=== PATIENT | female | born 1990 | race Caucasian/White ===

== ENCOUNTER 2019-07-21 23:53 | Emergency (ER) | payer OTHER ==
[2019-07-22] MEDS ORDERED: CYCLOBENZAPRINE 10 MG TAB ONE (01:12)
[2019-07-22] MEDS ORDERED: HYDROCODONE/APAP 7.5/325 MG TAB ONE (01:12)
--- NOTE | 2019-07-22 01:48 | ER ---
Nurse's Notes [facility] Name: Mayda Argueta Age: 28 yrs Sex: Female : 1990 Arrival Date: 07/21/2019 Time: 23:56 Bed 6 Private MD: Diagnosis: Strain of muscle, fascia and tendon at neck level;Radiculopathy, cervicothoracic region Presentation: 07/21 00:04 Chief complaint:. Chief complaint: Patient states: Bilateral shoulder pain that ll1 radiates down both arms. Had massage/adjustment and Tuesday. Unable to barely lift arms now. Reports 10/10 pain today. + radial pulses, cap. refill <2 seconds. 26 weeks 5 days . G3, P1. Denies vaginal bleeding/discharge. + movement. Coronavirus screen: Proceed with normal triage. Patient denies a cough. Patient denies shortness of breath or difficulty breathing. Patient denies measured and/or subjective temperature greater than 100.4F prior to today's visit. Patient denies travel on a cruise ship or to a country the [facility] currently lists as an affected area. Patient denies contact with known and/or suspected case of COVID-19. Ebola Screen: Patient denies travel to an Ebola-affected area in the 21 days before illness onset. Initial Sepsis Screen: Does the patient meet any 2 criteria? HR > 90 bpm. No. Patient's initial sepsis screen is negative. Does the patient have a suspected source of infection? No. Patient's initial sepsis screen is negative. Risk Assessment: Do you want to hurt yourself or someone else? Patient reports no desire to harm self or others. Onset of symptoms was July 17, 2019. 00:04 Method Of Arrival: Ambulatory ll1 00:04 Acuity: CATHY 3 ll1 Historical: - Allergies: 00:07 No Known Allergies; ll1 - PMHx: 00:07 None; ll1 - PSHx: 00:07 Cholecystectomy; ; Appendectomy; ll1 - Social history:: Smoking status: Patient denies any tobacco usage or history of. Patient/guardian denies using alcohol, street drugs, tobacco products. Screenin:00 Abuse screen: Denies threats or abuse. Nutritional screening: No deficits noted. jb4 Tuberculosis screening: No symptoms or risk factors identified. Fall Risk None identified. Assessment: 00:00 General: Appears in no apparent distress. uncomfortable, Behavior is calm, cooperative, jb4 appropriate for age. Pain: Complains of pain in left scapular area and right scapular area Pain radiates to right arm and left arm Pain currently is 10 out of 10 on a pain scale. Neuro: Level of Consciousness is awake, alert, obeys commands, Oriented to person, place, time, situation. Cardiovascular: Patient's skin is warm and dry. Respiratory: Airway is patent Respiratory effort is even, unlabored, Respiratory pattern is regular, symmetrical. GI: No signs and/or symptoms were reported involving the gastrointestinal system. : No signs and/or symptoms were reported regarding the genitourinary system. EENT: No signs and/or symptoms were reported regarding the EENT system. Derm: Skin is intact, Skin is pink, warm \T\ dry. Musculoskeletal: Circulation, motion, and sensation intact. Range of motion: limited in left arm and right arm. 01:00 Reassessment: Patient appears in no apparent distress at this time. Patient and/or jb4 family updated on plan of care and expected duration. Pain level reassessed. Patient is alert, oriented x 3, equal unlabored respirations, skin warm/dry/pink. 02:08 Reassessment: Patient appears in no apparent distress at this time. Patient and/or jb4 family updated on plan of care and expected duration. Pain level reassessed. Patient is alert, oriented x 3, equal unlabored respirations, skin warm/dry/pink. pt reports pain is better when at rest. Currently reports pain is tolerable. Vital Signs: 00:04 BP 139 / 96; Pulse 96; Resp 18; Temp 98.6; Pulse Ox 97% ; Pain 10/10; ll1 01:15 BP 115 / 79; Pulse 79; Resp 16; Pulse Ox 99% on R/A; jb4 02:00 BP 103 / 75; Pulse 72; Resp 16; Pulse Ox 97% on R/A; jb4 Vitals: 01:28 Heart Tones 155 bpm. rr5 ED Course: 07/20 23:56 Patient arrived in ED. ag3 23:58 Sameer Newby PA is PHCP. cp 23:58 Nikoali House MD is Attending Physician. cp 07/21 00:00 Patient has correct armband on for positive identification. Bed in low position. Call jb4 light in reach. Side rails up X 1. Pulse ox on. NIBP on. 00:07 Triage completed. ll1 00:08 Arm band placed on Patient placed in an exam room, on a stretcher. ll1 00:10 Brian Oviedo, RN is Primary Nurse. jb4 00:12 Rigid cervical collar applied and checked by physician. PMS Intact pre and post ll1 c-collar application. Tolerated procedure well. 00:58 CT C Spine: radiating pain down arms In Process Unspecified. EDMS 02:10 No provider procedures requiring assistance completed. Patient did not have IV access jb4 during this emergency room visit. Administered Medications: 01:13 Drug: Hydrocodone-Acetaminophen (7.5 mg-325 mg) 1 tabs {Note: Rass score 0.} Route: PO; jb4 02:11 Follow up: Response: No adverse reaction; Pain is decreased; RASS: Alert and Calm (0) jb4 01:13 Drug: Flexeril 10 mg Route: PO; jb4 02:10 Follow up: Response: No adverse reaction; Pain is decreased jb4 Outcome: 01:48 Discharge ordered by MD. cp 02:10 Discharged to home ambulatory. jb4 02:10 Condition: stable 02:10 Discharge instructions given to patient, Instructed on discharge instructions, follow up and referral plans. no driving heavy equipment, medication usage, Demonstrated understanding of instructions, follow-up care, medications, Prescriptions given X 3. 02:11 Patient left the ED. jb4 Signatures: Dispatcher [employer] EDAZ Sameer Newby PA PA cp Bryson, James, RN RN jb4 Rasheeda Lira3 Noam Levin, RN RN rr5 Antonio Hills, TK RN ll1 Corrections: (The following items were deleted from the chart) 00:09 00:04 Chief complaint: Patient states: Bilateral shoulder pain that radiates down both ll1 arms. Had massage/adjustment and Tuesday. Unable to barely lift arms now. Reports 10/10 pain today. + radial pulses, cap. refill <2 seconds. ll1 02:11 00:00 Pain: Complains of pain in thoracic area Pain radiates to right arm and left arm jb4 Pain currently is 10 out of 10 on a pain scale. jb4
--- NOTE | 2019-07-22 01:49 | EDPHYS ---
Physician Documentation [facility] Name: Mayda Argueta Age: 28 yrs Sex: Female : 1990 Arrival Date: 07/21/2019 Time: 23:56 Bed 6 Private MD: ED Physician Nikolai House HPI: 07/21 00:05 This 28 yrs old Female presents to ER via Ambulatory with complaints of Arm Pain. cp 00:05 The patient or guardian complains of pain, that is acute. The complaints affect the cp right shoulder and right arm, left shoulder and left arm. Context: Patient reports having adjustment of neck performed by chiropractor on and Tuesday of this past week. Denies immediate pain. Treatment prior to arrival includes: no previous treatment. Associated signs and symptoms: Pertinent positives: pain, weakness, Pertinent negatives: numbness. Historical: - Allergies: 00:07 No Known Allergies; ll1 - PMHx: 00:07 None; ll1 - PSHx: 00:07 Cholecystectomy; ; Appendectomy; ll1 - Social history:: Smoking status: Patient denies any tobacco usage or history of. Patient/guardian denies using alcohol, street drugs, tobacco products. ROS: 00:10 Neck: Positive for pain at rest. cp 00:10 Constitutional: Negative for fever. cp 00:10 ENT: Negative for sore throat, difficulty swallowing, difficulty handling secretions. 00:10 Cardiovascular: Negative for chest pain. 00:10 Respiratory: Negative for cough, shortness of breath. 00:10 Abdomen/GI: Negative for abdominal pain. 00:10 : Negative for vaginal bleeding. 00:10 MS/extremity: Positive for decreased range of motion, pain, of the right arm and left arm, Negative for paresthesias. 00:10 Neuro: Positive for weakness, of the right arm and left arm, Negative for altered mental status, headache. 00:10 All other systems are negative. Exam: 00:26 Constitutional: The patient appears in no acute distress, alert, awake, non-toxic, well cp developed, well nourished, uncomfortable. 00:26 Head/Face: Normocephalic, atraumatic. cp 00:26 Eyes: Periorbital structures: appear normal, Pupils: equal, round, and reactive to light and accomodation, Extraocular movements: intact throughout, Conjunctiva: normal, no exudate, no injection, Lids and lashes: appear normal, bilaterally. 00:26 ENT: External ear(s): are unremarkable, Ear canal(s): are normal, clear, TM's: dullness, bilaterally, Nose: is normal, Mouth: Lips: moist, Oral mucosa: moist, Posterior pharynx: Airway: no evidence of obstruction, patent. 00:26 Neck: C-spine: vertebral tenderness, that is mild, appreciated at C6 and C7, crepitus, is not appreciated, ROM/movement: pain, that is severe, with any movement, limited range of motion, that is moderate, in any direction. 00:26 Chest/axilla: Inspection: normal, Palpation: is normal, no crepitus, no tenderness. 00:26 Cardiovascular: Rate: normal, Rhythm: regular. 00:26 Respiratory: the patient does not display signs of respiratory distress, Respirations: normal, no use of accessory muscles, labored breathing, is not present, Breath sounds: are clear throughout, no decreased breath sounds. 00:26 Abdomen/GI: Inspection: gravid appearance, is noted, Palpation: abdomen is soft and non-tender, in all quadrants. 00:26 Back: pain, that is severe, of the upper thoracic area between scapula, ROM is painful, with all movement. 00:26 Musculoskeletal/extremity: Extremities: grossly normal except: noted in the right arm and left arm: pain, ROM: limited active range of motion due to pain, in the right arm and left arm, Pulses: noted to be 2+ in the right radial artery and left radial artery, the right arm and left arm Sensation intact. 00:26 Neuro: Orientation: to person, place \T\ time. Mentation: is normal, Deep tendon reflexes are 2+ (normal) in the right bicep, right tricep, right brachioradialis, left bicep, left tricep and left brachioradialis. Vital Signs: 00:04 BP 139 / 96; Pulse 96; Resp 18; Temp 98.6; Pulse Ox 97% ; Pain 10/10; ll1 01:15 BP 115 / 79; Pulse 79; Resp 16; Pulse Ox 99% on R/A; jb4 02:00 BP 103 / 75; Pulse 72; Resp 16; Pulse Ox 97% on R/A; jb4 MDM: 07/20 23:59 Patient medically screened. cp 07/21 00:15 Differential diagnosis: cervical fracture, torticollis, cervical sprain. cp 01:47 Data reviewed: vital signs, nurses notes, radiologic studies, CT scan. cp 01:47 Counseling: I had a detailed discussion with the patient and/or guardian regarding: the cp historical points, exam findings, and any diagnostic results supporting the discharge/admit diagnosis, radiology results, the need for outpatient follow up, an OB/Gyne specialist, to return to the emergency department if symptoms worsen or persist or if there are any questions or concerns that arise at home. Response to treatment: the patient's symptoms have markedly improved after treatment, and as a result, I will discharge patient. 07/21 00:07 Order name: CT C Spine: radiating pain down arms cp 07/21 00:07 Order name: FHT's; Complete Time: 01:28 cp 07/21 00:10 Order name: C-Collar; Complete Time: 00:14 cp Administered Medications: 01:13 Drug: Hydrocodone-Acetaminophen (7.5 mg-325 mg) 1 tabs {Note: Rass score 0.} Route: PO; jb4 02:11 Follow up: Response: No adverse reaction; Pain is decreased; RASS: Alert and Calm (0) jb4 01:13 Drug: Flexeril 10 mg Route: PO; jb4 02:10 Follow up: Response: No adverse reaction; Pain is decreased jb4 Disposition: 02:15 Chart complete. cp 02:17 Co-signature as Attending Physician, Nikolai House MD. pkl Disposition: 07/22/19 01:48 Discharged to Home. Impression: Strain of muscle, fascia and tendon at neck level, Radiculopathy, cervicothoracic region. - Condition is Stable. - Discharge Instructions: Cervical Radiculopathy, Cervical Sprain, Heat Therapy. - Prescriptions for Lidoderm 5 % Topical adhesive patch,medicated - apply 2 patch by TRANSDERMAL route once daily As needed; 1 box. Tylenol- Codeine #3 300-30 mg Oral Tablet - take 2 tablets by ORAL route every 6 hours As needed no driving while taking medication; 15 tablet. Cyclobenzaprine 10 mg Oral Tablet - take 1 tablet by ORAL route every 8 hours As needed no driving while taking medication; 10 tablet. - Medication Reconciliation Form, Thank You Letter, Antibiotic Education, Prescription Opioid Use form. - Follow up: Private Physician; When: 2 - 3 days; Reason: Recheck today's complaints. - Problem is new. - Symptoms have improved. Signatures: Dispatcher [employer] EDMS Nikolai House MD MD pkl Page, Corey, PA PA cp Bryson, James RN RN jb4 Antonio Hills RN RN ll1 Corrections: (The following items were deleted from the chart) 02:11 01:48 07/22/2019 01:48 Discharged to Home. Impression: Strain of muscle, fascia and jb4 tendon at neck level; Radiculopathy, cervicothoracic region. Condition is Stable. Forms are Medication Reconciliation Form, Thank You Letter, Antibiotic Education, Prescription Opioid Use. Follow up: Private Physician; When: 2 - 3 days; Reason: Recheck today's complaints. Problem is new. Symptoms have improved. cp
[2019-07-22 02:18] VITALS: TEMP 98.6
[2019-07-22 02:21] VITALS: BP 103/75; O2SAT 97
--- NOTE | 2019-07-22 13:19 | RAD REPORT ---
EXAM DESCRIPTION: CT - C Spine Wo Con - 07/22/2019 6:55 am CLINICAL HISTORY: The patient is 28 years old and is Female; PAIN TECHNIQUE: Axial computed tomography images of the cervical spine without intravenous contrast. Sa gittal and coronal reformatted images were created and reviewed. This CT exam was performed using o ne or more of the following dose reduction techniques: automated exposure control, adjustment of th e mA and/or kV according to patient size, and/or use of iterative reconstruction technique. COMPARISON: No relevant prior studies available. FINDINGS: VERTEBRAE: The vertebral body heights and alignment are maintained. No acute fracture. DISCS/SPINAL CANAL/NEURAL FORAMINA: The intervertebral disc spaces are maintained. No spinal can al stenosis. SOFT TISSUES: The soft tissues are normal. IMPRESSION: No fracture or malalignment of the cervical spine. Electronically signed by: Luli Pendleton MD 07/22/2019 1:13 AM CDT Due to temporary technical issues with the PACS/Fluency reporting system, reports are being signed by the in house radiologist as a courtesy to ensure prompt reporting. The interpreting radiologist is f ully responsible for the content of the report.
== END 2019-07-22 02:11 | disposition home or self-care (01) ==
LOC: ER 23:53
DX: S16.1XXA Strain of muscle, fascia and tendon at neck level, initial encounter (principal); M54.13 Radiculopathy, cervicothoracic region; X58.XXXA Exposure to other specified factors, initial encounter; Y93.89 Activity, other specified; Y92.9 Unspecified place or not applicable
CPT/HCPCS: 72125; 99284

== ENCOUNTER 2020-08-10 19:35 | Emergency (ER) | payer OTHER ==
--- OUTSIDE RECORDS SUMMARY | 2020-08-10 19:38 | XMS REPORT | Continuity of Care Document ---
:1990 Author Organization [facility] t Address [address] [place] [address] Care Team Providers Name Role Phone Lucia Baldwin PHD Attending Clinician Slick Sánchez DO Attending Clinician Fabricio SMITH Attending Clinician Problems This patient has no known problems. Allergies, Adverse Reactions, Alerts This patient has no known allergies or adverse reactions. Medications This patient has no known medications. Procedures This patient has no known procedures. Encounters Start End Encounter Admission Attending Care Care Encounter Source Date/Time Date/Time Type Type Clinicians Facility Department ID 2020-07-04 2020-07-04 SUPRIYA Jarvis [id number] 08:02:38 09:02:38 ne Visit [id number] Clear [id number] [place] [id number] [facility] [address] 2020-06-19 2020-06-19 SUPRIYA Jarvis 1..[id number] 08:11:06 09:11:06 ne Visit [facility] [id number] Clear [id number] [place] [id number] [facility] [address] 2020-06-17 2020-06-17 Patient SUPRIYA Sánchez [id number] 00:00:00 00:00:00 Outreach [facility] [id number] Haroon [facility] [id number] [facility] [id number] 2020-06-12 2020-06-12 Telemedici Denny [facility] [id number] 08:09:12 14:44:13 ne Visit Lucia [employer] [id number] Clear [id number] [place] [id number] [facility] [address] 2020-05-19 2020-05-19 Telephone Denny [facility] [id number] 00:00:00 00:00:00 Lucai [employer] [id number] Clear [id number] [place] [id number] [facility] [address] 2020-04-29 2020-04-29 Telemedici Denny [facility] [id number] 09:04:10 13:44:29 ne Visit Lucia [employer] [id number] Clear [id number] [place] [id number] [facility] [address] 2020-04-01 2020-04-01 Telemedicmary Regalado [facility] [id number] 15:49:47 17:45:43 ne Visit [facility] [id number] [place] [id number] [facility] [phone] [place] [address] [address] One Results This patient has no known results.
[2020-08-10 20:54] LABS: Urine Blood Negative (Negative); Urine Glucose Negative (Negative); Urine Protein Negative (Negative); Urine Specific Gravity >=1.030 (1.005-1.030); Urine pH 5.5 (5.0-7.0)
[2020-08-10 21:11] LABS: Urine Specific Gravity/Preg >1.030 (1.005-1.030)
[2020-08-10 23:12] LABS: Absolute Lymphocytes (CBC) 3.5 K/uL (0.7-4.9); Basophils % 0.7 % (0-1.3); Hematocrit 33.5 % (36.0-45.0); Lymphocytes % 42.4 % (15.3-44.8); MPV 8.7 fL (7.6-11.3)
[2020-08-10] MEDS ORDERED: ONDANSETRON 4 MG/2 ML VIAL ONE (23:12)
[2020-08-10] MEDS ORDERED: NA CHLORIDE 0.9% 1,000 ML ONE (23:12)
[2020-08-10] MEDS ORDERED: MORPHINE 4 MG/ML SYR ONE (23:12)
[2020-08-10 23:23] LABS: ALT/SGPT 33 U/L (12-78); AST/SGOT 25 U/L (15-37); Albumin 3.7 g/dL (3.4-5.0); Alkaline Phosphatase 109 U/L (45-117); BUN Blood Urea Nitrogen 16 mg/dL (7-18); Bicarbonate 28 mmol/L (21-32); Bilirubin Direct < 0.1 mg/dL (0-0.2); Bilirubin Total 0.2 mg/dL (0.2-1.0); Glucose Level 97 mg/dL (74-106); Lipase 98 U/L (73-393); Potassium 3.7 mmol/L (3.5-5.1); Protein, Total 7.8 g/dL (6.4-8.2); Sodium Level 141 mmol/L (136-145)
--- NOTE | 2020-08-10 23:34 | ER ---
Nurse's Notes [facility] Name: Mayda Argueta Age: 29 yrs Sex: Female : 1990 Arrival Date: 08/10/2020 Time: 20:14 Bed 28 Private MD: Diagnosis: Right renal colic Presentation: 08/10 20:14 Chief complaint: Patient states: I may have a kidney stone. R flank pain since ca1 yesterday and nausea. Reports HX of kidney stones. Coronavirus screen: Client denies travel out of the [place] in the last 14 days. nausea, Client presents with at least one sign or symptom that may indicate coronavirus-19. Standard/surgical mask placed on the client. Provider contacted for isolation considerations. Ebola Screen: Patient negative for fever greater than or equal to 101.5 degrees Fahrenheit, and additional compatible Ebola Virus Disease symptoms Patient denies exposure to infectious person. Patient denies travel to an Ebola-affected area in the 21 days before illness onset. No symptoms or risks identified at this time. Initial Sepsis Screen: Does the patient meet any 2 criteria? No. Patient's initial sepsis screen is negative. Does the patient have a suspected source of infection? No. Patient's initial sepsis screen is negative. Risk Assessment: Do you want to hurt yourself or someone else? Patient reports no desire to harm self or others. Onset of symptoms was August 10, 2020. 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 Flu vaccine is not up to date. - Social history:: Smoking status: Patient denies any tobacco usage or history of. Screenin:03 Abuse screen: Denies threats or abuse. Denies injuries from another. Nutritional zb screening: No deficits noted. Tuberculosis screening: No symptoms or risk factors identified. Fall Risk None identified. Assessment: 22:50 General: Appears in no apparent distress. uncomfortable, Behavior is calm, cooperative, zb appropriate for age. Pain: Complains of pain in posterior aspect of right lateral abdomen and anterior aspect of right lateral abdomen Pain radiates to anterior aspect of right lateral abdomen Pain currently is 9 out of 10 on a pain scale. Quality of pain is described as throbbing, Pain began today. Neuro: Level of Consciousness is awake, alert, obeys commands, Oriented to person, place, time, situation. Cardiovascular: Capillary refill < 3 seconds Patient's skin is warm and dry. Respiratory: Airway is patent Respiratory effort is even, unlabored, Respiratory pattern is regular, symmetrical. GI: Abdomen is round Bowel sounds present X 4 quads. Abd is soft and non tender X 4 quads. : Reports pain in right flank(s). Derm: Skin is intact, is healthy with good turgor, Skin is dry, Skin is normal. Musculoskeletal: Circulation, motion, and sensation intact. Range of motion: intact in all extremities. 23:49 Reassessment: Patient appears in no apparent distress at this time. Patient and/or zb family updated on plan of care and expected duration. Pain level reassessed. Patient is alert, oriented x 3, equal unlabored respirations, skin warm/dry/pink. patient ambulated out. gait even and steady. pain decreased. Vital Signs: 20:14 BP 144 / 84; Pulse 60; Resp 16 S; Temp 97.6(TE); Pulse Ox 100% on R/A; Weight 80.74 kg ca1 (R); Height 5 ft. 3 in. (160.02 cm) (R); Pain 8/10; 23:04 BP 123 / 80; Pulse 62; Resp 16; Pulse Ox 96% on R/A; zb 23:48 BP 118 / 73; Pulse 72; Resp 16; Pulse Ox 100% on R/A; zb 20:14 Body Mass Index 31.53 (80.74 kg, 160.02 cm) ca1 ED Course: 20:14 Patient arrived in ED. es 20:16 Triage completed. ca1 20:16 Arm band placed on right wrist. ca1 21:54 CT Stone Protocol In Process Unspecified. EDMS 22:04 Bee Torre RN is Primary Nurse. zb 22:32 Nikolai House MD is Attending Physician. pkl 23:00 Inserted saline lock: 20 gauge in left antecubital area, using aseptic technique. Blood zb collected. 23:26 Patient has correct armband on for positive identification. Bed in low position. Call zb light in reach. Side rails up X 1. Pulse ox on. NIBP on. 23:33 Sumit Sams MD is Referral Physician. pkl 23:49 No provider procedures requiring assistance completed. IV discontinued, intact, zb bleeding controlled, No redness/swelling at site. Pressure dressing applied. Administered Medications: 23:02 Drug: Zofran (Ondansetron) 4 mg Route: IVP; Site: left antecubital; zb 23:30 Follow up: Response: No adverse reaction; Nausea is decreased zb 23:03 Drug: NS 0.9% 1000 ml Route: IV; Rate: 1000 ml; Site: left antecubital; zb 23:45 Follow up: Response: No adverse reaction; IV Status: Completed infusion; IV Intake: zb 1000ml 23:03 Drug: morphine 4 mg {Note: RASS 0.} Route: IVP; Site: left antecubital; zb 23:45 Follow up: Response: No adverse reaction; Pain is decreased; RASS: Alert and Calm (0) zb Outcome: 23:34 Discharge ordered by . pkl 23:49 Discharged to home ambulatory. zb 23:49 Condition: stable 23:49 Discharge instructions given to patient, family, Instructed on discharge instructions, follow up and referral plans. medication usage, Demonstrated understanding of instructions, follow-up care, medications, Prescriptions given X 3. 23:50 Patient left the ED. zb Signatures: Dispatcher [employer] Nikolai Patterson MD MD pkl Kenna Chávez Cheryl, RN RN ca1 Brown, Zipporah, RN RN zb Corrections: (The following items were deleted from the chart) 23:26 23:04 Pulse 62bpm; Resp 16bpm; Pulse Ox 96% RA; zb zb
--- NOTE | 2020-08-10 23:34 | EDPHYS ---
Physician Documentation [facility] Name: Mayda Argueta Age: 29 yrs Sex: Female : 1990 Arrival Date: 08/10/2020 Time: 20:14 Bed 28 Private MD: ED Physician Nikolai House HPI: 08/10 22:44 This 29 yrs old Female presents to ER via Ambulatory with complaints of Nausea, Back pkl Pain. 22:44 The patient complains of pain in the right flank. The pain does not radiate. Onset: The pkl symptoms/episode began/occurred yesterday. Associated signs and symptoms: Pertinent positives: nausea. H/O right kidney stone 1 year ago. 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 Flu vaccine is not up to date. - Social history:: Smoking status: Patient denies any tobacco usage or history of. ROS: 22:44 Eyes: Negative for injury, pain, redness, and discharge, ENT: Negative for injury, pkl pain, and discharge, Neck: Negative for injury, pain, and swelling, Cardiovascular: Negative for chest pain, palpitations, and edema, Respiratory: Negative for shortness of breath, cough, wheezing, and pleuritic chest pain, Abdomen/GI: Negative for abdominal pain, nausea, vomiting, diarrhea, and constipation. 22:44 Back: Positive for flank pain, on the right. 22:44 : Negative for urinary symptoms. 22:44 MS/extremity: Negative for acute changes. 22:44 Skin: Negative for rash. 22:44 Neuro: Negative for altered mental status. Exam: 22:44 Head/Face: Normocephalic, atraumatic. Eyes: Pupils equal round and reactive to light, pkl extra-ocular motions intact. Lids and lashes normal. Conjunctiva and sclera are non-icteric and not injected. Cornea within normal limits. Periorbital areas with no swelling, redness, or edema. ENT: Nares patent. No nasal discharge, no septal abnormalities noted. Tympanic membranes are normal and external auditory canals are clear. Oropharynx with no redness, swelling, or masses, exudates, or evidence of obstruction, uvula midline. Mucous membranes moist. Neck: Trachea midline, no thyromegaly or masses palpated, and no cervical lymphadenopathy. Supple, full range of motion without nuchal rigidity, or vertebral point tenderness. No Meningismus. Chest/axilla: Normal chest wall appearance and motion. Nontender with no deformity. No lesions are appreciated. Cardiovascular: Regular rate and rhythm with a normal S1 and S2. No gallops, murmurs, or rubs. Normal PMI, no JVD. No pulse deficits. Respiratory: Lungs have equal breath sounds bilaterally, clear to auscultation and percussion. No rales, rhonchi or wheezes noted. No increased work of breathing, no retractions or nasal flaring. Abdomen/GI: Soft, non-tender, with normal bowel sounds. No distension or tympany. No guarding or rebound. No evidence of tenderness throughout. 22:44 Back: pain, that is moderate, of the right flank. 22:44 : Exam negative for acute changes. 22:44 Musculoskeletal/extremity: Exam is negative for acute changes. 22:44 Skin: Exam negative for rash. 22:44 Neuro: Orientation: is normal, Mentation: is normal, Cranial nerves: grossly normal, Motor: is normal. Vital Signs: 20:14 BP 144 / 84; Pulse 60; Resp 16 S; Temp 97.6(TE); Pulse Ox 100% on R/A; Weight 80.74 kg ca1 (R); Height 5 ft. 3 in. (160.02 cm) (R); Pain 8/10; 23:04 BP 123 / 80; Pulse 62; Resp 16; Pulse Ox 96% on R/A; zb 23:48 BP 118 / 73; Pulse 72; Resp 16; Pulse Ox 100% on R/A; zb 20:14 Body Mass Index 31.53 (80.74 kg, 160.02 cm) ca1 MDM: 22:32 Patient medically screened. pkl 23:30 Data reviewed: vital signs, nurses notes, lab test result(s), radiologic studies, CT pkl scan. ED course: Discussed lab. and CT Scan results with patient. Advised to follow up with Urologist in 2 to 3 days. Return if necessary. 08/10 20:54 Order name: Urine Dipstick-Ancillary; Complete Time: 22:40 EDMS 08/10 20:54 Order name: Urine --Ancillary (enter results); Complete Time: 22:40 iw 08/10 22:42 Order name: Basic Metabolic Panel; Complete Time: 23:27 pkl 08/10 22:42 Order name: CBC with Diff; Complete Time: 23:17 pkl 08/10 22:42 Order name: Hepatic Function; Complete Time: 23:27 pkl 08/10 22:42 Order name: Lipase; Complete Time: 23:27 pkl 08/10 20:55 Order name: CT Stone Protocol iw 08/10 22:42 Order name: IV Saline Lock; Complete Time: 22:48 pkl 08/10 22:42 Order name: Labs collected and sent; Complete Time: 22:48 pkl Administered Medications: 23:02 Drug: Zofran (Ondansetron) 4 mg Route: IVP; Site: left antecubital; zb 23:30 Follow up: Response: No adverse reaction; Nausea is decreased zb 23:03 Drug: NS 0.9% 1000 ml Route: IV; Rate: 1000 ml; Site: left antecubital; zb 23:45 Follow up: Response: No adverse reaction; IV Status: Completed infusion; IV Intake: zb 1000ml 23:03 Drug: morphine 4 mg {Note: RASS 0.} Route: IVP; Site: left antecubital; zb 23:45 Follow up: Response: No adverse reaction; Pain is decreased; RASS: Alert and Calm (0) zb Disposition: 08/10/20 23:34 Discharged to Home. Impression: Right renal colic. - Condition is Stable. - Prescriptions for Zofran 4 mg Oral Tablet - take 1 tablet by ORAL route every 12 hours As needed; 10 tablet. Flomax 0.4 mg Oral Capsule, Sust. Release 24 hr - take 1 capsule by ORAL route once daily 1/2 hour following the same meal each day; 15 capsule. - Medication Reconciliation Form, Thank You Letter, Antibiotic Education, Prescription Opioid Use form. - Follow up: Sumit Sams MD; When: 2 - 3 days; Reason: Re-evaluation by your physician. - Problem is new. - Symptoms have improved. Signatures: Dispatcher [employer] Nikolai Patterson MD MD pkPrachi Rhodes RN Bee Goyal RN RN zb Corrections: (The following items were deleted from the chart) 23:50 23:34 08/10/2020 23:34 Discharged to Home. Impression: Right renal colic. Condition is zb Stable. Forms are Medication Reconciliation Form, Thank You Letter, Antibiotic Education, Prescription Opioid Use. Follow up: Sumit Sams; When: 2 - 3 days; Reason: Re-evaluation by your physician. Problem is new. Symptoms have improved. pkl
[2020-08-11 00:29] VITALS: TEMP 97.6
[2020-08-11 00:36] VITALS: BP 118/73; O2SAT 100
--- NOTE | 2020-08-11 12:25 | RAD REPORT ---
EXAM DESCRIPTION: CT - Stone Protocol - 08/11/2020 6:26 am CLINICAL HISTORY: The patient is 29 years old and is Female; KIDNEY STONES TECHNIQUE: Axial computed tomography images of the abdomen and pelvis without intravenous contrast. Sagittal and coronal reformatted images were created and reviewed. This CT exam was performed usi ng one or more of the following dose reduction techniques: automated exposure control, adjustment o f the mA and/or kV according to patient size, and/or use of iterative reconstruction technique. DLP: 730 mGy*cm COMPARISON: None. FINDINGS: LUNG BASES: Lung bases are clear. HEART: Visualized heart is normal. ABDOMEN: LIVER: Unremarkable. GALLBLADDER AND BILE DUCTS: Prior cholecystectomy. No ductal dilation. PANCREAS: Unremarkable. No ductal dilation. SPLEEN: Unremarkable. No splenomegaly. ADRENALS: Unremarkable. No mass. KIDNEYS AND URETERS: Bilateral nonobstructive renal stones. No hydronephrosis. STOMACH AND BOWEL: Unremarkable. No obstruction. No mucosal thickening. PELVIS: APPENDIX: Prior appendectomy. BLADDER: Bladder is decompressed. No stones. REPRODUCTIVE: Unremarkable as visualized. ABDOMEN and PELVIS: INTRAPERITONEAL SPACE: Unremarkable. No free air. No significant fluid collection. BONES/JOINTS: No acute fracture. No dislocation. SOFT TISSUES: Bilateral breast implants. VASCULATURE: Unremarkable. No abdominal aortic aneurysm. LYMPH NODES: Unremarkable. No enlarged lymph nodes. TUBES, LINES AND DEVICES: Intrauterine contraceptive device. IMPRESSION: No acute abdominal or pelvic abnormality. No obstructive uropathy. Bilateral nonobstructive renal stones. Electronically signed by: Moiz Campos DO 08/10/2020 10:28 PM CDT Due to temporary technical issues with the PACS/Fluency reporting system, reports are being signed by the in house radiologist without review as a courtesy to ensure prompt reporting. The interpreting r adiologist is fully responsible for the content of the report.
== END 2020-08-10 23:50 | disposition home or self-care (01) ==
LOC: ER 19:35
DX: N23 Unspecified renal colic (principal); Z87.442 Personal history of urinary calculi
CPT/HCPCS: 85025; 80048; 36415; 81025; 80076; 81003; 83690; 76377; 74176; J7030; J2405; 96361; 96374; 96375; 99284

== ENCOUNTER 2021-08-22 18:09 | Emergency (ER) | payer OTHER ==
--- OUTSIDE RECORDS SUMMARY | 2021-08-22 18:12 | XMS REPORT | Continuity of Care Document ---
:1990 Author Organization [facility] t Address [address] [place] [address] Care Team Providers Name Role Phone David BLOCK, Keisha A Primary Care Physician [phone] Doctor Unassigned, Name Attending Clinician Unavailable Denny PHD Attending Clinician Haroon Sánchez DO Attending Clinician Fabricio SMITH Attending Clinician Payers Payer Name Policy Type Policy Number Effective Date Expiration Date S ource Problems Condition Condition Condition Status Onset Resolution Last Treating Co mments Source Name Details Category Date Date Treatment Clinician Date ERRONEOUS ERRONEOUS Disease Active 2020-03 Last Uni vers ENCOUNTER- ENCOUNTER- 2 Assessmen ity of -DISREGARD -DISREGARD 00:00: t & Plan: [place] [id number] [place] [facility] g of this Branch note might be different from the original. Error Cholestasi Cholestasi Disease Active 2020-0 U nivers s of s of 7-07 [place] 37 weeks 37 weeks Disease Active 2019- Unive rs gestation gestation 7-06 ity of of of 00:00: [place] 00 [facility] Branch Obesity Obesity Disease Active 2018-03 Univers (BMI (BMI 1-22 ity of 30-39.9) 30-39.9) 00:00: [place] [address] Medical Branch Disease Active U nivers depression depression 4-04 it y of 00:00: [place] 00 Medical Branch Calculus Calculus Disease Active 2017-03 Overview: Un vladimir of of 0-05 Formattin ity of gallbladde gallbladde 00:00: g of this [place] r without r without 00 note [facility] cholecysti cholecysti might be Branch tis tis different without without from the obstructio obstructio original. n n Added automatic ally from request for surgery [id number] Cholelithi Cholelithi Disease Active 2017-03 U nivers asis asis 0-02 ity of 00:00: [place] 00 [facility] Branch Cholestasi Cholestasi Disease Active U nivers s of s of 8-21 [place] in third in third 00 Medica l trimester trimester Bran ch Depression Depression Disease Active U nivers during during 8-03 [place] third [place] third 00 Med[place] l trimester trimester Bran ch Anemia of Anemia of Disease Active Uni vers mother in mother in 6-19 [place]y of , , [place] ante[place] antepartum 00 [facility] High-risk High-risk Disease Active Uni vers 2-23 ity of in third in third 00:00: [place] trimester trimester 00 [facility] Branch Maternal Maternal Disease Active Unive rs condyloma condyloma 1-23 ity of acuminatum [place]uminatum [place] affecting affecting 00 [facility] , , Br anch antepartum antepartum Allergies, Adverse Reactions, Alerts This patient has no known allergies or adverse reactions. Family History Family Member Diagnosis Comments Start Date Stop Date Source Natural father No Significant Univer sity of Medical Problems [facility] Maternal Diabetes [place] of grandmother [facility] Natural mother No Significant Univer sity of Medical Problems [facility] Family member Arthritis [facility] Family member Asthma [facility] Family member defects [facility] Family member Cancer [facility] Family member Colon Cancer [facility] Family member Depression [facility] Family member Genetic [facility] Family member Heart [facility] Family member High cholesterol [facility] member Hypertension Universit y of [facility] Family member Mental retardation Uni versity of [facility] Family member Neurological Universit y of [facility] Family member Osteoporosis Universit y of [facility] Family member Other - see University of comments [facility] Family member Ovarian Cancer Univers ity of [facility] Family member Psychiatry [facility] Family member Uterine Cancer [facility] Social History Social Habit Start Date Stop Date Quantity Comments Source Alcohol intake 2021-07-23 2021-07-23 Ex-drinker [facility] 00:00:00 00:00:00 (finding) [facility] Tobacco use and 2017-04-19 2017-04-19 Never used Universit y of exposure 00:00:00 00:00:00 [facility] Sex Ass[birth year] At [birth year] Universit y of 00:00:00 00:00:00 [facility] Smoking Status Start Date Stop Date Source Never smoker [facility] Medications Ordered Filled Start Stop Current Ordering Indication Dosage Frequency Signature Comments Components Source Medication Medication Date Date Medication? Clinician (SIG) Name Name buPROPion Yes [id number] 150mg Take 1 Univers XL 150 mg -28 tablet by ity o f 24 hr 00:00: mouth [place] tablet 00 daily. Medical Branch busPIRone 5 2021- No [id number] 5mg Take 1 Univers mg tablet 2-05 30-05 tablet by ity of 00:00: 04:59 mouth 3 [place] 00 :00 (three) Medical times [place] daily for 90 days. traZODone 2021- No [id number] 50mg Take 1 Univers 50 mg 2-03 05-05 tablet by ity of tablet 00:00: 04:59 mouth at [place] 00 :00 bedtime Medical for 90 Branch days. buPROPion 2021- No [id number] 150mg Take 1 Univers XL 150 mg 2-03 -28 tablet by ity of 24 hr 00:00: 00:00 mouth [place] tablet 00 :00 daily for Medical 90 days. Branch cephALEXin Yes [id number] 500mg Take 1 Univers 500 mg 6-17 capsule by ity of capsule 00:00: mouth 4 [place] 00 (four) Medical times Branch daily. miSOPROStoL 2019-03 Yes [id number] 1 po the Univers 200 mcg 2-16 evening ity of tablet 00:00: prior to [place] 00 the Medical procedure Branch PNV,calcium 2019-03 Yes [id number] 1{tbl} Take 1 Univers 72-iron,car 0-22 tablet by ity of b-folic 00:00: mouth [place] ( 00 daily. Medical PLUS) 29 mg Branch iron- 1 mg Tab docusate Yes [id number] 240mg Take 1 U nivers calcium 240 7-09 capsule by it y of mg capsule 00:00: mouth once [place] 00 daily as Medical needed for Branch Constipati on. Immunizations Ordered Filled Immunization Date Status Comments [facility] e Immunization Name Name TDAP (ADACEL) 2019-08-09 Completed University of VACCINE 00:00:00 [facility] Influenza Virus 2019-03-16 Completed Universit y of Vaccine Quad .5 mL 00:00:00 [facility] IM 6+ MO Branch Influenza Virus 2018-01-06 Completed Universit y of Vaccine Quad .5 mL 00:00:00 [facility] IM 6+ MO Branch MMR 2018-01-06 Completed University of 00:00:00 [facility] TDAP 2017-10-11 Completed University of 00:00:00 [facility] Vital Signs Vital Name Observation Time Observation Value Comments Source Systolic blood 2021-03-27 20:49:00 122 mm[Hg] Univer sity of pressure [facility] Diastolic blood 2021-03-27 20:49:00 80 mm[Hg] [facility] Heart rate 2021-03-27 20:49:00 69 /min [facility] Body temperature 2021-03-27 20:49:00 37.06 Celia [facility] Body height 2021-03-27 20:49:00 160 cm [facility] Body weight 2021-03-27 20:49:00 80.695 kg [facility] BMI 2021-03-27 20:49:00 31.51 kg/m2 [facility] Oxygen saturation in 2021-03-27 20:49:00 98 /min [facility] Arterial blood by [facility] Pulse oximetry Branch Respiratory rate 2021-02-13 13:41:00 18 /min Univ ersity of [place] [facility] Procedures Procedure Date / Time Performing Clinician Source Performed AUTHORIZATION FOR 2021-05-25 06:01:00 Doctor Unassigned, No Univ [facility] RELEASE OF PHI Name Medical Branch Encounters Start End Encounter Admission Attending Care Care Encounter Source Date/Time Date/Time Type Type Clinicians Facility Department ID 2021-05-25 2021-05-25 Orders Doctor [id number] Univers 00:00:00 00:00:00 Only Unassigned, [id number] ity of [place] 3.104.2.7 [place] .[id number] Medica l .8 Branch 2020-07-04 2020-07-04 Telemedicmary Baldwin [facility] [id number] 08:02:38 09:02:38 ne Visit LuciaMineful [id number] [place] 4.2.7.2.686 [place] [id number] Medical [address] 2020-06-19 2020-06-19 Telemedici Denny [place] [id number] 08:11:06 09:11:06 ne Visit LuciaMineful [id number] [place] [id number] [place] [id number] Medical [address] 2020-06-17 2020-06-17 Patient Gonzalo [facility] [id number] 00:00:00 00:00:00 Outreach Slick [facility] [id number] [facility] [id number] [facility] [id number] 2020-06-12 2020-06-12 Telemedicmary Baldwin [place] [id number] 08:09:12 14:44:13 ne Visit LuciaMineful [id number] [place] 4.2.7.2.686 [place] [id number] Medical [address] 2020-05-19 2020-05-19 Telephone Denny GAKYLEIGH [id number] 00:00:00 00:00:00 LuciaMineful [id number] [place] 4.2.7.2.686 [place] [id number] Medical [address] 2020-04-29 2020-04-29 Telemedici Denny [facility] [id number] 09:04:10 13:44:29 ne Visit [facility] [id number] [place] [id number] [place] [id number] Medical [address] 2020-04-01 2020-04-01 Maryana Regalado [facility] [id number] 15:49:47 17:45:43 ne Visit Jessica [employer] [id number] [place] 4.2.7.2.686 [place] [phone] [place] [address] [address] One Results This patient has no known results.
[2021-08-22 19:37] LABS: Urine Blood Negative (Negative); Urine Glucose Negative (Negative); Urine Protein Negative (Negative)
[2021-08-22] MEDS ORDERED: ONDANSETRON 4 MG/2 ML VIAL ONE (19:45)
[2021-08-22] MEDS ORDERED: MAGNESIUM SULFATE 1 gm IVPB 1 GM/100 ML BAG IV ONE (19:45)
[2021-08-22] MEDS ORDERED: MORPHINE 4 MG/ML SYR ONE (19:45)
[2021-08-22 19:50] LABS: Absolute Lymphocytes (CBC) 3.3 K/uL (0.7-4.9); Hematocrit 37.9 % (36.0-45.0); MPV 8.3 fL (7.6-11.3); RBC Red Blood Cell Count 4.36 M/uL (3.86-4.86)
[2021-08-22 19:54] LABS: Urine Bacteria <20 /HPF (<20); Urine RBC <5 /HPF (NONE SEEN)
[2021-08-22 20:05] LABS: Albumin 3.9 g/dL (3.4-5.0); Bilirubin Total 0.2 mg/dL (0.2-1.0); Potassium 3.9 mmol/L (3.5-5.1); Protein, Total 7.6 g/dL (6.4-8.2)
--- NOTE | 2021-08-22 20:07 | RAD REPORT ---
EXAM DESCRIPTION: CT - Stone Protocol - 08/22/2021 7:49 pm CLINICAL HISTORY: Abdominal pain. Right flank pain COMPARISON: 2020 TECHNIQUE: Computed axial tomography of the abdomen pelvis was obtained without oral or IV contrast. Lack of IV and oral contrast limits evaluation of solid organs, bowel, and vessels. Coronal reformat bo images were obtained and reviewed. All CT scans are performed using dose optimization technique as appropriate and may include automated exposure control or mA/KV adjustment according to patient size. FINDINGS: Multiple, bilateral punctate renal calculi. No hydronephrosis. An ureteral calculus is not noted. A bladder calculus is not present. Cholecystectomy. The liver, spleen, pancreas and adrenals appear grossly normal There is no evidence of diverticulitis. No adnexal mass IMPRESSION: Bilateral, multiple nonobstructing renal calculi
--- NOTE | 2021-08-22 21:34 | RAD REPORT ---
EXAM DESCRIPTION: US - Transvaginal Study Probe - 08/22/2021 9:22 pm CLINICAL HISTORY: Pelvic pain COMPARISON: CT August 22, 2021 FINDINGS: The uterus measures 9 x 3 x 6 cm. A fibroid is not seen. The endometrial stripe measures 5 millimeters The ovaries are normal in size and echotexture. Normal blood flow The right and left adnexa unremarkable No significant free fluid is seen. IMPRESSION: Unremarkable pelvic ultrasound
--- NOTE | 2021-08-22 21:45 | EDPHYS ---
Physician Documentation [facility] Name: Mayda Argueta Age: 30 yrs Sex: Female : 1990 Arrival Date: 08/22/2021 Time: 18:19 Bed 6 Private MD: ED Physician Chris Soliz HPI: 08/22 19:18 This 30 yrs old Female presents to ER via Ambulatory with complaints of Low Back Pain, rn Nausea. 19:18 The patient presents with pain that is acute. The symptoms are located in the low back. rn The pain radiates to the abdomen. Onset: The symptoms/episode began/occurred 5 day(s) ago. Modifying factors: The patient symptoms are alleviated by nothing, the patient symptoms are aggravated by nothing. Associated signs and symptoms: Pertinent negatives: chest pain, dysuria, fever, hematuria, incontinence, nausea, numbness, tingling, urinary retention, vomiting, weakness. Severity of symptoms: At their worst the symptoms were moderate, in the emergency department the symptoms are unchanged. The patient has experienced similar episodes in the past. The patient has not recently seen a physician. Pt reports right lower back pain, radiates to right lower abdomen, not assoc with fever/vomiting/dysuria/hematuria. Similar to previous kidney stones. Has never required intervention for previous stones. Has had cholecystectomy and appendectomy. No diarrhea. . 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 - Social history:: Smoking status: Patient denies any tobacco usage or history of. Patient/guardian denies using alcohol. - Family history:: not pertinent. - Hospitalizations: : No recent hospitalization is reported. ROS: 19:18 Constitutional: Negative for fever, chills, and weight loss, Eyes: Negative for injury, rn pain, redness, and discharge, Neck: Negative for injury, pain, and swelling, Cardiovascular: Negative for chest pain, palpitations, and edema, Respiratory: Negative for shortness of breath, cough, wheezing, and pleuritic chest pain, Abdomen/GI: Negative for nausea, vomiting, diarrhea, and constipation, Back: Negative for injury and pain, : Negative for injury, bleeding, discharge, and swelling, MS/Extremity: Negative for injury and deformity, Skin: Negative for injury, rash, and discoloration, Neuro: Negative for headache, weakness, numbness, tingling, and seizure. Exam: 19:18 Constitutional: This is a well developed, well nourished patient who is awake, alert, rn and in no acute distress. Head/Face: Normocephalic, atraumatic. Eyes: Periorbital areas with no swelling, redness, or edema. Cardiovascular: Regular rate and rhythm. No pulse deficits. Respiratory: No increased work of breathing, no retractions or nasal flaring. Abdomen/GI: Soft, non-tender Skin: Warm, dry MS/ Extremity: Pulses equal, no cyanosis. Neuro: Awake and alert, GCS 15 Vital Signs: 18:41 BP 124 / 83; Pulse 61; Resp 18; Temp 98.2(O); Pulse Ox 97% on R/A; Weight 79.83 kg; ld1 Height 5 ft. 3 in. (160.02 cm); Pain 9/10; 22:04 BP 118 / 79; Pulse 64; Resp 17; Pulse Ox 98% on R/A; jb4 18:41 Body Mass Index 31.18 (79.83 kg, 160.02 cm) ld1 MDM: 19:04 Patient medically screened. rn 21:42 Differential diagnosis: ureterolithiasis, hydronephrosis, passed kidney stone, UTI, rn , ovarian torsion, ovarian cyst. Data reviewed: vital signs, nurses notes, lab test result(s), radiologic studies, CT scan, ultrasound, and as a result, I will discharge patient. Counseling: I had a detailed discussion with the patient and/or guardian regarding: the historical points, exam findings, and any diagnostic results supporting the discharge/admit diagnosis, lab results, radiology results, the need for outpatient follow up, to return to the emergency department if symptoms worsen or persist or if there are any questions or concerns that arise at home. Response to treatment: the patient's symptoms have markedly improved after treatment, and as a result, I will discharge patient. Special discussion: Based on the patient's Hx, exam, and Dx evaluation, there is no indication for emergent surgery or inpatient Tx. It is understood by the patient/guardian that if the Sx's persist or worsen they need to return immediately for re-evaluation. I discussed with the patient/guardian in detail that at this point there is no indication for admission to the hospital. It is understood, however, that if the symptoms persist or worsen the patient needs to return immediately for re-evaluation. 08/22 19:14 Order name: Urine Culture 08/22 19:14 Order name: Urine Microscopic Only; Complete Time: 20:07 08/22 19:14 Order name: CBC with Diff; Complete Time: 20:07 08/22 19:14 Order name: CMP; Complete Time: 20: 08/22 19:14 Order name: Lipase; Complete Time: 20:07 08/22 19:37 Order name: Urine Dipstick-Ancillary; Complete Time: 20:07 EDPA 08/22 19:14 Order name: CT Stone Protocol; Complete Time: 20:17 08/22 19:37 Order name: Urine --Ancillary (enter results); Complete Time: 20:07 mw2 08/22 20:37 Order name: Transvaginal Study Probe [facility] 08/22 21:24 Order name: Pelvis Complete [facility] 08/22 19:14 Order name: Urine Dipstick-Ancillary (obtain specimen); Complete Time: 19:37 08/22 19:14 Order name: Urine Test (obtain specimen); Complete Time: 19:37 rn 08/22 19:14 Order name: IV Saline Lock; Complete Time: 19:46 rn 08/22 19:14 Order name: Labs collected and sent; Complete Time: 19:46 rn Administered Medications: 19:55 Drug: Zofran (Ondansetron) 4 mg Route: IVP; Site: right antecubital; lg3 20:07 Follow up: Response: No adverse reaction lg3 19:55 Drug: morphine 4 mg Route: IVP; Infused Over: 4 mins; Site: right antecubital; lg3 20:07 Follow up: Response: No adverse reaction; RASS: Alert and Calm (0) lg3 19:55 Drug: Magnesium Sulfate 1 grams Route: IVPB; Infused Over: 1 hrs; Site: right lg3 antecubital; 20:06 Follow up: Response: No adverse reaction; IV Intake: 100ml lg3 Disposition Summary: 08/22/21 21:44 Discharge Ordered Location: Home rn Problem: new rn Symptoms: have improved rn Condition: Stable rn Diagnosis - Flank pain rn Followup: rn - With: Private Physician - When: As needed - Reason: Recheck today's complaints, Re-evaluation by your physician Discharge Instructions: - Discharge Summary Sheet rn Forms: - Medication Reconciliation Form rn - Thank You Letter rn - Antibiotic financial internship - Prescription Opioid Use rn Prescriptions: - Medrol (Tyler) 4 mg Oral Tablets, Dose Pack - take 1 tablet by ORAL route as directed - follow package instructions; 1 rn packet; Refills: 0, Product Selection Permitted - Cyclobenzaprine 5 mg Oral Tablet - take 1 tablet by ORAL route 3 times per day As needed; 15 tablet; Refills: 0, rn Product Selection Permitted Signatures: Dispatcher [employer] EDMS Chris Soliz MD MD rn Gibson, Lacie RN RN lg3 Katalina Bob RN RN ld1 Corrections: (The following items were deleted from the chart) 20:36 20:34 Pelvis Complete+US.RAD.BRZ ordered. EDPA EDMS
--- NOTE | 2021-08-22 21:45 | ER ---
Nurse's Notes [facility] Name: Mayda Argueta Age: 30 yrs Sex: Female : 1990 Arrival Date: 08/22/2021 Time: 18:19 Bed 6 Private MD: Diagnosis: Flank pain Presentation: 08/22 18:41 Chief complaint: Patient states: R lower back pain X 5 days. Coronavirus screen: At ld1 this time, the client does not indicate any symptoms associated with coronavirus-19. Ebola Screen: No symptoms or risks identified at this time. Initial Sepsis Screen: Does the patient meet any 2 criteria? No. Patient's initial sepsis screen is negative. Does the patient have a suspected source of infection? No. Patient's initial sepsis screen is negative. Risk Assessment: Do you want to hurt yourself or someone else? Patient reports no desire to harm self or others. Onset of symptoms was August 22, 2021. 18:41 Method Of Arrival: Ambulatory ld1 18:41 Acuity: CATHY 3 ld1 Triage Assessment: 18:41 General: Appears in no apparent distress. comfortable, Behavior is calm, cooperative, ld1 appropriate for age. Pain: Complains of pain in right low back Pain does not radiate. Pain at worst was 9 out of 10 on a pain scale. Neuro: Level of Consciousness is awake, alert, obeys commands, Oriented to person, place, time, situation. Cardiovascular: Capillary refill < 3 seconds Patient's skin is warm and dry. Respiratory: Airway is patent Respiratory effort is even, unlabored. GI: Abdomen is round non-distended, Reports nausea. 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 - Social history:: Smoking status: Patient denies any tobacco usage or history of. Patient/guardian denies using alcohol. - Family history:: not pertinent. - Hospitalizations: : No recent hospitalization is reported. Screenin:14 Abuse screen: Denies threats or abuse. Denies injuries from another. Nutritional lg3 screening: No deficits noted. Tuberculosis screening: No symptoms or risk factors identified. Fall Risk None identified. Assessment: 19:14 General: Appears in no apparent distress. uncomfortable, Behavior is calm, cooperative. lg3 Pain: Complains of pain in right low back Pain currently is 7 out of 10 on a pain scale. Neuro: No deficits noted. Foster Agitation-Sedation Scale (RASS): 0 - Alert and Calm Level of Consciousness is awake, alert, obeys commands, Oriented to person, place, time, situation. Cardiovascular: No deficits noted. Denies chest pain, shortness of breath, Capillary refill < 3 seconds Clubbing of nail beds is absent JVD is absent Patient's skin is warm and dry. Respiratory: No deficits noted. Airway is patent Trachea midline Respiratory effort is even, unlabored, Respiratory pattern is regular, symmetrical. GI: No deficits noted. Abdomen is flat, non-distended, Bowel sounds present X 4 quads. Reports nausea. : Reports pain flank(s). EENT: No deficits noted. No signs and/or symptoms were reported regarding the EENT system. Derm: No deficits noted. No signs and/or symptoms reported regarding the dermatologic system. Skin is intact, is healthy with good turgor, Skin is dry, Skin is pink, warm \T\ dry. Musculoskeletal: No deficits noted. No signs and/or symptoms reported regarding the musculoskeletal system. Circulation, motion, and sensation intact. Range of motion: intact in all extremities. 22:04 Reassessment: Patient appears in no apparent distress at this time. Patient and/or jb4 family updated on plan of care and expected duration. Pain level reassessed. Patient is alert, oriented x 3, equal unlabored respirations, skin warm/dry/pink. Vital Signs: 18:41 BP 124 / 83; Pulse 61; Resp 18; Temp 98.2(O); Pulse Ox 97% on R/A; Weight 79.83 kg; ld1 Height 5 ft. 3 in. (160.02 cm); Pain 9/10; 22:04 BP 118 / 79; Pulse 64; Resp 17; Pulse Ox 98% on R/A; jb4 18:41 Body Mass Index 31.18 (79.83 kg, 160.02 cm) ld1 ED Course: 18:19 Patient arrived in ED. ja2 18:26 Sameer Newby PA is PHCP. cp 18:26 Jace Godinez MD is Attending Physician. cp 18:41 Triage completed. ld1 18:41 Arm band placed on right wrist. ld1 19:02 Attending Physician role handed off by Jace Godinez MD rn 19:02 Chris Soliz MD is Attending Physician. rn 19:12 Tanja Mckeon RN is Primary Nurse. lg3 19:14 Patient has correct armband on for positive identification. Placed in gown. Bed in low lg3 position. Call light in reach. Side rails up X 1. Client placed on continuous cardiac and pulse oximetry monitoring. NIBP monitoring applied. Door closed. Noise minimized. Warm blanket given. Family accompanied patient. 19:46 CBC with Diff Sent. lg3 19:46 CMP Sent. lg3 19:46 Lipase Sent. lg3 19:46 Urine --Ancillary (enter results) Sent. lg3 19:47 Urine Culture Sent. lg3 19:47 Urine Microscopic Only Sent. lg3 19:48 Inserted saline lock: 20 gauge in right antecubital area, using aseptic technique. lg3 Blood collected. 19:51 CT Stone Protocol In Process Unspecified. EDMS 21:24 Transvaginal Study Probe In Process Unspecified. EDMS 21:24 Pelvis Complete In Process Unspecified. EDMS 22:04 No provider procedures requiring assistance completed. IV discontinued, intact, jb4 bleeding controlled, No redness/swelling at site. Pressure dressing applied. Administered Medications: 19:55 Drug: Zofran (Ondansetron) 4 mg Route: IVP; Site: right antecubital; lg3 20:07 Follow up: Response: No adverse reaction lg3 19:55 Drug: morphine 4 mg Route: IVP; Infused Over: 4 mins; Site: right antecubital; lg3 20:07 Follow up: Response: No adverse reaction; RASS: Alert and Calm (0) lg3 19:55 Drug: Magnesium Sulfate 1 grams Route: IVPB; Infused Over: 1 hrs; Site: right lg3 antecubital; 20:06 Follow up: Response: No adverse reaction; IV Intake: 100ml lg3 Medication: 19:14 VIS not applicable for this client. lg3 Intake: 20:06 IV: 100ml; Total: 100ml. lg3 Outcome: 21:44 Discharge ordered by . rn 22:04 Discharged to home ambulatory. jb4 22:04 Condition: stable 22:04 Discharge instructions given to patient, family, Instructed on discharge instructions, follow up and referral plans. medication usage, Demonstrated understanding of instructions, follow-up care, medications, Prescriptions given X 2. 22:05 Patient left the ED. jb4 Signatures: Dispatcher [employer] EDMS Chris Soliz MD MD rn Sameer Newby PA PA cp Bryson, James RN RN jb4 Tanja Mckeon RN RN [email or web address] Katalina Bob RN RN ld1 Mago Quinonez Corrections: (The following items were deleted from the chart) 22:04 22:04 Reassessment: Patient appears in no apparent distress at this time. Patient jb4 and/or family updated on plan of care and expected duration. Pain level reassessed. Patient is alert, oriented x 3, equal unlabored respirations, skin warm/dry/pink. jb4
[2021-08-22 22:59] VITALS: TEMP 98.2
[2021-08-22 23:01] VITALS: BP 118/79; O2SAT 98
--- NOTE | 2021-08-25 13:25 | RAD REPORT ---
EXAM DESCRIPTION: US - Pelvis Complete - 08/22/2021 9:22 pm CLINICAL HISTORY: Pelvic pain COMPARISON: CT August 22, 2021 FINDINGS: The uterus measures 9 x 3 x 6 cm. A fibroid is not seen. The endometrial stripe measures 5 millimeters The ovaries are normal in size and echotexture. Normal blood flow The right and left adnexa unremarkable No significant free fluid is seen. IMPRESSION: Unremarkable pelvic ultrasound
== END 2021-08-22 22:05 | disposition home or self-care (01) ==
LOC: ER 18:09
DX: R10.9 Unspecified abdominal pain (principal); F32.A Depression, unspecified; F41.9 Anxiety disorder, unspecified; Z87.442 Personal history of urinary calculi
CPT/HCPCS: 87088; 85025; 87086; 36415; 81025; 83690; 80053; 76377; 74176; 76856; 76830; 96375; 96374; 99284; J3475; J2405; 81003; 81015

== ENCOUNTER 2022-08-16 22:22 | Emergency (ER) | payer OTHER ==
--- OUTSIDE RECORDS SUMMARY | 2022-08-16 22:27 | XMS REPORT | Continuity of Care Document ---
:1990 Author Organization [facility] t Address [address] [facility] [address] [place] [address] Care Team Providers Name Role Phone ROGERIO BARCENAS Primary Care Physician Unavailable JUANA ARMSTRONG Attending Clinician Unavailable Patti BLOCK, Juana [place] Attending Clinician [phone] JANIA Attending Clinician Unavailable NUZHAT MARTIN Attending Clinician Unavailable Doctor Unassigned, [place] Attending Clinician Unavailable TATIANA CUEVAS Attending Clinician Unavailable Narcisa BLOCK, Keily Pro Attending Clinician JUAN R MATHEWS Attending Clinician Unavailable CORTES REGALADO Attending Clinician Unavailable Cortes Mohamud Attending Clinician Lab, Ang - Db Attending Clinician Unavailable SONG BARKSDALE Attending Clinician Unavailable Song Barks[place] MD Attending Clinician [facility] Attending Clinician Unavailable [place] Gilda SANCHEZ Attending Clinician LUIZGILDA QUEZADA Attending Clinician Unavailable Meliza Wells Attending Clinician Yury Mahoney MD Attending Clinician YURY MAHONEY Attending Clinician Unavailable LUCIA BALDWIN Attending Clinician Unavailable Denny PHD, Lucia Attending Clinician Slick Nicholas DO Haroon Attending Clinician URIASPAUL Attending Clinician Unavailable Draw, [facility] Attending Clinician Unavailable José Nicholas MD Attending Clinician JOSÉ NICHOLAS Attending Clinician Unavailable JOSÉ NICHOLAS Attending Clinician Unavailable 1, [facility] Attending Clinician Unavailable JOSE LUIS LUCY Attending Clinician Unavailable Room, [facility] Attending Clinician Unavailable Harsh BLOCK, Geri Robbins Attending Clinician Timmy Kwon MD Attending Clinician KEILY BREWSTER Attending Clinician Unavailable Pob, [facility] Main Attending Clinician Unavailable Glenny Rosa MD Attending Clinician Ultrasound, [facility] Attending Clinician Unavailable GERI OVALLE Attending Clinician Unavailable 2, [facility] Attending Clinician Unavailable Ultrasound, [facility] Attending Clinician Unavailable Ann Esparza MD Attending Clinician ANN ESPARZA Attending Clinician Unavailable JUANA ARMSTRONG Admitting Clinician Unavailable JANIA Admitting Clinician Unavailable José Nicholas MD Admitting Clinician JOSÉ NICHOLAS Admitting Clinician Unavailable Payers Payer Name Policy Type Policy Number Effective Date Expiration Date S elizabeth [facility] [id number] 2019 00:00:00 [facility] [id number] 2020 00:00:00 [facility] [id number] 2020 [facility] 00:00:00 SERVICES - SELECT (PPO) Problems Condition Condition Condition Status Onset Resolution Last Treating Co mments Source Name Details Category Date Date Treatment Clinician Date Generalize Generalize Problem Active M atag[place] d anxiety d Anxiety 8-29 da disorder Disorder 00:00: Ep[facility] p 00 al Health Outreac h Program Moderately 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 Error Cholestasi Cholestasi Disease Active U nivers s of s of 7-07 ity of [place] Medical Branch 37 weeks 37 weeks Disease Active Unive rs gestation gestation 7-06 ity of of of 00:00: [place] 00 [facility] Branch Obesity Obesity Disease Active 2018-03 Univers (BMI (BMI 1-22 ity of 30-39.9) 30-39.9) 00:00: [place] 00 Medical Branch Disease Active U nivers depression depression 4-04 it y of 00:00: [place] [address] Medical Branch Calculus Calculus Disease Active 2017-03 Overview: Un vladimir of of 0-05 Formattin ity of gallbladde gallbladde 00:00: g of this [place] r without r without 00 note [facility] cholecysti cholecysti might be Branch tis tis different without without from the obstructio obstructio original. n n Added automatic ally from request for surgery [id number] Cholelithi Cholelithi Disease Active 2017-03 U nivers asis asis 0-02 ity of 00:00: [place] 00 [facility] Branch Cholestasi Cholestasi Disease Active U [...] , [place] ante[place] antepartum 00 [facility] High-risk High-risk Disease Active Uni vers 2-23 ity of in third in third 00:00: [place] trimester trimester 00 [facility] Maternal Maternal Disease Active Unive rs condyloma condyloma 1-23 ity of acuminatum acuminatum [place] affecting affecting 00 [facility] , , Br anch antepartum antepartum Allergies, Adverse Reactions, Alerts Allergy Allergy Status Severity Reaction(s) Onset Inactive Treating Comm ents Source Name Type Date Date Clinician NO KNOWN Drug Active Univers ALLERGIE Class ity of S [facility] [place] [facility] Family History Family Member Diagnosis Comments Start Date Stop Date Source Natural father No Significant Univer sity of Medical Problems [facility] Maternal Diabetes University of grandmother [facility] [place] [facility] Natural mother No Significant Univer sity of Medical Problems [facility] Family member Arthritis [facility] Family member Asthma [facility] Family member defects Universi ty [facility] Family member Breast Cancer Universi ty [facility] Family member Cancer [facility] Family member Colon Cancer Universit [facility] Family member Depression [facility] Family member Genetic [facility] Family member Heart [facility] Family member High cholesterol Unive rsity [facility] Family member Hypertension Universit [facility] Family member Mental retardation Uni versity [facility] Family member Neurological [facility] Family member Osteoporosis Universit [facility] Family member Other - see [facility] Family member Ovarian Cancer Univers ity [facility] Family member Psychiatry [facility] Family member Uterine Cancer Univers ity [facility] Social History Social Habit Start Date Stop Date Quantity Comments Source Exposure to 2022-05-29 2022-06-08 Not sure [facility] SARS-CoV-2 00:00:00 11:57:00 [facility] (event) [place] Alcohol intake 2022-03-11 2022-03-11 [facility]drinker [facility] 00:[facility]:00 00:00:00 (finding) [facility] [place] [facility] Tobacco use and 2022-03-11 2022-03-11 Smokeless tobacco Un iversity of exposure 00:00:00 00:00:00 non-user [facility] [place] [facility] Sex Ass[birth year] Universit y of 00:00:00 00:00:00 [facility] [place] [facility] Smoking Status Start Date Stop Date Source Never smoked tobacco [facility] Medications Ordered Filled Start Stop Current Ordering Indication Dosage Frequency Signature Comments Components Source Medication Medication Date Date Medication? Clinician (SIG) Name Name ketorolac 30mg 30 mg, Unive rs (TORADOL) 06-08 Slow IV ity of injection 18:30: 17:48 Push, [place] 30 mg 00 :00 ONCE, 1 Medical dose, On Branch Tue06/08/22 at 1330, Routine ondansetron 2022-0 2022- No 4mg 4 mg, Slow Univers (ZOFRAN 06-08 IV Push, ity of (PF)) 17:15: 17:03 ONCE, 1 [place] injection 4 00 :00 dose, On Medi gissell mg Tue Branch 06/08/22 at 1215, PAZ morpHINE (4 2022- No 4mg 4 mg, Slow Univers mg/mL) 06-0814 IV Push, ity of injection 4 17:15: 17:06 ONCE, 1 [place] mg 00 :00 dose, On Medical Tue Branch 06/08/22 at 1215, STAT ondansetron 2022-0 Yes [id number] 4mg Take 1 Univers 4 mg 3-14 tablet by ity of disintegrat 00:00: mouth [place] ing tablet 00 every 8 Medica l (eight) Branch hours as needed for Nausea and Vomiting (N/V). tamsulosin 2022-0 Yes [id number] .4mg Take 1 Univers 0.4 mg 24 3-14 capsule by ity of hr capsule 00:00: mouth at [place] 00 bedtime. Medical Branch ketorolac 2022-0 Yes [id number] 10mg Take 1 Un vladimir 10 mg 3-14 tablet by ity of tablet 00:00: mouth [place] 00 every 6 Medical (six) Branch hours as needed for Pain (scale 4-6). ondansetron 2022-0 2022- No [id number] 4mg Take 1 Univers 4 mg 3-14 -14 tablet by ity of disintegrat 00:00: 00:00 [place] tablet 00 :00 every 8 Medica l (eight) Branch hours as needed for Nausea and Vomiting (N/V). tamsulosin 2022-0 2022- No [id number] .4mg Take 1 Univers 0.4 mg 24 3-14 -14 capsule by ity of hr capsule 00:00: 00:00 [place] :00 bedtime. Medical Branch ketorolac 2022-0 3- No [id number] 10mg Take 1 U nivers 10 mg 3-14 03-14 tablet by ity of tablet 00:00: 00:00 mouth [place] 00 :00 every 6 Medical (six) Branch hours as needed for Pain (scale 4-6). ketorolac 2022-0 2022- No [id number] 10mg Take 1 U nivers 10 mg 3-14 03-14 tablet by ity of tablet 00:00: 00:00 mouth [place] 00 :00 every 6 Medical (six) Branch hours as needed for Pain (scale 4-6). ketorolac 2022-0 2022- No [id number] 10mg Take 1 U nivers 10 mg 3-14 03-14 tablet by ity of tablet 00:00: 00:00 mouth [place] 00 :00 every 6 Medical (six) Branch hours as needed for Pain (scale 4-6). ketorolac 2022-0 2022- No [id number] 10mg Take 1 U nivers 10 mg 3-14 03-14 tablet by ity of tablet 00:00: 00:00 mouth [place] 00 :00 every 6 Medical (six) Branch hours as needed for Pain (scale 4-6). buPROPion 0 Yes [id number] 150mg Take 1 Univers XL 150 mg 8-31 tablet by ity o f 24 hr 00:00: mouth in [place] tablet 00 the Medical morning. Branch busPIRone 5 Yes [id number] 5mg Take 1 Univers mg tablet 8-31 tablet by ity o f 00:00: mouth in [place] 00 the Medical morning Branch and 1 tablet in the evening. traZODone 0 Yes [id number] 75mg Take 1.5 Univers 50 mg 8-31 tablets by ity of tablet 00:00: mouth at [place] 00 bedtime. Medical Branch buPROPion 2021-0 Yes [id number] 150mg Take 1 Univers XL 150 mg 8-31 tablet by ity o f 24 hr 00:00: mouth in [place] tablet 00 the Medical morning. Branch busPIRone 5 0 Yes [id number] 5mg Take 1 Univers mg tablet 8-31 tablet by ity o f 00:00: mouth in [place] 00 the Medical morning Branch and 1 tablet in the evening. traZODone 2021-0 Yes [id number] 75mg Take 1.5 Univers 50 mg 8-31 tablets by ity of tablet 00:00: mouth at [place] 00 bedtime. Medical Branch buPROPion 202 No [id number] 150mg Take 1 Univers XL 150 mg 8-31 12-15 tablet by ity of 24 hr 00:00: 00:00 mouth in [place] tablet 00 :00 the Medical morning. Branch busPIRone 5 No [id number] 5mg Take 1 Univers mg tablet 8-31 12-15 tablet by ity of 00:00: 00:00 mouth in [place] 00 :00 the Medical morning Branch and 1 tablet in the evening. traZODone No [id number] 75mg Take 1.5 Univers 50 mg 8-31 12-15 tablets by ity of tablet 00:00: 00:00 mouth at [place] 00 :00 bedtime. Medical Branch buPROPion No [id number] 150mg Take 1 Univers XL 150 mg 8-31 12-15 tablet by ity of 24 hr 00:00: 00:00 mouth in [place] tablet 00 :00 the Medical morning. Branch busPIRone 5 No [id number] 5mg Take 1 Univers mg tablet 8-31 12-15 tablet by ity of 00:00: 00:00 mouth in [place] 00 :00 the Medical morning Branch and 1 tablet in the evening. traZODone No [id number] 75mg Take 1.5 Univers 50 mg 8-31 12-15 tablets by ity of tablet 00:00: 00:00 mouth at [place] 00 :00 bedtime. Medical Branch buPROPion No [id number] 150mg Take 1 Univers XL 150 mg 8-31 12-15 tablet by ity of 24 hr 00:00: 00:00 mouth in [place] tablet 00 :00 the Medical morning. Branch busPIRone 5 No [id number] 5mg Take 1 Univers mg tablet 8-31 12-15 tablet by ity of 00:00: 00:00 mouth in [place] 00 :00 the Medical morning Branch and 1 tablet in the evening. traZODone No [id number] 75mg Take 1.5 Univers 50 mg 8-31 12-15 tablets by ity of tablet 00:00: 00:00 mouth at [place] 00 :00 bedtime. Medical Branch busPIRone 5 2021- No 5mg Take 1 Uni vers mg tablet 09-01 tablet by ity of 00:00: 00:00 mouth 2 [place] 00 00 (two) Medical times Branch daily. buPROPion 2021- No [id number] 150mg Take 1 Univers XL 150 mg 07-23 tablet by ity of 24 hr 00:00: 00:00 mouth [place] tablet 00 :00 daily. Medical Branch cephALEXin 2021- No [id number] 500mg Take 1 Univers 500 mg 09-11 capsule by ity of capsule 00:00: 00:00 mouth 4 [place] 00 :00 (four) Medical times Branch daily. miSOPROStoL 2019-03 Yes [id number] 1 po the Univers 200 mcg 2-16 evening ity of tablet 00:00: prior to 00 the Medical procedure Branch miSOPROStoL 2019-03 Yes [id number] 1 po the Univers 200 mcg 2-16 evening ity of tablet 00:00: prior to [place] 00 the Medical procedure Branch miSOPROStoL 2019-03- No [id number] 1 po the Univers 200 mcg 2-16 12-15 evening ity of tablet 00:00: 00:00 prior to [place] 00 :00 the Medical procedure Branch miSOPROStoL 2019-03- No [id number] 1 po the Univers 200 mcg 2-16 12-15 evening ity of tablet 00:00: 00:00 prior to [place] 00 :00 the Medical procedure Branch miSOPROStoL 2019-03- No [id number] 1 po the Univers 200 mcg 2-16 12-15 evening ity of tablet 00:00: 00:00 prior to [place] 00 :00 the Medical procedure Branch PNV,calcium 2019-03 Yes [id number] 1{tbl} Take 1 Univers 72-iron,car 0-22 tablet by ity of b-folic 00:00: mouth [place] ( 00 daily. Medical PLUS) 29 mg Branch iron- 1 mg Tab PNV,calcium 2019-03 Yes [id number] 1{tbl} Take 1 Univers 72-iron,car 0-22 tablet by ity of b-folic 00:00: mouth [place] ( 00 daily. Medical PLUS) 29 mg Branch iron- 1 mg Tab PNV,calcium 2019-03 No [id number] 1{tbl} Take 1 Univers 72-iron,car 0-22 12-15 tablet by it y of b-folic 00:00: 00:00 mouth [place] ( 00 :00 daily. Medical PLUS) 29 mg Branch iron- 1 mg Tab PNV,calcium 2019-03 No [id number] 1{tbl} Take 1 Univers 72-iron,car 0-22 12-15 tablet by it y of b-folic 00:00: 00:00 mouth [place] ( 00 :00 daily. Medical PLUS) 29 mg Branch iron- 1 mg Tab PNV,calcium 2019-03 No [id number] 1{tbl} Take 1 Univers 72-iron,car 0-22 12-15 tablet by it y of b-folic 00:00: 00:00 mouth [place] ( 00 :00 daily. Medical PLUS) 29 mg Branch iron- 1 mg Tab docusate Yes [id number] 240mg Take 1 U nivers calcium 240 7-09 capsule by it y of mg capsule 00:00: mouth [place] 00 daily as Medical needed for Branch Constipati on. docusate Yes [id number] 240mg Take 1 U nivers calcium 240 7-09 capsule by it y of mg capsule 00:00: mouth [place] 00 daily as Medical needed for Branch Constipati on. docusate 2021- No [id number] 240mg Take 1 Univers calcium 240 7- 12-15 capsule by i ty of mg capsule 00:00: 00:00 mouth once [place] 00 :00 daily as Medical needed for Branch Constipati on. docusate 2021- No [id number] 240mg Take 1 Univers calcium 240 7-09 12-15 capsule by i ty of mg capsule 00:00: 00:00 mouth once [place] 00 :00 daily as Medical needed for Branch Constipati on. docusate 2021- No [id number] 240mg Take 1 Univers calcium 240 7-09 12-15 capsule by i ty of mg capsule 00:00: 00:00 mouth once [place] 00 :00 daily as Medical needed for Branch Constipati on. venlafaxine venlafaxine No venlafaxin [place] 37.5 mg 37.5 mg e 37.5 mg da tablet TAKE tablet TAKE tablet [facility] 1 TABLET BY 1 TABLET BY TAKE 1 al MOUTH ONCE MOUTH ONCE TABLET BY Health DAILY (STOP DAILY (STOP MOUTH ONCE Outreac LEXAPRO) LEXAPRO) DAILY h (STOP Program LEXAPRO) venlafaxine venlafaxine No venlafaxin [place] 75 mg 75 mg e 75 mg da tablet TAKE tablet TAKE tablet [facility] 1 TABLET BY 1 TABLET BY TAKE 1 al MOUTH ONCE MOUTH ONCE TABLET BY Health DAILY DAILY MOUTH ONCE Outreac (INCREASE (INCREASE DAILY h IN DOSAGE) IN DOSAGE) (INCREASE Program IN DOSAGE) bupropion bupropion No bupropion [place] HCl XL 150 HCl XL 150 HCl XL 150 da mg 24 hr mg 24 hr mg 24 hr Epi scop tablet, tablet, tablet, al extended extended extended Hea lth release release release Outrea c TAKE 1 TAKE 1 TAKE 1 h TABLET BY TABLET BY TABLET BY Program MOUTH DAILY MOUTH DAILY MOUTH DAILY buspirone buspirone No buspirone [place] 10 mg 10 mg 10 mg da tablet TAKE tablet TAKE tablet [facility] 1 TABLET BY 1 TABLET BY TAKE 1 al MOUTH TWICE MOUTH TWICE TABLET BY Health DAILY DAILY MOUTH Outreac TWICE h DAILY Program buspirone 5 buspirone 5 No buspirone [place] mg tablet mg tablet 5 mg da TAKE 1 TAKE 1 tablet [facility] TABLET BY TABLET BY TAKE 1 al MOUTH IN MOUTH IN TABLET BY He alth THE MORNING THE MORNING MOUTH IN Outreac AND IN THE AND IN THE THE h EVENING EVENING MORNING Progra m AND IN THE EVENING cetirizine cetirizine No cetirizine [place] 10 mg 10 mg 10 mg da tablet TAKE tablet TAKE tablet [facility] 1 TABLET BY 1 TABLET BY TAKE 1 al MOUTH EVERY MOUTH EVERY TABLET BY Health DAY DAY MOUTH Outreac EVERY DAY h Program cyclobenzap cyclobenzap No cyclobenza [place] rine 5 mg rine 5 mg kelly 5 mg da tablet TAKE tablet TAKE tablet [facility] 1 TABLET BY 1 TABLET BY TAKE 1 al MOUTH THREE MOUTH THREE TABLET BY Health TIMES DAILY TIMES DAILY MOUTH Outreac NEEDED NEEDED THREE h FOR MUSCLE FOR MUSCLE TIMES Pr ogram SPASMS SPASMS DAILY NEEDED FOR MUSCLE SPASMS escitalopra escitalopra No escitalopr [place] m 5 mg m 5 mg am 5 mg da tablet TAKE tablet TAKE tablet [facility] 1 TABLET BY 1 TABLET BY TAKE 1 al MOUTH EVERY MOUTH EVERY TABLET BY Health DAY AT DAY AT MOUTH Outreac BEDTIME BEDTIME EVERY DAY h AT BEDTIME Program hydroxyzine hydroxyzine No hydroxyzin [place] HCl 25 mg HCl 25 mg e HCl 25 d a tablet TAKE tablet TAKE mg tablet [facility] 1 TABLET BY 1 TABLET BY TAKE 1 al MOUTH EVERY MOUTH EVERY TABLET BY Health 8 HOURS 8 HOURS MOUTH Ou treac NEEDED FOR NEEDED FOR EVERY 8 h ANXIETY ANXIETY HOURS Progr am NEEDED FOR ANXIETY methylpredn methylpredn No methylpred [place] isolone 4 isolone 4 nisolone 4 da mg tablets mg tablets mg tablets [facility] in a dose in a dose in a dose al pack FOLLOW pack FOLLOW pack H ealth PACKAGE PACKAGE FOLLOW Outreac DIRECTIONS DIRECTIONS PACKAGE h DIRECTIONS Program trazodone trazodone No trazodone [place] 50 mg 50 mg 50 mg da tablet TAKE tablet TAKE tablet [facility] 1 AND 1/2 1 AND /2 TAKE 1 AND al TABLETS BY TABLETS BY 2 Hea lth MOUTH AT MOUTH AT TABLETS BY [facility] BEDTIME BEDTIME MOUTH AT h BEDTIME Program venlafaxine venlafaxine No venlafaxin [place] 37.5 mg 37.5 mg e 37.5 mg da tablet TAKE tablet TAKE tablet [facility] 1 TABLET BY 1 TABLET BY TAKE 1 al MOUTH ONCE MOUTH ONCE TABLET BY Health DAILY (STOP DAILY (STOP MOUTH ONCE Outreac LEXAPRO) LEXAPRO) DAILY h (STOP Program LEXAPRO) venlafaxine venlafaxine No venlafaxin [place] 75 mg 75 mg e 75 mg da tablet TAKE tablet TAKE tablet [facility] 1 TABLET BY 1 TABLET BY TAKE 1 al MOUTH ONCE MOUTH ONCE TABLET BY Health DAILY DAILY MOUTH ONCE Outreac (INCREASE (INCREASE DAILY h IN DOSAGE) IN DOSAGE) (INCREASE Program IN DOSAGE) bupropion bupropion No bupropion [place] HCl XL 150 HCl XL 150 HCl XL 150 da mg 24 hr mg 24 hr mg 24 hr Epi scop tablet, tablet, tablet, al extended extended extended Hea lth release release release Outrea c TAKE 1 TAKE 1 TAKE 1 h TABLET BY TABLET BY TABLET BY Program MOUTH DAILY MOUTH DAILY MOUTH DAILY buspirone buspirone No buspirone [place] 10 mg 10 mg 10 mg da tablet TAKE tablet TAKE tablet [facility] 1 TABLET BY 1 TABLET BY TAKE 1 al MOUTH TWICE MOUTH TWICE TABLET BY Health DAILY DAILY MOUTH Outreac TWICE h DAILY Program buspirone 5 buspirone 5 No buspirone [place] mg tablet mg tablet 5 mg da TAKE 1 TAKE 1 tablet [facility] TABLET BY TABLET BY TAKE 1 al MOUTH IN MOUTH IN TABLET BY He alth THE MORNING THE MORNING MOUTH IN Outreac AND IN THE AND IN THE THE h EVENING EVENING MORNING Progra m AND IN THE EVENING cetirizine cetirizine No cetirizine [place] 10 mg 10 mg 10 mg da tablet TAKE tablet TAKE tablet [facility] 1 TABLET BY 1 TABLET BY TAKE 1 al MOUTH EVERY MOUTH EVERY TABLET BY Health DAY DAY MOUTH Outreac EVERY DAY h Program cyclobenzap cyclobenzap No cyclobenza [place] rine 5 mg rine 5 mg kelly 5 mg da tablet TAKE tablet TAKE tablet [facility] 1 TABLET BY 1 TABLET BY TAKE 1 al MOUTH THREE MOUTH THREE TABLET BY Health TIMES DAILY TIMES DAILY MOUTH Outreac NEEDED NEEDED THREE h FOR MUSCLE FOR MUSCLE TIMES Pr ogram SPASMS SPASMS DAILY NEEDED FOR MUSCLE SPASMS escitalopra escitalopra No escitalopr [place] m 5 mg m 5 mg am 5 mg da tablet TAKE tablet TAKE tablet [facility] 1 TABLET BY 1 TABLET BY TAKE 1 al MOUTH EVERY MOUTH EVERY TABLET BY Health DAY AT DAY AT MOUTH Outreac BEDTIME BEDTIME EVERY DAY h AT BEDTIME Program hydroxyzine hydroxyzine No hydroxyzin [place] HCl 25 mg HCl 25 mg e HCl 25 d a tablet TAKE tablet TAKE mg tablet [facility] 1 TABLET BY 1 TABLET BY TAKE 1 al MOUTH EVERY MOUTH EVERY TABLET BY Health 8 HOURS 8 HOURS MOUTH Ou treac NEEDED FOR NEEDED FOR EVERY 8 h ANXIETY ANXIETY HOURS Progr am NEEDED FOR ANXIETY methylpredn methylpredn No methylpred [place] isolone 4 isolone 4 nisolone 4 da mg tablets mg tablets mg tablets [facility] in a dose in a dose in a dose al pack FOLLOW pack FOLLOW pack H ealth PACKAGE PACKAGE FOLLOW Outreac DIRECTIONS DIRECTIONS PACKAGE h DIRECTIONS Program trazodone trazodone No trazodone [place] 50 mg 50 mg 50 mg da tablet TAKE tablet TAKE tablet [facility] 1 AND 1/2 1 AND 1/2 TAKE 1 AND al TABLETS BY TABLETS BY /2 [facility] MOUTH AT MOUTH AT TABLETS BY [facility] BEDTIME BEDTIME MOUTH AT h BEDTIME Program Immunizations Ordered Filled Immunization Date Status Comments [facility] e Immunization Name Name TDAP (ADACEL) 2019-08-09 Completed University of VACCINE 00:00:00 [facility] [place] [facility] TDAP (ADACEL) 2019-08-09 Completed University of VACCINE 00:00:00 [facility] [place] [facility] TDAP (ADACEL) 2019-08-09 Completed University of VACCINE 00:00:00 [facility] [place] [facility] TDAP (ADACEL) 2019-08-09 Completed University of VACCINE 00:00:00 [facility] [place] [facility] TDAP (ADACEL) 2019-08-09 Completed University of VACCINE 00:00:00 [facility] [place] [facility] TDAP (ADACEL) 2019-08-09 Completed University of VACCINE 00:00:00 [facility] [place] [facility] Influenza Virus 2019-03-16 Completed Universit y of Vaccine Quad .5 mL 00:00:00 [place] [facility] 6+ MO Branch Influenza Virus 2019-03-16 Completed Universit y of Vaccine Quad .5 mL 00:00:00 [place] [facility] 6+ MO Branch Influenza Virus 2019-03-16 Completed Universit y of Vaccine Quad .5 mL 00:00:00 [place] [facility] 6+ MO Branch Influenza Virus 2019-03-16 Completed Universit y of Vaccine Quad .5 mL 00:00:00 [place] [facility] IM 6+ MO Branch Influenza Virus 2019-03-16 Completed Universit y of Vaccine Quad .5 mL 00:00:00 [facility] 6+ MO Branch Influenza Virus 2019-03-16 Completed Universit y of Vaccine Quad .5 mL 00:00:00 [place] [facility] IM 6+ MO Branch Influenza Virus 2018-01-06 Completed Universit y of Vaccine [place] .5 mL 00:00:00 [place] [facility] IM 6+ MO Branch MMR 2018-01-06 Completed University of 00:00:00 [facility] [place] [facility] Influenza Virus 2018-01-06 Completed Universit y of Vaccine Quad .5 mL 00:00:00 [place] [facility] IM 6+ MO Branch MMR 2018-01-06 Completed University of 00:00:00 [facility] [place] [facility] Influenza Virus 2018-01-06 Completed Universit y of Vaccine Quad .5 mL 00:00:00 [place] [facility] IM 6+ MO Branch MMR 2018-01-06 Completed University of 00:00:00 [facility] [place] [facility] Influenza Virus 2018-01-06 Completed Universit y of Vaccine Quad .5 mL 00:00:00 [place] [facility] IM 6+ MO Branch MMR 2018-01-06 Completed University of 00:00:00 [facility] [place] [facility] Influenza Virus 2018-01-06 Completed Universit y of Vaccine Quad .5 mL 00:00:00 [facility] IM 6+ MO Branch MMR 2018-01-06 Completed University of 00:00:00 [facility] [place] [facility] Influenza Virus 2018-01-06 Completed Universit y of Vaccine Quad .5 mL 00:00:00 [place] [facility] IM 6+ MO Branch MMR 2018-01-06 Completed University of 00:00:00 [facility] [place] [facility] TDAP 2017-10-11 Completed University of 00:00:00 [facility] TDAP 2017-10-11 Completed University of 00:00:00 [facility] TDAP 2017-10-11 Completed University of 00:00:00 [facility] TDAP 2017-10-11 Completed University of 00:00:00 [facility] TDAP 2017-10-11 Completed University of 00:00:00 [facility] TDAP 2017-10-11 Completed University of 00:00:00 [facility] Vital Signs Vital Name Observation Time Observation Value Comments Source Systolic blood 2022-06-08 20:00:00 124 mm[Hg] Univer sity of pressure [facility] Diastolic blood 2022-06-08 20:00:00 66 mm[Hg] Unive rsity of [facility] Heart rate 2022-06-08 20:00:00 74 /min [facility] Respiratory rate 2022-06-08 20:00:00 21 /min [facility] Oxygen saturation in 2022-06-08 20:00:00 97 /min [facility] Arterial blood by [facility] Pulse oximetry Branch Body temperature 2022-06-08 16:35:00 36.61 Celia [facility] Body weight 2022-06-08 16:35:00 80.74 kg [facility] BMI 2022-06-08 16:35:00 31.53 kg/m2 [facility] Systolic blood 2022-03-11 22:01:00 125 mm[Hg] Univer sity of pressure [facility] Diastolic blood 2022-03-11 22:01:00 84 mm[Hg] Unive rsity of [facility] Heart rate 2022-03-11 22:00:00 97 /min [facility] Body temperature 2022-03-11 22:00:00 36.94 Celia [facility] [place] Body height 2022-03-11 22:00:00 160 cm [facility] [place] [facility] [place] Body weight 2022-03-11 22:00:00 79.833 kg [facility] [place] [facility] [place] BMI 2022-03-11 22:00:00 31.18 kg/m2 Universi ty of [facility] Oxygen saturation in 2022-03-11 22:00:00 99 /min University of Arterial blood by [facility] Pulse oximetry Branch Systolic blood 2021-03-27 20:49:00 122 mm[facility]Hg] [facility] Diastolic blood 2021-03-27 20:49:00 80 mm[Hg] [facility] Heart rate 2021-03-27 20:49:00 69 /min Universi ty of [facility] Body temperature 2021-03-27 20:49:00 37.06 Celia [facility] Body height 2021-03-27 20:49:00 160 cm [facility] [place] [facility] [place] Body weight 2021-03-27 20:49:00 80.695 kg Universi ty [facility] [place] BMI 2021-03-27 20:49:00 31.51 kg/m2 Universi ty [facility] Oxygen saturation in 2021-03-27 20:49:00 98 /min University of Arterial blood by [facility] Pulse oximetry Branch Respiratory rate 2021-02-13 13:41:00 18 /min [facility] Procedures Procedure Date / Time Performing Clinician Source Performed CT ABDOMEN PELVIS WO 2022-06-08 17:31:00 [facility] POCT TEST 2022-06-08 16:49:00 Juana Armstrong [facility] LIPASE 2022-06-08 16:47:00 Juana Armstrong [facility] COMP. METABOLIC PANEL 2022-06-08 16:47:00 Juana Armstrong [facility] ([id number]) [facility] CBC WITH DIFF 2022-06-08 16:47:00 Juana Armstrong [facility] URINALYSIS 2022-06-08 16:47:00 Juana Armstrong [facility] ASSIGNMENT OF BENEFITS 2022-03-11 21:53:19 Doctor Unassigned, No University [facility] Name [facility] EXTERNAL PROVIDER 2021-09-10 05:01:00 Doctor Unassigned, No [facility] EXTERNAL PROVIDER 2021-09-08 05:01:00 Doctor Unassigned, No [facility] Name [facility] EXTERNAL PROVIDER 2021-09-07 05:01:00 Doctor Unassigned, No [facility] Name [facility] Caesarean Section [facility] Cosmetic Surgery [facility] Plan of Care Planned Activity Planned Date Details Comments Source Instructions [facility] opal Health Outreach Program Encounters Start End Encounter Admission Attending Care Care Encounter Source Date/Time Date/Time Type Type Clinicians Facility Department ID 2021-01-23 Emergency [facility] [id number] Univers 01:47:58 ity [facility] 2022-06-08 2022-06-08 Emergency X AUFDERHEIDE [facility] ERT [id number] Univers 11:36:00 16:02:00 , JUANA johnson [facility] 2022-06-08 2022-06-08 Emergency Aufderide [facility] 1.2.840.114 [id number] Univers 11:36:00 16:02:00 , Juana ESPINOZA 350.1.13.10 i ty Padmini HE 4.2.7.2.686 [facility] [phone] [facility] 084 Branch 2022-05-25 2022-05-25 Outpatient [facility] 120 [id number] [place] 00:00:00 00:00:00 N 32129 [facility] 2022-04-01 2022-04-01 Outpatient [facility] 120 [id number] [place] 00:00:00 00:00:00 N 65386 [facility] 2022-03-11 2022-03-11 Outpatient R VERONICA, [facility] [id number] Univers 16:00:00 16:30:15 NUZHAT itjenise [facility] 2022-03-11 2022-03-11 Office Veronica [facility] 1.2.840.114 [id number] Univers 16:00:00 16:30:15 Visit [facility] 350.1.13.10 ity of [place] 4.2.7.2.686 Arvin as CORA?BLEA [phone] [address] MEDICAL OFFICE [facility] 2022-03-11 2022-03-11 Orders Doctor TREMAYNE 1.2.840.114 [id number] Univers 00:00:00 00:00:00 Only Unassigned, SUZETTE 350.1.13.[address] [facility] 4.2.7.2.686 Arvin as [phone] [address] 2022-02-24 2022-02-24 [facility] 120 [id number] [place] 00:00:00 00:00:00 N 11091 [facility] 2022-01-20 2022-01-20 Outpatient [facility] 120 [id number] [place] 00:00:00 00:00:00 N 02134 [facility] 2021-12-22 2021-12-22 [facility] 120 [id number] [place] 00:00:00 00:00:00 N 72878 [facility] 2021-12-15 2021-12-15 Outpatient [facility] 120 [id number] [place] 00:00:00 00:00:00 N 73105 [facility] 2021-12-15 2021-12-15 Denisa KYDAMI [place] - [id number] Elle sierragohermes 00:00:00 00:00:00 Rosalio leal, DOG TRAINER: Sabianism Episco p 1700 DAMI - KYDAMI Doyle [facility] [address] Brooks porras , Ph. ([phone]) --20072021-12-11 2021-12-11 Outpatient Hermes CUEVAS [facility] [id number] Univers 08:30:00 08:30:00 TATIANA johnson [facility] 2021-12-08 2021-12-08 Outpatient [facility] 120 [id number] [place] 00:00:00 00:00:00 N 21302 [facility] 2021-12-08 2021-12-08 Denisa ALEJANDRINA [place] - [id number] M atagor 00:00:00 00:00:00 Rosalio leal, DOG TRAINER: Sabianism Episco p 1700 DAMI Doyle [facility] [address] Brooks porras , Ph. ([phone]) --20072021-12-07 2021-12-07 Outpatient [facility] 120 [id number] [place] 00:00:00 00:00:00 N 17285 [facility] 2021-12-03 2021-12-03 Outpatient [facility] 120 [id number] [place] 00:00:00 00:00:00 N 61981 [facility] 2021-12-02 2021-12-02 Outpatient [facility] 120 [id number] [place] 00:00:00 00:00:00 N 80377 [facility] 2021-12-01 2021-12-01 Outpatient [facility] 120 [id number] [place] 00:00:00 00:00:00 N 88127 [facility] 2021-12-01 2021-12-01 Denisa MEDAMI [place] - [id number] M atagor 00:00:00 00:00:00 Rosalio leal, DOG TRAINER: Sabianism Ep[facility] [address] [place] [address] Brooks porras , Ph. ([phone]) --20072021-11-27 2021-11-27 [facility] [id number] [place] 00:00:00 00:00:00 N 99387 [facility] 2021-11-25 2021-11-25 [facility] 120 [id number] [place] 00:00:00 00:00:00 N 40635 [facility] 2021-11-24 2021-11-24 [facility] 120 [id number] [place] 00:00:00 00:00:00 N 87769 [facility] 2021-11-23 2021-11-23 [facility] 120 [id number] [place] 00:00:00 00:00:00 N 05774 [facility] 2021-11-23 2021-11-23 [facility] [id number] M atagor 00:00:00 00:00:00 Rosalio leal, DOG TRAINER: Sabianism Ep[facility] p 1700 [facility]o [facility] [place] [place] [address] Brooks , Ph. ([phone]) --20072021-11-12 2021-11-12 [facility] 120 [id number] [place] 00:00:00 00:00:00 N 44076 [facility] 2021-09-07 2021-09-07 Orders Doctor 1.2.840.9 [id number] Univers 00:00:00 00:00:00 Only Unassigned, 72929.1.1 ity of [place] 3.104.2.7 [place] .3.609384 Medica l .8 Branch 2021-08-25 2021-08-25 Telephone Narcisa, 1.2.840.5 [id number] [facility] 00:00:00 00:00:00 Wondiful A 03152.1.1 i ty of 3.104.2.7 [place] .3.177141 Medica l .8 [place] 2021-07-23 2021-07-23 Outpatient R JUAN R MATHEWS [facility] [id number] Univers 15:00:00 15:41:17 ity of [facility] 2021-06-22 2021-06-22 Orders Doctor TREMAYNE 1.2.840.114 [id number] Univers 00:00:00 00:00:00 Only Unassigned, SUZETTE 350.1.13.10 ity of [place] [facility] 4.2.7.2.686 Arvin as [phone] Medi gissell 009 [place] 2021-05-25 2021-05-25 Orders Doctor 1.2.840.8 [id number] Univers 00:00:00 00:00:00 Only Unassigned, 37806.1.1 ity of [place] 3.104.2.7 [place] .3.660332 Medica l .8 [place] 2021-04-30 2021-04-30 Outpatient JUAN R DE SOUZA [facility] [id number] Univers 12:45:00 13:17:54 ity of [facility] 2021-03-28 2021-03-28 Patient Doctor 1.2.840.5 [id number] Univers 00:00:00 00:00:00 Secure Msg Unassigned, 69003.1.1 ity of [place] 3.104.2.7 [place] .3.124827 Medica l .8 [place] 2021-03-27 2021-03-27 Outpatient Hermes REGALADO [facility] [id number] Univers 14:30:00 15:12:02 CORTES ity of [facility] 2021-03-27 2021-03-27 Office Fabricio, 1.2.840.6 [id number] Univers 14:30:00 15:12:02 Visit Cortes 20018.1.1 ity of 3.104.2.7 [place] .3.475565 Medica l .8 [place] 2021-03-27 2021-03-27 Travel 1.2.840.1 1.2.314.528 [id number] Univers 00:00:00 00:00:00 12592.1.1 350.1.13.10 ity of 3.104.2.7 4.2.7.3.698 [place] .3.316898 084.8 Medica l .8 [place] 2021-03-13 2021-03-13 Outpatient Hermes CUEVAS [facility] [id number] Univers 10:00:00 10:57:46 TATIANA ity [facility] 2021-03-13 2021-03-13 [facility] [id number] Univers 10:00:00 10:57:46 TATIANA ity [facility] 2021-02-23 2021-02-23 Patient Anene, 1.2.840.2 [id number] Univers 00:00:00 00:00:00 Secure Msg Cortes 44052.1.1 i ty of 3.104.2.7 [place] .3.534305 Medica l .8 [place] 2021-02-23 2021-02-23 Patient Anejohn, 1.2.840.2 [id number] Univers 00:00:00 00:00:00 Secure Msg Cortes 70127.1.1 i ty of 3.104.2.7 [place] .3.301883 Medica l .8 [place] 2021-02-17 2021-02-17 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 Cortes Regalado 1.2.840.7 [id number] Univers 08:30:00 08:41:17 [place] [address].1.1 ity of 3.104.2.7 [place] .3.091426 Medica l .8 [place] 2021-02-17 2021-02-17 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 Cortes Regalado 1.2.840.8 [id number] Univers 08:30:00 08:41:17 Visit Lab, [place] 71917.1.1 ity of 3.104.2.7 [place] .3.252682 Medica l .8 [place] 2021-02-17 2021-02-17 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 Lab, Ang - Db [facility] 1.2.840.1 [id number] Univers 08:25:30 08:40:30 Visit Cortes Regalado 350.1.13.10 ity of [place] 4.2.7.2.686 Arvin as CORA?BLEA [phone] [facility] [address] [place] MEDICAL OFFICE BUILDING 2021-02-17 2021-02-17 Outpatient R FABRICIO, [facility] [id number] Univers 08:30:00 08:30:00 CORTES ity of [facility] 2021-02-16 2021-02-16 [facility] [id number] Univers 16:00:00 16:34:33 CORTES ity of [facility] 2021-02-16 2021-02-16 Office Nicollene, 1.2.840.1 [id number] [facility] 16:00:00 16:34:33 Visit Cortes 78722.1.1 ity of 3.104.2.7 [place] .3.566396 Medica l .8 [place] 2021-02-16 2021-02-16 Office Nicollejohn, 1.2.840.0 [id number] [facility] 16:00:00 16:34:33 Visit Cortes 53736.1.1 ity of 3.104.2.7 [place] .3.947144 Medica l .[address] [place] [address] 2021-02-16 2021-02-16 Office [facility] 1.2.840.114 [id number] Univers 15:24:24 16:34:33 Visit Cortes HEALTH 350.1.13.10 it y of [place] 4.2.7.2.686 Arvin as CORA?BLEA [phone] [facility] 044 [place] MEDICAL OFFICE [facility] 2021-02-16 2021-02-16 Outpatient R FABRICIO, [facility] [id number] Univers 16:00:00 16:00:00 CORTES ity of [facility] 2021-02-16 2021-02-16 [facility] [id number] Univers 16:00:00 16:00:00 CORTES ity [facility] 2021-02-16 2021-02-16 Travel 1.2.840.1 1.2.839.216 [id number] Univers 00:00:00 00:00:00 88221.1.1 350.1.13.10 ity of 3.104.2.7 4.2.7.3.698 [place] .3.794961 084.8 Medica l .8 Branch 2021-02-16 2021-02-16 Travel 1.2.840.1 1.2.625.182 [id number] Univers 00:00:00 00:00:00 06266.1.1 350.1.13.10 ity of 3.104.2.7 4.2.7.3.698 [place] .3.881965 084.8 Medica l .8 Branch 2021-02-13 2021-02-13 Rambo CUEVAS [facility] [id number] Univers 07:45:00 09:29:35 TATIANA ity of [facility] 2021-02-13 2021-02-13 Travel 1.2.840.1 1.2.591.638 [id number] [facility] 00:00:00 00:00:00 70394.1.1 350.1.13.10 ity of 3.104.2.7 4.2.7.3.698 [place] .3.672703 084.8 Medica l .8 Branch 2021-02-13 2021-02-13 Travel 1.2.840.1 1.2.076.961 [id number] Univers 00:00:00 00:00:00 49416.1.1 350.1.13.10 ity of 3.104.2.7 4.2.7.3.698 [place] .3.973149 084.8 Medica l .8 Branch 2021-02-13 2021-02-13 Travel 1.2.840.1 1.2.459.106 [id number] Univers 00:00:00 00:00:00 70086.1.1 350.1.13.10 ity of 3.104.2.7 4.2.7.3.698 [place] .3.746649 084.8 Medica l .8 Branch 2021-02-06 2021-02-06 Outpatient R BARKSDALE, [facility] [id number] Univers 10:40:00 10:54:42 SONG ity of [facility] 2021-02-06 2021-02-06 Office Barksdale, 1.2.840.9 [id number] Univers 10:40:00 10:54:42 Visit Song 40926.1.1 ity of 3.104.2.7 [place] .3.207902 Medica l .8 [place] 2021-02-06 2021-02-06 Outpatient R BARKSDALE, [facility] [id number] Univers 10:40:00 10:54:42 SONG ity of [facility] 2021-02-06 2021-02-06 Office [place], 1.2.840.1 [id number] Univers 10:40:00 10:54:42 Visit Song 21843.1.1 ity of 3.104.2.7 [place] .3.340587 Medica l .8 [place] 2021-02-06 2021-02-06 Office Barksdale, 1.2.840.7 [id number] Univers 10:11:55 10:54:42 Visit Song 20574.1.1 ity of 3.104.2.7 [place] .3.623487 Medica l .8 [place] 2021-02-06 2021-02-06 Office [place], 1.2.840.8 [id number] Univers 09:20:00 09:40:00 Visit Song 61559.1.1 ity of 3.104.2.7 [place] .3.225812 Medica l .8 [place] 2021-02-06 2021-02-06 Office Barksdale, UNIVERSIT 1.2.840.114 [id number] Univers 09:20:00 09:40:00 Visit Song Y HEALTH 350.1.13.10 i ty of CL[place]ICS 4.2.7.2.686 [place] [phone] [facility] gissell 095 [place] 2021-02-06 2021-02-06 Office [place], 1.2.840.2 [id number] Univers 09:20:00 09:40:00 Visit Song 75998.1.1 ity of 3.104.2.7 [place] .3.874956 Medica l .8 [place] 2021-02-06 2021-02-06 Office [place], 1.2.840.0 [id number] Univers 09:20:00 09:40:00 Visit Song 13819.1.1 ity of 3.104.2.7 [place] .3.041193 Medica l .8 [place] 2021-02-06 2021-02-06 Outpatient R [facility] [id number] Univers 09:20:00 09:20:00 SONG ity of [facility] 2021-02-06 2021-02-06 Outpatient R [facility] [id number] Univers 09:20:00 09:20:00 SONG ity of [facility] [place] [facility] 2021-02-06 2021-02-06 Orders Doctor 1.2.840.8 [id number] Univers 00:00:00 00:00:00 Only Unassigned, 67250.1.1 ity of [place] 3.104.2.7 [place] .3.920194 Medica l .8 [place] 2021-02-06 2021-02-06 Travel 1.2.840.1 1.2.677.074 [id number] Univers 00:00:00 00:00:00 84779.1.1 350.1.13.10 ity of 3.104.2.7 4.2.7.3.698 [place] .3.372292 084.8 Medica l .8 [place] 2021-02-06 2021-02-06 Orders Doctor 1.2.840.8 [id number] Univers 00:00:00 00:00:00 Only Unassigned, 29750.1.1 ity of [place] 3.104.2.7 [place] .3.211652 Medica l .8 [place] 2021-02-06 2021-02-06 Travel 1.2.840.1 1.2.537.196 [id number] Univers 00:00:00 00:00:00 92301.1.1 350.1.13.10 ity of 3.104.2.7 4.2.7.3.698 [place] .3.985403 084.8 Medica l .8 Branch 2021-02-06 2021-02-06 Orders Doctor 1.2.840.1 [id number] Univers 00:00:00 00:00:00 Only Unassigned, 41194.1.1 ity of [place] 3.104.2.7 [place] .3.292635 Medica l .8 Branch 2021-02-06 2021-02-06 Travel 1.2.840.1 1.2.644.407 [id number] Univers 00:00:00 00:00:00 53434.1.1 350.1.13.10 ity of 3.104.2.7 4.2.7.3.698 [place] .3.263246 084.8 Medica l .8 [place] 2021-01-15 2021-01-15 Outpatient R [facility] [id number] Univers 10:00:00 10:00:00 SONG ity [facility] 2021-01-09 2021-01-09 Outpatient R [facility] [id number] Univers 13:20:00 13:20:00 SONG ity [facility] 2021-01-07 2021-01-07 Patient Shamir, UNIVERSIT 1.2.840.114 [id number] Univers 00:00:00 00:00:00 Secure Msg Song Y HEALTH 350.1.13.10 ity of [place] 4.2.7.2.[place] [phone] [facility] 095 [place] 2021-01-07 2021-01-07 Patient Shamir, 1.2.840.6 [id number] Univers 00:00:00 00:00:00 Secure Msg Song 13850.1.1 i ty of 3.104.2.7 [place] .3.147665 Medica l .8 [place] 2021-01-07 2021-01-07 Patient Shamir, 1.2.840.6 [id number] Univers 00:00:00 00:00:00 Secure Msg Song 96108.1.1 i ty of 3.104.2.7 [place] .3.877681 Medica l .8 [place] 2020-09-23 2020-09-23 Urgent Provider, [facility] 1.2.840.114 [id number] Univers 11:09:08 11:29:08 Care Cortes [facility] 350.1.13.10 ity of [place] 4.2.7.2.686 Arvin as Professio [phone] Md dical nal [address] [place] Office Building One 2020-09-23 2020-09-23 Outpatient R [facility] [id number] Univers 11:00:00 11:00:00 ity of [facility] [place] [facility] 2020-09-11 2020-09-11 Office Luiz, [facility] 1..840.114 [id number] Univers 10:09:35 10:53:15 Visit Gilda R Health 350.1.13.10 it y of [place]2.7.2.686 [place] [id number] [address] Office Building 2020-09-11 2020-09-11 Outpatient R LUIZ, [facility] [id number] Univers 10:40:00 10:40:00 GILDA ity of [facility] [place] [facility] 2020-09-11 2020-09-11 Orders Doctor CASPER 1.2.840.114 [id number] Univers 00:00:00 00:00:00 Only Unassigned, SUZETTE 350.1.13.10 ity of [place] [facility] 4.2.7.2.686 Arvin as [phone] [facility] 009 [place] 2020-09-10 2020-09-10 Telephone BERNABE [facility] 1.2.840.11 [id number] Univers 00:00:00 00:00:00 Song Y HEALTH 350.1.13.10 i ty of [place] 4[place]2.[place].2.[place] [phone] [address] 2020-09-04 2020-09-04 Patient Shamir, [facility] 1.2.840.114 [id number] Univers 00:00:00 00:00:00 Secure Mskhai De Santiago 350.1.13.10 ity [place]2.[place] [phone] [facility] [address] Office Building 2020-08-22 2020-08-22 Case Gramm, [facility] 1.2.840.114 [id number] Univers 00:00:00 00:00:00 Management Meliza Pro Eliseo 350.1.13.10 ity of [place] 4.2.7.2.[place] Profess[place] [phone] [facility] 204 [facility] 2020-08-21 2020-08-21 Office [facility] 1.2.840.114 [id number] Univers 10:49:39 11:21:33 Visit Yury [place] 350.1.13.10 i ty of [place] 4.2.7.2.686 [place] Professio [phone] Md dic[address] 2020-08-21 2020-08-21 Outpatient R SYDNI [facility] [id number] Univers 10:45:00 10:45:00 [facility] 2020-08-21 2020-08-21 Orders Doctor TREMAYNE 1.2.840.114 [id number] Univers 00:00:00 00:00:00 Only Unassigned, SUZETTE 350.1.13.10 ity of [place] [facility] 4.2.7.2.686 Arvin as [phone] [address] 2020-08-13 2020-08-13 Outpatient Hermes BALDWIN [facility] [id number] Univers 13:00:00 13:00:00 LUCIA johnson [facility] 2020-08-13 2020-08-13 Outpatient Hermes BALDWIN [facility] [id number] Univers 13:00:00 13:00:00 LUCIA jenise [facility] 2020-08-12 2020-08-12 Telephone Narcisa [facility] 1.2.840.114 [id number] Univers 00:00:00 00:00:00 Wondiful [facility] 350.1.13.10 ity of [place] 4.2.7.2.686 Arvin as Professio [phone] [address] Office [address] [facility] 2020-07-17 2020-07-17 Outpatient Hermes BALDWIN [facility] [id number] Univers 13:00:00 13:00:00 LCUIA jenise [facility] 2020-07-04 2020-07-04 Outpatient Hermes BALDWIN [facility] [id number] Univers 10:00:00 10:00:00 LUCIA [facility] 2020-07-04 2020-07-04 Maryana Baldwin [facility] 1.2.840.114 [id number] Univers 08:02:38 09:02:38 ne Visit [facility] [id number] i [place] [phone] [address] Office Building 2020-07-04 2020-07-04 Maryana Baldwin [facility] 1.2.840.114 [id number] 08:02:38 09:02:38 ne Visit [facility] [id number] [place] 4.2.7.2.686 [place] [phone] [place] [address] Office Building 2020-06-19 2020-06-19 Outpatient Hermes BALDWIN [facility] [id number] Univers 11:00:00 11:00:00 LUCIA [facility] 2020-06-19 2020-06-19 Maryana Baldwin [facility] 1.2.840.114 [id number] Univers 08:11:06 09:11:06 ne Visit [facility] 350.1.13.10 i ty [place] [phone] [address] Office Building 2020-06-19 2020-06-19 Maryana Baldwin [facility] 1.2.840.114 [id number] 08:11:06 09:11:06 ne Visit [facility] [id number] [place] 4.2.7.2.686 [place] [phone] [place] [address] Office Building 2020-06-17 2020-06-17 Patient Gonzalo AZKYLEIGH 1.2.840.114 [id number] Univers 00:00:00 00:00:00 Outreach [place] [facility] 350.1.13.10 i ty of [place] [phone] [address] 2020-06-17 2020-06-17 Patient Gonzalo [facility] 1.2.840.114 [id number] 00:00:00 00:00:00 Outreach [place] PRIMARY 350.1.13.10 [place] CARE 4.2.7.2.686 PAVILLION [phone] [facility] 2020-06-12 2020-06-12 Telemedici Denny [facility] 1.2.840.114 [id number] Univers 08:09:12 14:44:13 ne Visit [facility] 350.1.13.10 [place] [phone] [address] Office Building 2020-06-12 2020-06-12 Telemedici Denny [facility] 1.2.840.114 [id number] 08:09:12 14:44:13 ne Visit [facility] 350.1.13.10 [place] 4.2.7.2.686 [place] [phone] [place] [address] Office Building 2020-06-12 2020-06-12 Outpatient R DENNY [facility] [id number] Univers 14:00:00 14:00:00 LUCIA johnson of [facility] 2020-06-12 2020-06-12 Patient Denny AZKYLEIGH 1.2.840.114 [id number] Univers 00:00:00 00:00:00 Secure Msg [facility] 350.1.13.10 [place] [phone] [address] Office Building 2020-05-19 2020-05-19 Telephone Denny AZKYLEIGH 1.2.354.922 [id number] Univers 00:00:00 00:00:00 [facility] 350.1.13.10 it y [place] [phone] [address] Office Building 2020-05-19 2020-05-19 Telephone Denny [facility] 1.2.690.538 [id number] 00:00:00 00:00:00 [facility] 350.1.13.10 [place] 4.2.7.2.686 [place] [phone] [place] [address] Office Building 2020-05-15 2020-05-15 Outpatient R DENNY [facility] [id number] Univers 11:00:00 11:00:00 LUCIA [facility] 2020-04-29 2020-04-29 Telemedicmary [facility] 1.2.840.114 [id number] Univers 09:04:10 13:44:29 [facility] 350.1.13.10 [place] [phone] [address] Office Building 2020-04-29 2020-04-29 Telemedici [facility] 1.2.840.114 [id number] 09:04:10 13:44:29 ne Visit [facility] 350.1.13.10 [place] 4.2.7.2.686 [place] [phone] [place] [address] Office [facility] 2020-04-29 2020-04-29 Outpatient R DENNY [facility] [id number] Univers 13:00:00 13:00:00 LUCIA [facility] 2020-04-23 2020-04-23 Outpatient R PAUL URIAS [facility] [id number] Univers 15:00:00 15:00:00 [facility] 2020-04-16 2020-04-16 Outpatient R LUIZ [facility] [id number] Univers 10:00:00 10:00:00 GILDA [facility] 2020-04-15 2020-04-15 Office Luiz [facility] 1.2.840.114 [id number] Univers 11:32:37 15:05:15 Visit Gilda R [facility] 350.1.13.10 it [place] [phone] [facility] [address] Office Building 2020-04-15 2020-04-15 Office [facility] 1.2.840.114 [id number] Univers 12:56:21 15:04:41 Visit Lucia [facility] 350.1.13.10 it y of [place] [phone] [facility] [address] Office Building 2020-04-15 2020-04-15 Outpatient R DENNY [facility] [id number] Univers 13:00:00 13:00:00 LUCIA [facility] 2020-04-07 2020-04-07 Telephone [facility] 1.2.840.114 [id number] Univers 00:00:00 00:00:00 Wondiful A [place] 350.1.13.10 ity of [place] [phone] [address] 2020-04-01 2020-04-01 [facility] 1.2.840.114 [id number] Univers 15:49:47 17:45:43 [facility] 350.1.13.10 i ty of [place] 4.2.7.2.686 Arvin as Professio [phone] [address] 2020-04-01 2020-04-01 [facility] 1.2.840.114 [id number] 15:49:47 17:45:43 ne Visit [facility] 350.1.13.10 [place] 4.2.7.2.686 Professio [phone] [address] 2020-04-01 2020-04-01 Outpatient Hermes REGALADO [facility] [id number] Univers 16:00:00 16:00:00 CORTES johnson [facility] 2020-03-18 2020-03-18 Outpatient Hermes BALDWIN [facility] [id number] Univers 13:00:00 13:00:00 LUCIA johnson [facility] 2020-03-18 2020-03-18 Telemedici Denny, [facility] 1.2.840.114 [id number] Univers 11:30:57 12:30:57 ne Visit [facility] 350.1.13.10 i ty [place] [phone] [address] Office Building 2020-03-13 2020-03-13 Office [facility] 1.2.840.114 [id number] Univers 10:01:56 10:40:04 Visit Gilda [facility] 350.1.13.10 it y [place] [phone] [address] Office Building 2020-03-13 2020-03-13 Outpatient R LUIZ, [facility] [id number] Univers 10:00:00 10:00:00 GILDA [facility] 2020-03-13 2020-03-13 Orders Doctor TREMAYNE 1..840.114 [id number] Univers 00:00:00 00:00:00 Only Unassigned, SUZETTE 350.1.13.10 ity of [place] [facility] 4.2.7.2.686 Arvin as [phone] [address] 2020-03-12 2020-03-12 Refill [facility] 1.2.840.114 [id number] Univers 00:00:00 00:00:00 Gilda [facility] 350.1.13.10 it [place] [phone] [address] Office Building 2020-03-11 2020-03-11 Outpatient R LUIZ, [facility] [id number] Univers 08:30:00 08:30:00 [facility] 2020-03-10 2020-03-10 Outpatient R DENNY [facility] [id number] Univers 13:00:00 13:00:00 LUCIARITA johnson [facility] 2020-03-10 2020-03-10 Patient Shamir, [facility] 1..840.114 [id number] Univers 00:00:00 00:00:00 Secure Msg [facility] 350.1.13.10 [place] [phone] [address] Office Building 2020-03-10 2020-03-10 Case Luiz [facility] 1.2.840.114 [id number] Univers 00:00:00 00:00:00 Management Gilda [facility] 350.1.13.10 [place] [phone] [address] Office Building 2020-03-10 2020-03-10 Telephone Narcisa [facility] 1.2.840.114 [id number] Univers 00:00:00 00:00:00 Wondiful A Health 350.1.13.10 ity of [place] 4.2.7.2.686 Arvin as Professio [phone] Md dical nal [address] Office [address] One 2020-02-15 2020-02-15 Office Denny [facility] 1.2.840.114 [id number] Univers 13:59:57 15:22:42 Visit Lucia [facility] 350.1.13.10 it y of [place] [phone] [address] Office Building 2020-02-15 2020-02-15 Outpatient R DENNY [facility] [id number] Univers 14:00:00 14:00:00 LUCIA ity [facility] 2020-01-17 2020-01-28 Office Shamir [facility] 1.2.840.114 [id number] Univers 13:42:35 23:03:59 Visit Song [facility] 350.1.13.10 it [place] [phone] [address] Office Building 2020-01-17 2020-01-17 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 Jairo, Clc-Bls Lab [facility] 1.2.8 40.114 [id number] Univers 14:42:21 14:57:21 Visit Song Barksdale [facility] 350.1.13.10 ity of [place] [phone] [address] Office Building 2020-01-17 2020-01-17 Outpatient R BARKSDALE, [facility] [id number] Univers 13:40:00 13:40:00 SONG ity [facility] 2020-01-11 2020-01-11 Outpatient R DENNY, [facility] [id number] Univers 14:00:00 14:00:00 LUCIA itjenise [facility] 2020-01-10 2020-01-10 Telephone [facility] 1.2.840.114 [id number] Univers 00:00:00 00:00:00 Wondiful A Health 350.1.13.10 ity of [place] 4.2.7.2.686 Arvin as Professio [phone] [address] Office [facility] 2020-01-05 2020-01-05 Orders Doctor TREMAYNE 1.2.840.114 [id number] Univers 00:00:00 00:00:00 Only Unassigned, SUZETTE 350.1.13.10 ity of [place] [facility] 4.2.7.2.686 Arvin as [phone] [address] 2019-12-11 2019-12-11 Telephone [facility] 1.2.840.114 [id number] Univers 00:00:00 00:00:00 Wondiful A [facility] 350.1.13.10 ity of [place] 4.2.7.2.686 [place] as Professio [phone] [address] Office [facility] 2019-12-06 2019-12-06 Patient Shamir [facility] 1.2.840.114 [id number] Univers 00:00:00 00:00:00 Secure Msg Song [facility] 350.1.13.10 [place] [phone] [address] Office Building 2019-12-04 2019-12-04 Telephone [facility] 1.2.840.11 [id number] Univers 00:00:00 00:00:00 Song Y HEALTH 350.1.13.10 i ty of CL[place] [id number] [address] 2019-11-08 2019-11-08 Telemedici Barks[place], [facility] 1.2.840.114 [id number] Univers 08:15:19 15:40:19 ne Visit Song De Santiago 350.1.13.10 i ty [place] [phone] [address] Office Building 2019-11-08 2019-11-08 [facility] [id number] Univers 14:00:00 14:00:00 SONG ity of [facility] 2019-10-12 2019-10-12 [facility]medic [facility] 1.2.840.1 14 [id number] Univers 13:13:30 15:14:20 ne Visit Song [facility] 350.1.13.10 ity of CLINICS [place].2.[place] [phone] [address] 2019-10-12 2019-10-12 [facility] [id number] Univers 14:15:00 14:15:00 SONG ity of [facility] 2019-10-02 2019-10-04 Hospital TREMAYNE Nicholas 1.2.840.114 [id number] Univers 05:16:00 12:31:00 Encounter José BRADFORD 350.1.13.10 ity of [facility] 4.2.7.2.686 Arvin as [phone] [address] 2019-10-02 2019-10-02 Outpatient P JOSÉ NICHOLAS [facility] MARGARITA [id number] Univers 05:16:00 05:16:00 JOSÉ NICHOLAS ity of [facility] 2019-10-02 2019-10-02 Orders Doctor TREMAYNE 1.2.840.114 [id number] Univers 00:00:00 00:00:00 Only Unassigned, SUZETTE 350.1.13.10 ity of [place] [facility] 4.2.7.2.686 Arvin as [phone] [facility] [address] 2019-09-29 2019-09-29 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 1, Adc Lab [facility] 1.2.840.114 [id number] Univers 07:54:57 08:09:57 Visit Song [place] 350.1.13.10 ity of [place] 4.2.7.2.686 [place] [phone] [facility] [address] 2019-09-29 2019-09-29 Outpatient R [facility] [id number] Univers 08:00:00 08:00:00 ity of [facility] 2019-09-28 2019-09-28 Routine [facility] 1.2.840.114 [id number] Univers 14:45:12 17:00:33 Song Espinoza 350.1.13.10 ity of Visit [place] 4.2.7.2.[place] [phone] Md dical nal [address] [place] [address] 2019-09-28 2019-09-28 Out[facility] [id number] Univers 16:30:00 16:30:00 LUCY ity [facility] 2019-09-28 2019-09-28 Outpatient R [facility] [id number] Univers 15:00:00 15:00:00 SONG ity [facility] 2019-09-28 2019-09-28 Orders Doctor TREMAYNE 1.2.840.114 [id number] Univers 00:00:00 00:00:00 Only Unassigned, SUZETTE 350.1.13.10 ity of [place] [facility] 4.2.7.2.686 Arvin as [phone] [facility] [address] 2019-09-26 2019-09-26 Telephone [facility] 1.2.840.114 [id number] Univers 00:00:00 00:00:00 Song Espinoza 350.1.13.10 i ty of [place].2.[place] [phone] Md dical nal [address] [place] [address] 2019-09-25 2019-09-25 Routine Room, [facility] 1.2.840.1 14 [id number] Univers 09:57:19 10:12:19 Barksdale, Song Eliseo 350.1.13.10 ity of Visit [place] 4.2.7.2.[place] [phone] Md dical nal [address] [place] [address] 2019-09-25 2019-09-25 Outpatient R [facility] [id number] Univers 10:00:00 10:00:00 ity of [facility] 2019-09-21 2019-09-21 Routine Room, [facility] 1.2.840.1 14 [id number] Univers 15:00:03 17:16:02 Geri Ovalle [place] 350.1.13.10 ity of Visit [place] 4.2.7.2.[place] [phone] Md dic[address] 2019-09-21 2019-09-21 Outpatient R [facility] [id number] Univers 15:00:00 15:00:00 ity of [facility] 2019-09-20 2019-09-20 Telephone [facility] 1.2.840.114 [id number] Univers 00:00:00 00:00:00 Song Espinoza 350.1.13.10 i ty of [place] 4.2.7.2.[place] [phone] Md dical nal [address] [place] [address] 2019-09-18 2019-09-18 Routine Room, [facility] 1.2.840.1 14 [id number] Univers 10:01:30 10:51:11 Geri Ovalle Eliseo 350.1.13.10 ity of Visit [place] 4.2.7.2.[place] [phone] Md dical [address] 2019-09-18 2019-09-18 Outpatient R [facility] [id number] Univers 10:00:00 10:00:00 ity of [facility] 2019-09-17 2019-09-17 Outpatient R [facility] [id number] Univers 08:30:00 08:30:00 ity of [facility] 2019-09-17 2019-09-17 Telephone [facility] 1.2.840.114 [id number] Univers 00:00:00 00:00:00 Song Espinoza 350.1.13.10 i ty of [place] 4.[place].2.[place] [phone] Md dical nal [address] [place] [address] 2019-09-13 2019-09-16 [facility] 1.2.840.114 [id number] Univers 11:36:59 12:42:21 Song Espinoza 350.1.13.10 ity of Visit [place] 4.2.7.2.[place] [phone] Md dical nal 134 [facility] 2019-09-14 2019-09-14 Emergency Cher, [facility] 1.2.075.779 [id number] Univers 09:08:15 09:57:00 Timmy Espinoza 350.1.13.10 ity of [place] 4.2.7.2.686 [place] [phone] [facility] [address] 2019-09-14 2019-09-14 Outpatient [facility] [id number] Univers 09:45:00 09:45:00 SONG ity [facility] 2019-09-13 2019-09-13 Outpatient R [facility] [id number] Univers 11:30:00 11:30:00 [facility] 2019-09-10 2019-09-10 Office [facility] 1.2.840.114 [id number] Univers 16:10:47 16:45:51 Visit Keily Espinoza 350.1.13.10 ity of [place] 4.2.[place].2.[place] [phone] Md dical nal 044 [facility] 2019-09-10 2019-09-10 [facility] [id number] Univers 16:00:00 16:00:00 WONDIFUL ity o f [facility] 2019-09-04 2019-09-04 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 June, Kathleen Lab Main [facility] 1.2.8 40.114 [id number] Univers 10:45:05 11:00:05 Visit Glenny Rosa 350.1.13.10 ity of [place].2.[place].2.[place] [phone] Md dical nal 353 [facility] 2019-09-04 2019-09-04 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 Jena, [facility] 1.2 .840.114 [id number] Univers 10:02:43 10:32:43 Visit Glenny Rosa AUDIT PARTNER 350.1.13.10 ity of REGIONAL 4.2.7.2.686 Arvin as MATERNAL [phone] [facility] ical & CHILD [address] [place] [address] 2019-09-04 2019-09-04 Outpatient P [facility] [id number] Univers 10:00:00 10:00:00 ity [facility] 2019-09-02 2019-09-02 Telephone [facility] 1.2.840.114 [id number] Univers 00:00:00 00:00:00 Virgilrodrickjim Espinoza 350.1.13.10 ity of [place] 4.[place].2.[place] [phone] [facility] 044 [facility] 2019-08-23 2019-08-29 Routine [facility] 1.2.840.114 [id number] Univers 09:43:04 15:58:29 Song Espinoza 350.1.13.10 ity of Visit [place] 4.2.7.2.[place] [phone] Md dical nal [address] [place] [address] 2019-08-27 2019-08-27 Outpatient R GERI OVALLE [facility] [id number] Univers 08:15:00 08:15:00 ity [facility] 2019-08-24 2019-08-24 Telephone [facility] 1.2.840.114 [id number] Univers 00:00:00 00:00:00 Song [place] 350.1.13.10 i ty of [place] 4.2.7.2.[place] [phone] Md dical nal [address] [place] [address] 2019-08-23 2019-08-23 [facility] [id number] Univers 09:45:00 09:45:00 SONG ity [facility] 2019-08-16 2019-08-16 Outpatient R [facility] [id number] Univers 08:15:00 08:15:00 ity [facility] 2019-08-13 2019-08-13 Telephone [facility] 1.2.840.114 [id number] Univers 00:00:00 00:00:00 Song Espinoza 350.1.13.10 i ty of [place] 4.2.[place].2.[place] [phone] [facility] 134 [facility] 2019-08-10 2019-08-10 Outpatient R SHAMIR [facility] [id number] Univers 11:00:00 11:00:00 SONG ity of [facility] 2019-08-10 2019-08-10 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 2, Adc Lab [facility] 1.2.840.114 [id number] Univers 09:00:14 09:15:14 Visit Song Barks[place] 350.1.13.10 ity of [place] 4.2.7.2.[place] [phone] [facility] 353 [facility] 2019-08-10 2019-08-10 Outpatient R [facility] [id number] Univers 08:30:00 08:30:00 ity [facility] 2019-08-10 2019-08-10 Orders Doctor TREMAYNE 1.2.840.114 [id number] Univers 00:00:00 00:00:00 Only Unassigned, SUZETTE 350.1.13.10 ity of [place] [facility] 4.2.7.2.686 Arvin as [phone] [address] 2019-08-09 2019-08-09 [facility] 1.2.840.114 [id number] Univers 08:13:27 09:24:52 Song Espinoza 350.1.13.10 ity of Visit [place] 4.2.7.2.[place] [phone] [facility] 134 [facility] 2019-08-09 2019-08-09 Outpatient R [facility] [id number] Univers 08:45:00 08:45:00 ity [facility] 2019-08-01 2019-08-01 Telephone Shamir [facility] 1.2.840.114 [id number] Univers 00:00:00 00:00:00 Song [place] 350.1.13.10 i ty of [place].2.[place] [phone] Md dical nal 134 [facility] 2019-07-26 2019-07-26 Outpatient R [facility] [id number] Univers 08:45:00 08:45:00 ity of [facility] 2019-07-12 2019-07-12 Routine [facility] 1.2.840.114 [id number] Univers 08:33:49 13:46:18 Song Espinoza 350.1.13.10 ity of Visit [place] 4.2.7.2.[place] [phone] Md dical nal 134 [facility] 2019-07-12 2019-07-12 Outpatient R [facility] [id number] Univers 08:45:00 08:45:00 SONG ity [facility] 2019-06-29 2019-06-29 Outpatient R [facility] [id number] Univers 11:00:00 11:00:00 SONG ity [facility] 2019-06-29 2019-06-29 Orders Doctor TREMAYNE 1.2.840.114 [id number] Univers 00:00:00 00:00:00 Only Unassigned, SUZETTE 350.1.13.10 ity of [place] [facility] 4.2.7.2.686 Arvin as [phone] [address] 2019-06-01 2019-06-01 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 Ultrasound, Adc [facility] 1.2 .840.114 [id number] Univers 09:49:38 13:34:06 Visit Ann Esparza 350.1.13.10 ity of [place] 4.[place].2.[place] [phone] Md dical nal 134 [facility] 2019-06-01 2019-06-01 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 2, Adc Lab [facility] 1.2.840.114 [id number] Univers 11:23:14 11:57:30 Visit Song Barks[place] 350.1.13.10 ity of [place] 4.[place].2.[place] [phone] Md dical nal 353 [facility] 2019-06-01 2019-06-01 Outpatient [facility] [id number] Univers 10:00:00 10:00:00 ANN ity [facility] 2019-06-01 2019-06-01 Routine [facility] 1.2.840.114 [id number] Univers 08:59:05 09:48:35 Song Espinoza 350.1.13.10 ity of Visit [place] 4.2.7.2.[place] [phone] Md dic[address] 2019-06-01 2019-06-01 Orders Doctor TREMAYNE 1.2.840.114 [id number] Univers 00:00:00 00:00:00 Only Unassigned, SUZETTE 350.1.13.10 ity of [place] [facility] 4.2.7.2.686 Arvin as [phone] [address] 2019-05-15 2019-05-15 Telephone [facility] 1.2.840.114 [id number] Univers 00:00:00 00:00:00 Song Espinoza 350.1.13.10 i ty of [place] 4.[place].2.[place] [phone] Md dical nal [address] [place] [address] 2019-05-04 2019-05-04 Outpatient R [facility] [id number] Univers 08:30:00 08:59:50 SONG ity [facility] 2019-05-04 2019-05-[address] 1.2.840.114 [id number] Univers 08:23:59 08:59:50 Song Espinoza 350.1.13.10 ity of Visit [place] 4.2.7.2.[place] [phone] Md dical nal [address] [place] [address] 2019-04-19 2019-04-19 Telephone [facility] 1.2.840.114 [id number] Univers 00:00:00 00:00:00 Song Espinoza 350.1.13.10 i ty of [place].2.[place] [phone] Md dic[address] 2019-04-13 2019-04-13 Routine [facility] 1.2.840.114 [id number] Univers 08:32:31 19:43:26 Snog Espinoza 350.1.13.10 ity of Visit [place] 4.2.7.2.[place] [phone] Md dical nal 134 [facility] 2019-04-13 2019-04-13 Outpatient R [facility] [id number] Univers 08:30:00 09:47:39 SONG johnson [facility] 2019-04-06 2019-04-06 Telephone [facility] 1.2.840.114 [id number] Univers 00:00:00 00:00:00 Song Espinoza 350.1.13.10 i ty of [place] [phone] [address] 2019-03-16 2019-03-16 Outpatient R [facility] [id number] Univers 11:15:00 12:07:16 SONG johnson [facility] 2018-10-25 2018-10-25 Telephone [facility] [id number] Univers 00:00:00 00:00:00 [id number] [place] [facility] [phone] [address] Office [facility] One Results Test Description Test Time Test Comments Results Result Comments Source COMP. METABOLIC PANEL (74055) 2022-06-08 17:38:37 Test Item Value Reference Range Interpretation Comme nts NA (test code = 9494288801) 140 mmol/L 135-145 K (test code = 3272364215) 4.2 mmol/L 3.5-5.0 CL (test code = 2082833352) 105 mmol/L 98-108 CO2 TOTAL (test code = 6708186160) 22 mmol/L 23-31 L AGAP (test code = 7475548215) 13 2-16 BUN (test code = 7753514765) 14 mg/dL 7-23 GLUCOSE (test code = 5418867819) 110 mg/dL 70-110 CREATININE (test code = 0.91 mg/dL 0.50-1.04 3011085563) TOTAL BILI (test code = 0.5 mg/dL 0.1-1.2 4978733983) CALCIUM (test code = 0074828181) 10.0 mg/dL 8.6-10.6 T PROTEIN (test code = 2536437714) 7.9 g/dL 6.3-8.2 ALBUMIN (test code = 0233116739) 4.7 g/dL 3.5-5.0 ALK PHOS (test code = 2601519058) 81 U/L 34-122 ALTv (test code = 1742-6) 21 U/L 5-35 AST(SGOT) (test code = 3509406396) 23 U/L 13-40 eGFR (test code = 1531255574) 71.6 mL/min/1.73m2 FANG (test code = FANG) Association of Glomerular Filtration Rate (GFR) and Staging of Kidney Disease* + +-------- + ------+| GFR (mL/min/1.73 m2) ?| With Kidney Damage ?| ?Without Kidney Damage+ +-- + +| ?>90 ?| ?Stage one ?| ? Normal ?+ +------- + -------+| ?60-89 ?| ?Stage two ?| ? Decreased GFR ? + +-------- + ------+| ?30-59 ?| ?Stage three ?| ? Stage three ? + +-------- + ------+| ?15-29 ?| ?Stage four ? | ? Stage four ?+ +------- + -------+| ?<15 (or dialysis) ? ?| ?Stage five ? | ? Stage five ?+ +------- + -------+ *Each stage assumes the associated GFR level has been in effect for at least three months. ?Stages 1 to 5, with or without kidney disease, indicate chronic kidney disease. Notes: Determination of stages one and two (with eGFR >59mL/min/1.73 m2) requires estimation of kidney damage for at least three months as defined by structural or functional abnormalities of the kidney, manifested by either:Pathological abnormalities or Markers of kidney damage (including abnormalities in the composition of the blood or urine or abnormalities in imaging tests). Lab Interpretation (test code = Abnormal 14694-4) [id number] 17[facility]37:56 Test Item Value Reference Range Interpretation Comments LIPASE (test code = 0736996406) 163 U/L 0-220 Lab Interpretation (test code = Normal 79355-5) [facility] WITH [id number] 17:08:54 Test Item Value Reference Range Interpretation Comments WBC (test code = 11.19 See_Comment H [Automated 8590-2) message] The sy stem which generated this result transmitted reference range : 4.30 - 11.10 10*3/?L. The reference range was not used to interpret this result as normal/abnormal . RBC (test code = 4.52 See_Comment [Automated 789-8) message] The sy stem which generated this result transmitted reference range : 3.93 - 5.25 10*6/?L. The reference range was not used to interpret this result as normal/abnormal . HGB (test code = 12.7 g/dL 11.6-15.0 718-7) HCT (test code = 39.1 % 35.7-45.2 4544-3) MCV (test code = 86.5 fL 80.6-95.5 787-2) MCH (test code = 28.1 pg 25.9-32.8 785-6) MCHC (test code = 32.5 g/dL 31.6-35.1 786-4) RDW-SD (test code = 41.6 fL 39.0-49.9 21604-9) RDW-CV (test code = 13.2 % 12.0-15.5 788-0) PLT (test code = 357 See_Comment [Automated 777-3) message] The sy stem which generated this result transmitted reference range : 166 - 358 10*3/ ?L. The reference r chao was not used to interpret this result as normal/abnormal . MPV (test code = 10.1 fL 9.5-12.9 79825-1) NRBC/100 WBC (test 0.0 See_Comment [Automat ed code = [id number]) message] The system which generated this result transmitted reference range : 0.0 - 10.0 /100 WBCs. The refer ence range was not u sed to interpret th is result as normal/abnormal . NRBC x10^3 (test code See_Comment [Auto mated = [id number]) message] The s ystem which generated this result transmitted reference range : 10*3/?L. The reference range was not used to interpret this result as normal/abnormal . GRAN MAT (NEUT) % 60.7 % (test code = 770-8) IMM GRAN % (test code 0.30 % = 6747311528) LYMPH % (test code = 29.3 % 736-9) MONO % (test code = 5.5 % 5905-5) EOS % (test code = 3.5 % 713-8) BASO % (test code = 0.7 % 706-2) GRAN MAT x10^3(ANC) 6.80 10*3/uL 1.88-7.09 (test code = 9148429175) IMM GRAN x10^3 (test 0.03 10*3/uL 0.00-0.06 code = 9298935733) LYMPH x10^3 (test code 3.28 10*3/uL 1.32-3.29 = 731-0) MONO x10^3 (test code 0.61 10*3/uL 0.33-0.92 = 742-7) EOS x10^3 (test code = 0.39 10*3/uL 0.03-0.39 711-2) BASO x10^3 (test code 0.08 10*3/uL 0.01-0.07 H = 704-7) Lab Interpretation Abnormal (test code = 08251-2) [facility] [id number] 16:49:00 Test Item Value Reference Range Interpretation Comments POCT PREG (test code = 1605) negative On board controls acceptable with present C Line (test code = 3574) POCT PREG LOT # (test code = 3572) [id number] POCT PREG TEST DATE (test 2023-11-26 code = 3576) Lab Interpretation (test code = Normal 37861-8) [facility]"
[2022-08-17] MEDS ORDERED: IBUPROFEN 400 MG TAB ONE (00:09)
[2022-08-17] MEDS ORDERED: methocarbamoL 500 MG TAB ONE (00:09)
[2022-08-17] MEDS ORDERED: KETOROLAC 30 MG/ML INJ ONE (00:40)
[2022-08-17] MEDS ORDERED: FAMOTIDINE 20 MG/2 ML VIAL IV ONE (00:40)
[2022-08-17] MEDS ORDERED: METOCLOPRAMIDE 10 MG/2mL INJ ONE (00:40)
[2022-08-17] MEDS ORDERED: ONDANSETRON 4 MG/2 ML VIAL ONE (00:40)
[2022-08-17] MEDS ORDERED: NA CHLORIDE 0.9% 1,000 ML ONE ×2 (00:40)
[2022-08-17 01:13] LABS: Hematocrit 40.1 % (36.0-45.0); Lymphocytes % 16.2 % (15.3-44.8); MCV 85.8 fL (80-100); MPV 8.3 fL (7.6-11.3); RBC Red Blood Cell Count 4.67 M/uL (3.86-4.86)
[2022-08-17 01:18] LABS: Bilirubin Total 0.4 mg/dL (0.2-1.0); Potassium 3.8 mEq/L (3.5-5.1); Protein, Total 8.4 g/dL (6.4-8.2)
[2022-08-17 01:29] LABS: SARS-CoV-2 Antigen Rapid Res Negative (Negative)
[2022-08-17 02:25] LABS: Specific Gravity > 1.030 (1.005-1.030); Urine Bacteria <20 /HPF (<20); Urine Bilirubin NEGATIVE (Negative); Urine Blood Negative (Negative); Urine Clarity Turbid (Clear); Urine Color Yellow (Yellow); Urine Glucose NEGATIVE (Negative); Urine Mucus 3+ /HPF (None Seen); Urine Protein TRACE (Negative); Urine RBC None Seen /HPF (None Seen); Urine Urobilinogen Normal (Normal); Urine pH 5.5 (5.0-7.0)
[2022-08-17 02:29] LABS: Specific Gravity > 1.030 (1.005-1.030)
--- NOTE | 2022-08-17 04:32 | EDPHYS ---
Physician Documentation [facility] Name: Mayda Argueta Age: 31 yrs Sex: Female : 1990 Arrival Date: 08/16/2022 Time: 22:22 Bed 5 Private MD: ED Physician Quirino Reynolds HPI: 08/16 22:27 This 31 yrs old Female presents to ER via Unassigned with complaints of sp4 Abdominal Pain, Back Pain, Vomiting. 08/17 04:23 31-year-old female presents with acute onset of vomiting, watery diarrhea, low-grade sp4 fever starting at 2 AM yesterday. Patient reported voluminous diarrhea multiple episodes of acidic and bilious vomiting. Diarrhea was nonbloody. QUAHOGGER: 08/16 22:44 LMP 08/01/2022 kd3 Historical: - Allergies: 22:43 No Known Allergies; kd3 - PMHx: 22:43 Anxiety; Kidney stones; depressive disorder; kd3 - PSHx: 22:43 section; Cholecystectomy; Appendectomy; kd3 - Immunization history:: Adult Immunizations up to date. - Social history:: Smoking status: Reported history of juuling and/or vaping. - Family history:: not pertinent. ROS: 08/17 04:23 Constitutional: Negative for chills, and weight loss, positive for fever Eyes: sp4 Negative for injury, pain, redness, and discharge, ENT: Negative for injury, pain, and discharge, Neck: Negative for injury, pain, and swelling, Cardiovascular: Negative for chest pain, palpitations, and edema, Respiratory: Negative for shortness of breath, cough, wheezing, and pleuritic chest pain, Abdomen/GI: Negative for abdominal pain, and constipation, positive for nausea vomiting and nonbloody diarrhea Back: Negative for injury and pain, : Negative for injury, bleeding, discharge, and swelling, MS/Extremity: Negative for injury and deformity, Skin: Negative for injury, rash, and discoloration, Neuro: Negative for headache, weakness, numbness, tingling, and seizure, Psych: Negative for depression, anxiety, Allergy/Immunology: Negative for hives, rash, and allergies Endocrine: Negative for neck swelling, polydipsia, polyuria, polyphagia, and weight changes Hematologic/Lymphatic: Negative for swollen nodes, abnormal bleeding, and unusual bruising Exam: 04:23 Constitutional: This is a well developed, well nourished patient who is awake, alert, sp4 pale, unwell appearing, nontoxic Head/Face: Normocephalic, atraumatic. Eyes: Pupils equal round and reactive to light, extra-ocular motions intact. Lids and lashes normal. Conjunctiva and sclera are not injected. Cornea within normal limits. Periorbital areas with no swelling, redness, or edema. ENT: Nares patent. No nasal discharge, no septal abnormalities noted. Tympanic membranes are normal and external auditory canals are clear. Oropharynx with no redness, swelling, or masses, exudates, or evidence of obstruction, uvula midline. Mucous membranes moist. Neck: Trachea midline, no thyromegaly or masses palpated, and no cervical lymphadenopathy. Supple, full range of motion without nuchal rigidity, or vertebral point tenderness. No Meningismus. Chest/axilla: Normal chest wall appearance and motion. Nontender with no deformity. No lesions are appreciated. Cardiovascular: Regular rate and rhythm with a normal S1 and S2. No gallops, murmurs, or rubs. Normal PMI, no JVD. No pulse deficits. Respiratory: Lungs have equal breath sounds bilaterally, clear to auscultation and percussion. No rales, rhonchi or wheezes noted. No increased work of breathing, no retractions or nasal flaring. Abdomen/GI: Soft, non-tender, with normal bowel sounds. No distension or tympany. No guarding or rebound. No evidence of tenderness throughout. Back: No spinal tenderness. No costovertebral tenderness. Skin: Warm, dry with normal turgor. Normal color with no rashes, no lesions, and no evidence of cellulitis. MS/ Extremity: Pulses equal, no cyanosis. Neurovascular intact. Full, normal range of motion. Neuro: Awake and alert, GCS 15, oriented to person, place, time, and situation. Cranial nerves II-XII grossly intact. Motor strength 5/5 in all extremities. Sensory grossly intact. Psych: Awake, alert, with orientation to person, place and time. Behavior, mood, and affect are within normal limits Vital Signs: 08/16 22:40 BP 115 / 83; Pulse 91; Resp 19; Temp 98.4(O); Pulse Ox 98% ; Weight 79.38 kg; Height 5 kd3 ft. 3 in. ; 08/17 01:00 BP 117 / 72; Pulse 69; Resp 19; Pulse Ox 98% ; vc1 02:00 BP 123 / 72; Pulse 85; Resp 19; Pulse Ox 100% ; vc1 04:00 BP 98 / 65; Pulse 81; Resp 19; Pulse Ox 96% ; vc1 08/16 22:40 Body Mass Index 31.00 (79.38 kg, 160.02 cm) kd3 MDM: 08/16 22:33 Patient medically screened. 4 08/17 04:23 Differential diagnosis: Acute Hemolysis Peptic Ulcer Perforated Ulcer sp4 Pyelonephritis. Data reviewed: vital signs, nurses notes, lab test result(s), CBC, electrolytes, hepatic panel, urinalysis, UPT: radiologic studies, CT scan. Consideration of Admission/Observation Escalation of care including admission/observation considered. ED course: Blood work has revealed mild elevation of WBC 12.6 with neutrophil predominance. Blood sugar 127. Otherwise urine negative. No signs of UTI. No other significant bladder abnormality. CT abdomen pelvis has revealed no acute intra-abdominal process, CT was enhanced with IV contrast and has revealed fatty infiltration of the liver, status postcholecystectomy and appendectomy . . 08/16 22:43 Order name: CBC with Diff; Complete Time: 01:32 4 08/16 22:43 Order name: CMP; Complete Time: 01: sp4 08/16 22:43 Order name: Lipase; Complete Time: :4 08/16 22:43 Order name: Urinalysis w/ reflexes; Complete Time: 04: sp4 08/16 22:44 Order name: SARS RAPID; Complete Time: 01:32 sp4 08/17 01:33 Order name: Test, Urine; Complete Time: 04:4 08/17 01:33 Order name: CT Abd/Pelvis - IV Contrast Only 4 08/16 22:43 Order name: IV Saline Lock; Complete Time: 00:31 sp4 08/16 22:43 Order name: Labs collected and sent; Complete Time: 00:31 4 Administered Medications: 00:42 Drug: NS 0.9% IV 1000 ml Route: IV; Rate: 1 bolus; Site: right antecubital; kd3 01:42 Follow up: IV Status: Completed infusion; IV Intake: 1000ml vc1 00:42 Drug: Famotidine IVP 20 mg Route: IVP; Site: right antecubital; kd3 02:00 Follow up: Response: No adverse reaction; Marked relief of symptoms vc1 00:42 Drug: Ondansetron IVP 4 mg Route: IVP; Site: right antecubital; kd3 04:37 Follow up: Response: No adverse reaction; Marked relief of symptoms vc1 00:42 Drug: Ketorolac IVP 30 mg Route: IVP; Site: right antecubital; kd3 02:00 Follow up: Response: No adverse reaction; Marked relief of symptoms; Pain is decreased vc1 00:42 Drug: NS 0.9% IV 1000 ml Route: IV; Rate: 250 ml/hr; Site: right antecubital; kd3 04:49 Follow up: IV Status: Completed infusion; IV Intake: 1000ml vc1 00:42 Drug: metoCLOPramide IVP 10 mg Route: IVP; Site: right antecubital; kd3 02:00 Follow up: Response: No adverse reaction; Marked relief of symptoms; Pain is decreased vc1 04:36 Drug: Diphenoxylate-Atropine PO 2 tabs Route: PO; vc1 04:37 Follow up: Response: Medication administered at discharge. vc1 Disposition Summary: 08/17/22 04:32 Discharge Ordered Location: Home sp4 Problem: new sp4 Symptoms: have improved sp4 Condition: Stable sp4 Diagnosis - Infectious gastroenteritis and colitis, unspecified sp4 - Viral gastroenteritis, nausea vomiting diarrhea. Mild to moderate dehydration sp4 Followup: sp4 - With: Private Physician - When: 7 - 10 days - Reason: Recheck today's complaints Discharge Instructions: - Discharge Summary Sheet sp4 - Viral Gastroenteritis, Adult sp4 Forms: - Medication Reconciliation Form sp4 Prescriptions: - Zofran 4 mg Oral Tablet - take 1 tablet by ORAL route every 6 hours As needed PRN nausea; 30 tablet; sp4 Refills: 0, Product Selection Permitted - Levsin 0.125 mg Oral Tablet - take 1 tablet by ORAL route every 6 hours PRN stomach ache and cramps; 40 sp4 tablet; Refills: 0, Product Selection Permitted - Lomotil 2.5-0.025 mg Oral Tablet - take 1 tablet by ORAL route every 6 hours As needed PRN diarrea; 30 tablet; sp4 Refills: 0, Product Selection Permitted Signatures: Dispatcher [employer] Lolly Hassan RN RN kd3 Selena Herrera RN RN vc1 Quirino Reynolds MD MD sp4
--- NOTE | 2022-08-17 04:32 | ER ---
Nurse's Notes [facility] Name: Mayda Argueta Age: 31 yrs Sex: Female : 1990 Arrival Date: 08/16/2022 Time: 22:22 Bed 5 Private MD: Diagnosis: Infectious gastroenteritis and colitis, unspecified;Viral gastroenteritis, nausea vomiting diarrhea. Mild to moderate dehydration Presentation: 08/16 22:40 Chief complaint: Patient states: I have a stomach bug. I cannot keep anything down. I kd3 have been vomiting since 2 this morning and i have lots of pain in my back and stomach. I also have diarrhea. Coronavirus screen: Vaccine status: Patient reports being unvaccinated. Ebola Screen: No symptoms or risks identified at this time. Initial Sepsis Screen: Does the patient meet any 2 criteria? No. Patient's initial sepsis screen is negative. Does the patient have a suspected source of infection? No. Patient's initial sepsis screen is negative. Risk Assessment: Do you want to hurt yourself or someone else? Patient reports no desire to harm self or others. Onset of symptoms was August 16, 2022. 22:40 Method Of Arrival: Ambulatory kd3 22:40 Acuity: CATHY 3 kd3 Triage Assessment: 22:43 General: Appears uncomfortable, Behavior is calm, cooperative. Pain: Complains of pain kd3 in left low back and right low back. GI: Abdomen is distended. 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 - Social history:: Smoking status: Reported history of juuling and/or vaping. - Family history:: not pertinent. Screenin/23 01:02 [facility] ED Fall Risk Assessment (Adult) History of falling in the last 3 months, vc1 including since admission No falls in past 3 months (0 pts) Confusion or Disorientation No (0 pts) Intoxicated or Sedated No (0 pts) Impaired Gait No (0 pts) Mobility Assist Device Used No (0 pt) Altered Elimination No (0 pt) Score/Fall Risk Level 0 - 2 = Low Risk Oriented to surroundings, Maintained a safe environment, Educated pt \T\ family on fall prevention, incl call for assistance when getting out of bed. Abuse screen: Denies threats or abuse. Nutritional screening: No deficits noted. Tuberculosis screening: No symptoms or risk factors identified. Assessment: 00:00 Reassessment: No changes from previously documented assessment. Patient and/or family vc1 updated on plan of care and expected duration. Pain level reassessed. Patient is alert, oriented x 3, equal unlabored respirations, skin warm/dry/pink. 01:00 Reassessment: No changes from previously documented assessment. Patient and/or family vc1 updated on plan of care and expected duration. Pain level reassessed. Patient is alert, oriented x 3, equal unlabored respirations, skin warm/dry/pink. 02:00 Reassessment: No changes from previously documented assessment. Patient and/or family vc1 updated on plan of care and expected duration. Pain level reassessed. Patient is alert, oriented x 3, equal unlabored respirations, skin warm/dry/pink. 03:00 Reassessment: No changes from previously documented assessment. Patient and/or family vc1 updated on plan of care and expected duration. Pain level reassessed. Patient is alert, oriented x 3, equal unlabored respirations, skin warm/dry/pink. 04:00 Reassessment: No changes from previously documented assessment. Patient and/or family vc1 updated on plan of care and expected duration. Pain level reassessed. Patient is alert, oriented x 3, equal unlabored respirations, skin warm/dry/pink. 04:38 Reassessment: Patient and/or family updated on plan of care and expected duration. Pain vc1 level reassessed. Patient is alert, oriented x 3, equal unlabored respirations, skin warm/dry/pink. Patient states feeling better. Patient states symptoms have improved. Vital Signs: 08/16 22:40 BP 115 / 83; Pulse 91; Resp 19; Temp 98.4(O); Pulse Ox 98% ; Weight 79.38 kg; Height 5 kd3 ft. 3 in. ; 08/17 01:00 BP 117 / 72; Pulse 69; Resp 19; Pulse Ox 98% ; vc1 02:00 BP 123 / 72; Pulse 85; Resp 19; Pulse Ox 100% ; vc1 04:00 BP 98 / 65; Pulse 81; Resp 19; Pulse Ox 96% ; vc1 08/16 22:40 Body Mass Index 31.00 (79.38 kg, 160.02 cm) kd3 ED Course: 08/16 22:25 Patient arrived in ED. ag3 22:27 Quirino Reynolds MD is Attending Physician. sp4 22:43 Triage completed. kd3 22:43 Arm band placed on right wrist. kd3 08/17 00:31 SARS RAPID Sent. mb9 00:32 Inserted saline lock: 20 gauge in right antecubital area, using aseptic technique. jw7 Blood collected. 00:43 Selena Herrera, TK is Primary Nurse. vc1 01:02 Patient has correct armband on for positive identification. Bed in low position. Call vc1 light in reach. Pulse ox on. NIBP on. 02:19 Urinalysis w/ reflexes Sent. kd3 02:19 Test, Urine Sent. kd3 02:54 CT Abd/Pelvis - IV Contrast Only In Process Unspecified. EDMS 04:48 No provider procedures requiring assistance completed. IV discontinued, intact, vc1 bleeding controlled, No redness/swelling at site. Pressure dressing applied. Administered Medications: 00:42 Drug: NS 0.9% IV 1000 ml Route: IV; Rate: 1 bolus; Site: right antecubital; kd3 01:42 Follow up: IV Status: Completed infusion; IV Intake: 1000ml vc1 00:42 Drug: Famotidine IVP 20 mg Route: IVP; Site: right antecubital; kd3 02:00 Follow up: Response: No adverse reaction; Marked relief of symptoms vc1 00:42 Drug: Ondansetron IVP 4 mg Route: IVP; Site: right antecubital; kd3 04:37 Follow up: Response: No adverse reaction; Marked relief of symptoms vc1 00:42 Drug: Ketorolac IVP 30 mg Route: IVP; Site: right antecubital; kd3 02:00 Follow up: Response: No adverse reaction; Marked relief of symptoms; Pain is decreased vc1 00:42 Drug: NS 0.9% IV 1000 ml Route: IV; Rate: 250 ml/hr; Site: right antecubital; kd3 04:49 Follow up: IV Status: Completed infusion; IV Intake: 1000ml vc1 00:42 Drug: metoCLOPramide IVP 10 mg Route: IVP; Site: right antecubital; kd3 02:00 Follow up: Response: No adverse reaction; Marked relief of symptoms; Pain is decreased vc1 04:36 Drug: Diphenoxylate-Atropine PO 2 tabs Route: PO; vc1 04:37 Follow up: Response: Medication administered at discharge. vc1 Medication: 01:02 VIS not applicable for this client. vc1 Intake: 01:42 IV: 1000ml; Total: 1000ml. vc1 04:49 IV: 1000ml; Total: 2000ml. vc1 Outcome: 04:32 Discharge ordered by . sp4 04:48 Discharged to home ambulatory, with friend. vc1 04:48 Condition: improved 04:48 Discharge instructions given to patient, Instructed on discharge instructions, follow up and referral plans. medication usage, clear liquid diet for 24 hours Demonstrated understanding of instructions, follow-up care, medications, Prescriptions given X 3. 04:50 Patient left the ED. vc1 Signatures: Dispatcher [employer] Rasheeda Owens Kyli RN RN kd3 Selena Herrera RN RN vc1 Betty Flanagan Mary Beth RN RN mb9 Quirino Reynolds MD MD sp4
[2022-08-17] MEDS ORDERED: DIPHENOX/ATROP SULF 1 TAB PO ONE (04:39)
[2022-08-17 05:14] VITALS: TEMP 98.4
[2022-08-17 05:17] VITALS: BP 98/65; O2SAT 96
--- NOTE | 2022-08-17 15:18 | RAD REPORT ---
EXAM DESCRIPTION: Abdomen Pelvis W Contrast 08/17/2022 3:32 AM CDT CLINICAL HISTORY: 31 years, Female, ABD PAIN COMPARISON: None. TECHNIQUE: Contrast-enhanced images of the abdomen and pelvis were performed utilizing 5 mm slice th ickness at 5 mm interval reconstruction from the lung bases to the ischial tuberosities after the adm inistration of IV contrast. In addition multiplanar reformats in the coronal and sagittal plane were obtained and reviewed. This exam was performed according to our departmental dose-optimization protocol, which includes auto mated exposure control, adjustment of the mA and/or kV according to patient size and/or use of iterat noel reconstruction technique. FINDINGS: The lung bases demonstrate to be clear. The liver demonstrate decreased attenuation corresponding to fatty infiltration. Otherwise the liver, pancreas, spleen and adrenal glands demonstrate to be unremarkable, no focal lesions are noted. Surg ical clips within the gallbladder fossa correspond to previous cholecystectomy. No significant biliar y duct dilatation. The kidneys demonstrate normal uptake of contrast media. No evidence for nephrolithiasis and/or hydro nephrosis. Grossly the unopacified stomach, small bowel and large bowel demonstrate to be within normal limits. There is no evidence for bowel dilatation/or free air. The appendix was not visualized suggesting previous appendectomy. The left site colon demonstrate to be unremarkable. The urinary bladder demonstrate to be unremarkable. The uterus demonstrate to be within normal limi ts. There are no adnexal masses. The aorta demonstrate to be normal. There is no retroperitoneal lymphadenopathy. There is no evidence for ascites/or abnormal fluid collections. The rest of the soft tissue and bony structures are within normal limits. IMPRESSION: No acute intra-abdominal process. Fatty infiltration of the liver. Status post cholecystectomy and appendectomy. Electronically signed by: Keny Garcia MD 08/17/2022 3:34 AM CDT Due to temporary technical issues with the PACS/Fluency reporting system, reports are being signed by the in house radiologists without review as a courtesy to insure prompt reporting. The interpreting radiologist is fully responsible for the content of the report.
== END 2022-08-17 04:50 | disposition home or self-care (01) ==
LOC: ER 22:22
DX: A08.4 Viral intestinal infection, unspecified (principal); E86.0 Dehydration; Z20.822 Contact with and (suspected) exposure to COVID-19
CPT/HCPCS: 85025; 81001; 36415; 81025; 83690; 80053; 74177; 87811; Q9967; J2765; J2405; J7030 ×2

== ENCOUNTER 2024-07-18 10:28 | Emergency (ER) | payer OTHER ==
--- OUTSIDE RECORDS SUMMARY | 2024-07-18 10:33 | XMS REPORT | Continuity of Care Document ---
Author Name Unknown Address [address] [facility] [address] [place] [address] [facility] [place] Address [address] [facility] [address] [place] [address] Care Team Providers Care Computer Application Developer Name Role Phone Honey CHAUHAN, Dee Restrepo Primary Care Physician TANIA WOOD Attending Clinician Unavailable BONIFACIO MULTANI Attending Clinician UnavailBONIFACIO Schaefer Attending Clinician UnavailTania Gunderson DNP Attending Clinician [phone] Virgie Olivares Attending Clinician UnavailLinda Bucio RN Attending Clinician Un available ABDULKADIR KAHN Attending Clinician Unavail able Abdulkadir Kahn DPM Attending Clinician + [phone] Kaycee Hector RN Attending Clinician Unavailable Doctor Unassigned, [place] Attending Clinician U JUANA Singletary Attending Clinician Unav Juana Aguiar MD Attending Clinician + JANIA Attending Clinician Unavailable AMINATA MARTIN Attending Clinician Unavailable TATIANA CUEVAS Attending Clinician Unavladislav Brewster MD, Keily Pro Attending Clinician [phone] JUAN R MATHEWS Attending Clinician Unavailable CORTES REGALADO Attending Clinician Unavailable Cortes Mohamud Attending Clinician [phone] Lab, Ang - Db Attending Clinician Unavailable SONG BARKSDALE Attending Clinician Unavailable Song Barksdale MD Attending Clinician [phone] Provider, [facility] Attending Clinician Un available Luiz DNPGilda R Attending Clinician [phone] LUIZ, GILDA R Attending Clinician Unavailab jens Franco SQL DATABASE PROGRAMMER, Meliza A Attending Clinician [phone] Yury Troy MD Attending Clinician [phone] YURY TROY Attending Clinician Unavailable LUCIA BALDWIN Attending Clinician Unavailable Denny PHD, Lucia Attending Clinician [phone] Slick Sánchez DO Attending Clinician [phone] PAUL URIAS Attending Clinician Unarita Gill, [facility] Attending Clinician UnavailJosé Dale MD Attending Clinician [phone] JOSÉ SÁNCHEZ Attending Clinician Unavailable JOSÉ SÁNCHEZ Attending Clinician Unavailable 1, [facility] Attending Clinician Unavailable LUCY AMAYA Attending Clinician Unavailable Room, [facility] Attending Clinician Unavailable Harsh BLOCK, Geri Robbins Attending Clinician [phone] Timmy Kwon MD Attending Clinician [phone] KEILY BREWSTER Attending Clinician Unavailmorteza Ramosb, [facility] Main Attending Clinician Unavailmargret Rosa MD, Glenny Attending Clinician [phone] Ultrasound, [facility] Attending Clinician UnavailGERI Hsieh Attending Clinician Unavailable 2, [facility] Attending Clinician Unavailable Ultrasound, [facility] Attending Clinician UnavailAnn Kaur MD Attending Clinician [phone] ANN KITCHEN Attending Clinician Unavailable JUANA ARMSTRONG Admitting Clinician Unavladislav DYKES Admitting Clinician Unavailable José Sánchez MD Admitting Clinician [phone] JOSÉ SÁNCHEZ Admitting Clinician Unavailable Payers Payer Name Policy Type Policy Number Effective Date Expirati on Date Source [facility] [id number] 2019 00:00:00 [facility] [id number] 2022 00:00:00 [facility] [id number] 2023 00:00:00 [facility] FEDERAL SERVICES - SELECT (PPO) [id number] 2020 00:00:00 Problems Condition Name Condition Details Condition Category Status Onset Date Resolution Date Last Treatment Date Treating Clinician Comments Source Generalize d anxiety disorder Generalize d Anxiety Disorder Problem Active 11-23 00:00: 00 [facility] 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 Error [facility] Cholestasi s of Cholestasi s of Disease Resolve d 7-07 00:00: 00 2024-06-27 00:00:00 2024-06-27 10:12:38 [facility] 37 weeks gestation of 37 weeks gestation of Disease Resolve d 7-06 00:00: 00 2024-06-27 00:00:00 2024-06-27 10:12:36 [facility] Obesity (BMI 30-39.9) Obesity (BMI 30-39.9) Disease Resolve d 2018-03 1-22 00:00: 00 2024-06-27 00:00:00 2024-06-27 10:12:35 [facility] depression depression Disease Resolve d 4-04 00:00: 00 2024-06-27 00:00:00 2024-06-27 10:12:34 [facility] Calculus of gallbladde r without cholecysti tis without obstructio n Calculus of gallbladde r without cholecysti tis without obstructio n Disease Resolve d 2017-03 0-05 00:00: 00 2024-06-27 00:00:00 2024-06-27 10:12:33 Overview: Formattin g of this note might be different from the original. Added automatic ally from request for surgery [id number] [facility] Cholelithi asis Cholelithi asis Disease Resolve d 2017-03 0-02 00:00: 00 2024-06-27 00:00:00 2024-06-27 10:12:30 [facility] Cholestasi s of in third trimester Cholestasi s of in third trimester Disease Resolve d 0 8-21 00:00: 00 2024-06-27 00:00:00 2024-06-27 10:12:29 [facility] Depression during in third trimester Depression during in third trimester Disease Resolve d 8-03 00:00: 00 2024-06-27 00:00:00 2024-06-27 10:12:28 [facility] Anemia of mother in , antepartum Anemia of mother in , antepartum Disease Resolve d 0 6-19 00:00: 00 2024-06-27 00:00:00 2024-06-27 10:12:27 [facility] High-risk in third trimester High-risk in third trimester Disease Resolve d 2017-0 2-23 00:00: 00 2024-06-27 00:00:00 2024-06-27 10:12:23 [facility] Maternal condyloma acuminatum affecting , antepartum Maternal condyloma acuminatum affecting , antepartum Disease Resolve d 0 1-23 00:00: 00 2024-06-27 00:00:00 2024-06-27 10:12:22 [facility] Oral contracept noel use Oral contracept noel use Disease Resolve d 2017-03 0-12 00:00: 00 2019-10-01 00:00:00 2019-10-01 14:08:35 [facility] Abnormal LFTs Abnormal LFTs Disease Resolve d 2017-03 0-03 00:00: 00 2019-10-01 00:00:00 2019-10-01 14:15:27 [facility] delivery delivered delivery delivered Disease Resolve d 0 -09 00:00: 00 2019-10-01 00:00:00 2019-10-01 14:09:12 [facility] Right upper quadrant abdominal pain Right upper quadrant abdominal pain Disease Resolve d 12-03 00:00: 00 2019-10-01 00:00:00 2019-10-01 14:09:06 [facility] Hemorrhoid s during , antepartum Hemorrhoid s during , antepartum Disease Resolve d 0 5-22 00:00: 00 2019-10-01 00:00:00 2019-10-01 14:09:22 [facility] Abnormal maternal glucose tolerance, antepartum Abnormal maternal glucose tolerance, antepartum Disease Resolve d 0 1-27 00:00: 00 2019-10-01 00:00:00 2019-10-01 14:09:17 [facility] 37 weeks gestation of 37 weeks gestation of Disease Resolve d 12-03 00:00: 00 2018-01-06 00:00:00 2018-01-06 15:27:43 [facility] Insufficie nt weight gain during in third trimester Insufficie nt weight gain during in third trimester Disease Resolve d 0 8-28 00:00: 00 2018-01-06 00:00:00 2018-01-06 15:27:46 [facility] Cholestasi s of Cholestasi s of Disease Resolve d 0 12-03 00:00: 00 2017-12-03 00:00:00 2017-12-03 20:17:19 [facility] Abdominal pain affecting Abdominal pain affecting Disease Resolve d 04 00:00: 00 2017-12-03 00:00:00 2017-12-03 20:17:15 [facility] Low lying placenta nos or without hemorrhage , unspecifie d trimester Low lying placenta nos or without hemorrhage , unspecifie d trimester Disease Resolve d 0 5-22 00:00: 00 2017-12-03 00:00:00 2017-12-03 20:17:10 [facility] Missed menses Missed menses Disease Resolve d 04-19 00:00: 00 2017-12-03 00:00:00 2017-12-03 20:17:07 [facility] Encounter for supervisio n of normal first in first trimester Encounter for supervisio n of normal first in first trimester Disease Resolve d 04-19 00:00: 00 2017-06-14 00:00:00 2017-06-14 11:59:25 [facility] Allergies, Adverse Reactions, Alerts Allergy Name Allergy Type Status Severity Reaction(s) Onset Date Inactive Date Treating Clinician Comments Source NO KNOWN ALLERGIE S SYSTEMIC Active MHEOUT NO KNOWN ALLERGIE S SYSTEMIC Active MHEOUT NO KNOWN ALLERGIE S Drug Class Active [facility] Family History Family Member Diagnosis Comments Start Date Stop Date Sourc e Natural father No Significant Medical Problems [facility] Maternal grandmother Diabetes [facility] Natural mother No Significant Medical Problems [facility] Family member Arthritis Univer [facility] Family member Asthma Univer [facility] Family member defects [facility] member Cancer Un[facility] Family member Colon Cancer [facility] member Depression [facility] member Genetic Univer [facility] Family member Heart Univer [facility] Family member High cholesterol [facility] Family member Hypertension [facility] member Mental retardation [facility] Family member Neurological [facility] Osteoporosis [facility] Other - see comments [facility] Family member Ovarian Cancer [facility] member [facility]ry [facility] Social History Social Habit Start Date Stop Date Quantity Comments Source Gender identity Tha sean Chu Sexual orientation [facility] ASSERTION [facility] Alcoholic beverage intake 2024-06-27 00:00:00 2024-06-27 00:00:00 Current drinker of alcohol (finding) [facility] Exposure to SARS-CoV-2 (event) 2022-05-29 00:00:00 2022-06-08 11:57:00 Not sure [facility] History of Social function 2022-03-11 00:00:00 2022-03-11 00:00:00 [facility] Alcohol intake 2022-03-11 00:00:00 2022-03-11 00:00:00 Ex-drinker (finding) [facility] Tobacco use and exposure 2022-03-11 00:00:00 2022-03-11 00:00:00 Smokeless tobacco non-user [facility] Alcohol Comment 2017-04-19 00:00:00 2017-04-19 00:00:00 occas [facility] Sex assigned at 1990 00:00:00 1990 00:00:00 [facility] Smoking Status Start Date Stop Date Source Tobacco smoking consumption unknown [facility] Never smoked tobacco [facility] Medications Ordered Medication Name Filled Medication Name Start Date Stop Date Current Medication? Ordering Clinician Indication Dosage Frequency Signature (SIG) Comments Components Source zolpidem 5 mg tablet 05-18 00:00: 00 Yes 7.5mg Take 1.5 tablets by mouth. [facility] ketorolac (Toradol) tablet 10 mg ketorolac (Toradol) tablet 10 mg 2023-03 0 14:45: 26 01-29 14:44 :26 No [id number] 10mg Q6H Dora [facility] clindamycin (Cleocin) 300 MG capsule clindamycin (Cleocin) 300 MG capsule 2023-03 030 00:00: 00 02-03 23:59 :00 No 300mg Q.5D Take 1 capsule by mouth in the morning and 1 capsule in the evening. Do all this for 10 days. Maria Del Carmen Solo [facility] cephalexin (Keflex) 500 MG capsule cephalexin (Keflex) 500 MG capsule 2023-03 014 00:00: 00 01-22 23:59 :00 No 500mg Q.5D Take 1 capsule by mouth in the morning and 1 capsule in the evening. Do all this for 14 days. Start after foot surgery. Maria Del Carmen Chu HYDROcodone -acetaminop hen ([place]) 10-325 MG tablet HYDROcodone -acetaminop hen ([place]) 10-325 MG tablet 2023-03 0-14 00:00: 00 01-15 23:59 :00 No [id number] 1{tbl} Q6H Take 1 tablet by mouth every 6 hours if needed for severe pain (7-10) for up to 7 days. For pain as needed after surgery Maria Del Carmen Chu fluconazole (Diflucan) 100 MG tablet fluconazole (Diflucan) 100 MG tablet 2023-03 0-14 00:00: 00 01-11 23:59 :00 No 100mg QD Take 1 tablet by mouth 1 time each day for 3 days. To start taking after surgery with antibiotic s for prophylaxi s prevention Maria Del Carmen Chu methylPREDN ISolone (Medrol Dospak) 4 MG tablets methylPREDN ISolone (Medrol Dospak) 4 MG tablets 12-20 00:00: 00 12-27 23:59 :00 No Follow schedule on package instructio ns Maria Del Carmen Chu meloxicam (Mobic) 15 MG tablet meloxicam (Mobic) 15 MG tablet 09-13 00:00: 00 10-13 23:59 :00 No 15mg QD Take 1 tablet by mouth 1 time each day. Only take if needed for foot pain Maria Del Carmen Chu meloxicam (Mobic) 15 MG tablet meloxicam (Mobic) 15 MG tablet 08-16 00:00: 00 09-15 23:59 :00 No [id number] 15mg QD Take 1 tablet by mouth 1 time each day. [facility] Del Carmen Chu traMADol (Ultram) 50 MG tablet traMADol (Ultram) 50 MG tablet 08-16 00:00: 00 08-19 23:59 :00 No [id number] 50mg Q6H Take 1 tablet by mouth every 6 hours if needed for severe pain (7-10) for up to 3 days. Maria Del Carmen Chu ketorolac (TORADOL) injection 30 mg 3-14 18:30: 00 06-08 17:48 :00 No 30mg 30 mg, Slow IV Push, ONCE, 1 dose, On Tue06/08/22 at 1330, Routine [facility] ondansetron (ZOFRAN (PF)) injection 4 mg 06-08 17:15: 00 06-08 17:03 :00 No 4mg 4 mg, Slow IV Push, ONCE, 1 dose, On Tue06/08/22 at 1215, PAZ [facility] morpHINE (4 mg/mL) injection 4 mg 06-08 17:15: 00 06-08 17:06 :00 No 4mg 4 mg, Slow IV Push, ONCE, 1 dose, On Tue06/08/22 at 1215, STAT [facility] ondansetron 4 mg disintegrat ing tablet 06-08 00:00: 00 Yes [id number] 4mg Take 1 tablet by mouth every 8 (eight) hours as needed for Nausea and Vomiting (N/V). [facility] tamsulosin 0.4 mg 24 hr capsule 06-08 00:00: 00 Yes [id number] .4mg Take 1 capsule by mouth at bedtime. [facility] ketorolac 10 mg tablet 06-08 00:00: 00 Yes [id number] 10mg Take 1 tablet by mouth every 6 (six) hours as needed for Pain (scale 4-6). [facility] buPROPion XL 150 mg 24 hr tablet 11-25 00:00: 00 03-11 00:00 :00 No [id number] 150mg Take 1 tablet by mouth in the morning. [facility] busPIRone 5 mg tablet 11-25 00:00: 00 03-11 00:00 :00 No [id number] 5mg Take 1 tablet by mouth in the morning and 1 tablet in the evening. [facility] traZODone 50 mg tablet 11-25 00:00: 00 03-11 00:00 :00 No [id number] 75mg Take 1.5 tablets by mouth at bedtime. [facility] cephALEXin 500 mg capsule 6-17 00:00: 00 11-25 00:00 :00 No [id number] 500mg Take 1 capsule by mouth 4 (four) times daily. [facility] miSOPROStoL 200 mcg tablet 2019-03 2-16 00:00: 03-11 00:00 :00 No [id number] 1 po the evening prior to the procedure [facility] PNV,calcium 72-iron,car b-folic ( PLUS) 29 mg iron- 1 mg Tab 2019-03 0-22 00:00: 03-11 00:00 :00 No [id number] 1{tbl} Take 1 tablet by mouth daily. [facility] PNV,calcium 72-iron,car b-folic ( PLUS) 29 mg iron- 1 mg Tab 2019-03 0- 00:00: 03-11 00:00 :00 No [id number] 1{tbl} Take 1 tablet by mouth daily. [facility] docusate calcium 240 mg capsule 7-09 00:00: 03-11 00:00 :00 No [id number] 240mg Take 1 capsule by mouth once daily as needed for Constipati on. [facility] methylpredn isolone 4 mg tablets in a dose pack FOLLOW PACKAGE DIRECTIONS methylpredn isolone 4 mg tablets in a dose pack FOLLOW PACKAGE DIRECTIONS No methylpred nisolone 4 mg tablets in a dose pack FOLLOW PACKAGE DIRECTIONS [facility] venlafaxine 37.5 mg tablet TAKE 1 TABLET BY MOUTH ONCE DAILY (STOP LEXAPRO) venlafaxine 37.5 mg tablet TAKE 1 TABLET BY MOUTH ONCE DAILY (STOP LEXAPRO) No venlafaxin e 37.5 mg tablet TAKE 1 TABLET BY MOUTH ONCE DAILY (STOP LEXAPRO) [facility] venlafaxine 75 mg tablet TAKE 1 TABLET BY MOUTH ONCE DAILY (INCREASE IN DOSAGE) venlafaxine 75 mg tablet TAKE 1 TABLET BY MOUTH ONCE DAILY (INCREASE IN DOSAGE) No venlafaxin e 75 mg tablet TAKE 1 TABLET BY MOUTH ONCE DAILY (INCREASE IN DOSAGE) [facility] buspirone 10 mg tablet TAKE 1 TABLET BY MOUTH TWICE DAILY buspirone 10 mg tablet TAKE 1 TABLET BY MOUTH TWICE DAILY No buspirone 10 mg tablet TAKE 1 TABLET BY MOUTH TWICE DAILY [facility] cetirizine 10 mg tablet TAKE 1 TABLET BY MOUTH EVERY DAY cetirizine 10 mg tablet TAKE 1 TABLET BY MOUTH EVERY DAY No cetirizine 10 mg tablet TAKE 1 TABLET BY MOUTH EVERY DAY [facility] cyclobenzap rine 5 mg tablet TAKE 1 TABLET BY MOUTH THREE TIMES DAILY NEEDED FOR MUSCLE SPASMS cyclobenzap rine 5 mg tablet TAKE 1 TABLET BY MOUTH THREE TIMES DAILY NEEDED FOR MUSCLE SPASMS No cyclobenza kelly 5 mg tablet TAKE 1 TABLET BY MOUTH THREE TIMES DAILY NEEDED FOR MUSCLE SPASMS [facility] escitalopra m 5 mg tablet TAKE 1 TABLET BY MOUTH EVERY DAY AT BEDTIME escitalopra m 5 mg tablet TAKE 1 TABLET BY MOUTH EVERY DAY AT BEDTIME No escitalopr am 5 mg tablet TAKE 1 TABLET BY MOUTH EVERY DAY AT BEDTIME [facility] hydroxyzine HCl 25 mg tablet TAKE 1 TABLET BY MOUTH EVERY 8 HOURS NEEDED FOR ANXIETY hydroxyzine HCl 25 mg tablet TAKE 1 TABLET BY MOUTH EVERY 8 HOURS NEEDED FOR ANXIETY No hydroxyzin e HCl 25 mg tablet TAKE 1 TABLET BY MOUTH EVERY 8 HOURS NEEDED FOR ANXIETY [facility] methylpredn isolone 4 mg tablets in a dose pack FOLLOW PACKAGE DIRECTIONS methylpredn isolone 4 mg tablets in a dose pack FOLLOW PACKAGE DIRECTIONS No methylpred nisolone 4 mg tablets in a dose pack FOLLOW PACKAGE DIRECTIONS [facility] trazodone 50 mg tablet TAKE 1 AND 1/2 TABLETS BY MOUTH AT BEDTIME trazodone 50 mg tablet TAKE 1 AND 1/2 TABLETS BY MOUTH AT BEDTIME No trazodone 50 mg tablet TAKE 1 AND 1/2 TABLETS BY MOUTH AT BEDTIME [facility] venlafaxine 37.5 mg tablet TAKE 1 TABLET BY MOUTH ONCE DAILY (STOP LEXAPRO) venlafaxine 37.5 mg tablet TAKE 1 TABLET BY MOUTH ONCE DAILY (STOP LEXAPRO) No venlafaxin e 37.5 mg tablet TAKE 1 TABLET BY MOUTH ONCE DAILY (STOP LEXAPRO) [facility] venlafaxine 75 mg tablet TAKE 1 TABLET BY MOUTH ONCE DAILY (INCREASE IN DOSAGE) venlafaxine 75 mg tablet TAKE 1 TABLET BY MOUTH ONCE DAILY (INCREASE IN DOSAGE) No venlafaxin e 75 mg tablet TAKE 1 TABLET BY MOUTH ONCE DAILY (INCREASE IN DOSAGE) [facility] bupropion HCl XL 150 mg 24 hr tablet, extended release TAKE 1 TABLET BY MOUTH DAILY bupropion HCl XL 150 mg 24 hr tablet, extended release TAKE 1 TABLET BY MOUTH DAILY No bupropion HCl XL 150 mg 24 hr tablet, extended release TAKE 1 TABLET BY MOUTH DAILY [facility] buspirone 10 mg tablet TAKE 1 TABLET BY MOUTH TWICE DAILY buspirone 10 mg tablet TAKE 1 TABLET BY MOUTH TWICE DAILY No buspirone 10 mg tablet TAKE 1 TABLET BY MOUTH TWICE DAILY [facility] buspirone 5 mg tablet TAKE 1 TABLET BY MOUTH IN THE MORNING AND IN THE EVENING buspirone 5 mg tablet TAKE 1 TABLET BY MOUTH IN THE MORNING AND IN THE EVENING No buspirone 5 mg tablet TAKE 1 TABLET BY MOUTH IN THE MORNING AND IN THE EVENING [facility] cetirizine 10 mg tablet TAKE 1 TABLET BY MOUTH EVERY DAY cetirizine 10 mg tablet TAKE 1 TABLET BY MOUTH EVERY DAY No cetirizine 10 mg tablet TAKE 1 TABLET BY MOUTH EVERY DAY [facility] cyclobenzap rine 5 mg tablet TAKE 1 TABLET BY MOUTH THREE TIMES DAILY NEEDED FOR MUSCLE SPASMS cyclobenzap rine 5 mg tablet TAKE 1 TABLET BY MOUTH THREE TIMES DAILY NEEDED FOR MUSCLE SPASMS No cyclobenza kelly 5 mg tablet TAKE 1 TABLET BY MOUTH THREE TIMES DAILY NEEDED FOR MUSCLE SPASMS [facility] escitalopra m 5 mg tablet TAKE 1 TABLET BY MOUTH EVERY DAY AT BEDTIME escitalopra m 5 mg tablet TAKE 1 TABLET BY MOUTH EVERY DAY AT BEDTIME No escitalopr am 5 mg tablet TAKE 1 TABLET BY MOUTH EVERY DAY AT BEDTIME [facility] hydroxyzine HCl 25 mg tablet TAKE 1 TABLET BY MOUTH EVERY 8 HOURS NEEDED FOR ANXIETY hydroxyzine HCl 25 mg tablet TAKE 1 TABLET BY MOUTH EVERY 8 HOURS NEEDED FOR ANXIETY No hydroxyzin e HCl 25 mg tablet TAKE 1 TABLET BY MOUTH EVERY 8 HOURS NEEDED FOR [facility]XIETY [facility] Immunizations Ordered Immunization Name Filled Immunization Name Date Status Comments Source TDAP 2023-04-03 00:00:00 Completed [facility] Influenza Virus Vaccine Quad .5 mL IM 6+ MO (FLUZONE/FLULAVAL/F LUARIX) 2023-04-03 00:00:00 Completed [facility] MMR 2023-04-03 00:00:00 Completed [facility] TDAP 2022-06-16 00:00:00 Completed [facility] Influenza Virus Vaccine Quad .5 mL IM 6+ MO (FLUZONE/FLULAVAL/F LUARIX) 2022-06-16 00:00:00 Completed [facility] MMR 2022-06-16 00:00:00 Completed [facility] TDAP 2021-03-28 00:00:00 Completed [facility] Influenza Virus Vaccine Quad .5 mL IM 6+ MO (FLUZONE/FLULAVAL/F LUARIX) 2021-03-28 00:00:00 Completed [facility] MMR 2021-03-28 00:00:00 Completed [facility] TDAP 2021-02-23 00:00:00 Completed [facility] Influenza Virus Vaccine Quad .5 mL IM 6+ MO (FLUZONE/FLULAVAL/F LUARIX) 2021-02-23 00:00:00 Completed [facility] MMR 2021-02-23 00:00:00 Completed [facility] TDAP 2020-09-12 00:00:00 Completed [facility] Influenza Virus Vaccine Quad .5 mL IM 6+ MO (FLUZONE/FLULAVAL/F LUARIX) 2020-09-12 00:00:00 Completed [facility] MMR 2020-09-12 00:00:00 Completed [facility] TDAP (ADACEL) VACCINE 2019-08-09 00:00:00 Completed [facility] TDAP (ADACEL) VACCINE 2019-08-09 00:00:00 Completed [facility] TDAP (ADACEL) VACCINE 2019-08-09 00:00:00 Completed [facility] TDAP (ADACEL) VACCINE 2019-08-09 00:00:00 Completed [facility] Influenza Virus Vaccine Quad .5 mL IM 6+ MO (FLUZONE/FLULAVAL/F LUARIX) 2019-03-16 00:00:00 Completed [facility] Influenza Virus Vaccine Quad .5 mL IM 6+ MO 2019-03-16 00:00:00 Completed [facility] Influenza Virus Vaccine Quad .5 mL IM 6+ MO 2019-03-16 00:00:00 Completed [facility] Influenza Virus Vaccine Quad .5 mL IM 6+ MO 2019-03-16 00:00:00 Completed [facility] Influenza Virus Vaccine Quad .5 mL IM 6+ MO (FLUZONE/FLULAVAL/F LUARIX) 2018-01-06 00:00:00 Completed [facility] MMR 2018-01-06 00:00:00 Completed [facility] Influenza Virus Vaccine Quad .5 mL IM 6+ MO 2018-01-06 00:00:00 Completed [facility] MMR 2018-01-06 00:00:00 [facility] [facility] Virus Vaccine Quad .5 mL IM 6+ MO 2018-01-06 00:00:00 Completed [facility] MMR 2018-01-06 00:00:00 Completed [facility] Influenza Virus Vaccine Quad .5 mL IM 6+ MO 2018-01-06 00:00:00 Completed [facility] MMR 2018-01-06 00:00:00 Completed [facility] TDAP 2017-10-11 00:00:00 Completed [facility] TDAP 2017-10-11 00:00:00 Completed [facility] TDAP 2017-10-11 00:00:00 Completed [facility] TDAP 2017-10-11 00:00:00 Completed [facility] Vital Signs Vital Name Observation Time Observation Value Comments S ource Systolic blood pressure 2024-06-27 14:49:00 113 mm[Hg] [facility] Diastolic blood pressure 2024-06-27 14:49:00 82 mm[Hg] [facility] Heart rate 2024-06-27 14:46:00 77 /min [facility] Body temperature 2024-06-27 14:46:00 36.78 Celia [facility] Respiratory rate 2024-06-27 14:46:00 18 /min [facility] Body height 2024-06-27 14:46:00 160 cm [facility] Body weight 2024-06-27 14:46:00 82.373 kg [facility] BMI 2024-06-27 14:46:00 32.17 kg/m2 [facility] Systolic blood pressure 2022-06-08 20:00:00 124 mm[Hg] [facility] Diastolic blood pressure 2022-06-08 20:00:00 66 mm[Hg] [facility] Heart rate 2022-06-08 20:00:00 74 /min [facility] Respiratory rate 2022-06-08 20:00:00 21 /min [facility] Oxygen saturation in Arterial blood by Pulse oximetry 2022-06-08 20:00:00 97 /min [facility] Body temperature 2022-06-08 16:35:00 36.61 Celia [facility] Body weight 2022-06-08 16:35:00 80.74 kg [facility] BMI 2022-06-08 16:35:00 31.53 kg/m2 [facility] Systolic blood pressure 2022-03-11 22:01:00 125 mm[Hg] [facility] Diastolic blood pressure 2022-03-11 22:01:00 84 mm[Hg] [facility] Heart rate 2022-03-11 22:00:00 97 /min [facility] Body temperature 2022-03-11 22:00:00 36.94 Celia [facility] Body height 2022-03-11 22:00:00 160 cm [facility] Body weight 2022-03-11 22:00:00 79.833 kg [facility] BMI 2022-03-11 22:00:00 31.18 kg/m2 [facility] Oxygen saturation in Arterial blood by Pulse oximetry 2022-03-11 22:00:00 99 /min [facility] Systolic blood pressure 2021-03-27 20:49:00 122 mm[Hg] [facility] Diastolic blood pressure 2021-03-27 20:49:00 80 mm[Hg] [facility] Heart rate 2021-03-27 20:49:00 69 /min [facility] Body temperature 2021-03-27 20:49:00 37.06 Celia [facility] Body height 2021-03-27 20:49:00 160 cm [facility] Body weight 2021-03-27 20:49:00 80.695 kg [facility] BMI 2021-03-27 20:49:00 31.51 kg/m2 [facility] Oxygen saturation in Arterial blood by Pulse oximetry 2021-03-27 20:49:00 98 /min [facility] Respiratory rate 2021-02-13 13:41:00 18 /min [facility] Procedures Procedure Date / Time Performed Performing Clinician Source CT ABDOMEN PELVIS WO CONTRAST 2022-06-08 17:31:00 Juana Armstrong [facility] POCT TEST 2022-06-08 16:49:00 Juana Denton [facility] LIPASE 2022-06-08 16:47:00 Juana Armstrong [facility] COMP. METABOLIC PANEL (99616) 2022-06-08 16:47:00 Juana Armstrong [facility] CBC WITH DIFF 2022-06-08 16:47:00 Juana Armstrong [facility] URINALYSIS 2022-06-08 16:47:00 Juana Armstrong [facility] ASSIGNMENT OF BENEFITS 2022-03-11 21:53:19 Docto r Unassigned, [place] [facility] EXTERNAL PROVIDER RECORDS 2021-09-10 05:01:00 Do ctor Unassigned, [place] [facility] EXTERNAL PROVIDER RECORDS 2021-09-08 05:01:00 Do ctor Unassigned, [place] [facility] EXTERNAL PROVIDER RECORDS 2021-09-07 05:01:00 Do ctor Unassigned, [place] [facility] SCANNED LAB RESULTS 2019-03-30 06:01:00 Doctor Brooks dick, [place] [facility] AGREEMENTS AUTHORIZATIONS AND IRREVOCABLE ASSIGNMENTS (FORM 2001) 2019-03-27 06:01:00 Doctor Unassigned, [place] [facility] Appendectomy [facility] Caesarean Section [facility] Cosmetic Surgery [place] Plan of Care Planned Activity Planned Date Details Comments Source Instructions [facility] Encounters Start Date/Time End Date/Time Encounter Type Admission Type Attending Clinicians Care Facility Care Department Encounter ID Source 2021-01-23 01:47:58 Emergency [facility] [id number] [facility] 2025-07-05 09:45:00 2025-07-05 09:45:00 Outpatient TANIA MONROE [facility] [id number] [facility] 2024-07-30 10:15:00 2024-07-30 10:15:00 Outpatient BONIFACIO TALAVERA CRAIG [facility] [id number] [facility] 2024-06-27 10:00:00 2024-06-27 10:13:59 Outpatient TANIA MONROE [facility] [id number] [facility] 2024-06-27 10:00:00 2024-06-27 10:13:59 Office Visit Tania Wood [facility] 1.2.840.114 350.1.13.10 4.2.7.2.686 [id number] [facility] 2019-02-21 00:00:00 2024-05-12 03:06:21 Orders Only Mich Olivarescassandra Pro Marshall, Virgie A [facility] 1.284.114 350.1.13.10 4.2.7.2.686 [id number] [facility] 2019-03-27 00:00:00 2024-05-12 03:05:36 Orders Only Linda Looney Stephanie L [facility] 1.2.114 350.1.13.10 4.2.7.2.686 [id number] [facility] 2024-02-06 10:13:20 2024-02-06 10:51:57 Outpatient Elective SELBSABDULKADIR Correia EOUT [id number] [facility] 2024-02-06 10:10:00 2024-02-06 10:51:57 Office Visit SelAbdulkadir jara [facility] 1..114 350.1.13.70 8.2.7.2.686 [id number] Maria Del Carmen Solo [facility] 2024-01-30 09:05:34 2024-01-30 10:11:24 Outpatient Elective ABDULKADIR KAHN EOUT [id number] [facility] 2024-01-30 09:10:00 2024-01-30 09:20:00 Office Visit Abdulkadir Kahn Foot And Ankle Professio [facility] 1..114 350.1.13.70 8.2.7.2.686 [id number] Maria Del Carmen Solo [facility] 2024-01-25 00:00:00 2024-01-25 14:47:19 Telephone Abdulkadir Kahn Foot And Ankle Professio [facility] 1.84.114 350.1.13.70 8.2.7.2.686 [id number] Maria Del Carmen Solo [facility] 2024-01-23 08:13:25 2024-01-23 08:13:35 Outpatient Elective SELBSTABDULKADIR MHEOUT [facility] [id number] [facility] 2024-01-23 07:00:00 2024-01-23 08:13:35 Outside Procedure SelbstAbdulkadir Foot And Ankle Professio [facility] 1.2.840.114 350.1.13.70 8.2.7.2.686 [id number] Maria Del Carmen parsons [facility] 2024-01-09 10:50:00 2024-01-09 11:37:56 Office Visit SelbstAbdulkadir Foot And Ankle Professio [facility] 1.2.840.114 350.1.13.70 8.2.7.2.686 [id number] [facility] 2024-01-09 10:44:53 2024-01-09 11:37:56 Outpatient Elective SELBSTABDULKADIRSONNY EOUT [id number] [facility] 2023-12-28 10:40:00 2023-12-28 11:11:33 Office Visit Selbst, Abdulkadir Wiley Foot And Ankle Professio [facility] 1.2.840.114 350.1.13.70 8.2.7.2.686 [id number] Maria Del Carmen parsons [facility] 2023-12-28 10:35:50 2023-12-28 11:11:33 Outpatient Elective SELBSTABDULKADIR ETAMRA EOUT [id number] [facility] 2023-12-21 09:20:00 2023-12-21 10:20:50 Office Visit SelbstAbdulkadir Foot And Ankle Professio [facility] 1.2.840.114 350.1.13.70 8.2.7.2.686 [id number] Maria Del Carmen [facility] 2023-12-21 09:07:57 2023-12-21 10:20:50 Outpatient Elective SELBSTABDULKADIR SONNY EOUT [id number] [facility] 2023-09-14 09:10:00 2023-09-14 09:42:04 Office Visit SelbsAbdulkadir correia [facility] 1.2.840.114 350.1.13.70 8.2.7.2.686 [id number] Maria Del Carmen Solo [facility] 2023-09-14 09:00:11 2023-09-14 09:42:04 Outpatient Elective SELBSTABDULKADIR EOUT EOUT [id number] [facility] 2023-08-17 11:40:00 2023-08-17 12:53:51 Office Visit SelbstAbdulkadir Wiley Foot And Ankle [facility] 1.2.840.114 350.1.13.70 8.2.7.2.686 [id number] [facility] 2023-04-03 00:00:00 2023-04-03 00:00:00 Nurse Triage Kaycee Hector [facility] 1.2.840.114 350.1.13.10 4.2.7.2.686 [id number] [facility] 2022-08-25 13:18:45 2022-08-25 13:18:45 Outpatient SFA [facility] [id number] Dequan F eNd 2022-06-16 00:00:00 2022-06-16 00:00:00 Patient Secure Msg Doctor Unassigned, [place] [facility] 1.2.840.114 350.1.13.10 4.2.7.2.686 [id number] [facility] 2022-06-08 11:36:00 2022-06-08 16:02:00 Emergency X JUANA ARMSTRONG [facility] ERT [id number] [facility] 2022-06-08 11:36:00 2022-06-08 16:02:00 Emergency AufdJuana yoo [facility] 1.2.840.114 350.1.13.10 4.2.7.2.686 [id number] [facility] 2022-05-25 00:00:00 2022-05-25 00:00:00 Outpatient SAGLIME_JOH N [facility] [id number] [facility] 2022-04-01 00:00:00 2022-04-01 00:00:00 Outpatient SAGLIME_JOH N [facility] [id number] [facility] 2022-03-11 16:00:00 2022-03-11 16:30:15 Outpatient R [facility] [id number] [facility] 2022-03-11 16:00:00 2022-03-11 16:30:15 [facility] 1..840.114 350.1.13.10 4.2.7.2.686 [id number] [facility] 2022-03-11 00:00:00 2022-03-11 00:00:00 Orders Only Doctor Unassigned, [place] [facility] 1.2.840.114 350.1.13.10 4.2.7.2.686 [id number] [facility] 2022-02-24 00:00:00 2022-02-24 00:00:00 Outpatient SAGLIME_JOH N [facility] [id number] [facility] 2022-01-20 00:00:00 2022-01-20 00:00:00 Outpatient SAGLIME_JOH N [facility] [id number] [facility] 2021-12-22 00:00:00 2021-12-22 00:00:00 Outpatient SAGLIME_JOH N [facility] [id number] [facility] 2021-12-15 00:00:00 2021-12-15 00:00:00 Outpatient SAGLIME_JOH N [facility] [id number] [facility] 2021-12-15 00:00:00 2021-12-15 00:00:00 Denisa leal, PANTOGRAPH WATCHER: [address] [place] [address] , Ph. [phone] [facility] B.[facility] [id number] [facility] 2021-12-11 08:30:00 2021-12-11 08:30:00 Outpatient TATIANA SEVILLA [facility] [id number] [facility] 2021-12-08 00:00:00 2021-12-08 00:00:00 Outpatient SAGLIME_JOH N [facility] [id number] [facility] 2021-12-08 00:00:00 2021-12-08 00:00:00 Denisa leal, PANTOGRAPH WATCHER: [address] [place] [address] , Ph. [phone] [facility] [id number] [facility] 2021-12-07 00:00:00 2021-12-07 00:00:00 Outpatient SAGLIME_JOH N [facility] [id number] [facility] 2021-12-03 00:00:00 2021-12-03 00:00:00 Outpatient SAGLIME_JOH N [facility] [id number] [facility] 2021-12-02 00:00:00 2021-12-02 00:00:00 Outpatient SAGLIME_JOH N [facility] [id number] [facility] 2021-12-01 00:00:00 2021-12-01 00:00:00 Outpatient SAGLIME_JOH N [facility] [id number] [facility] 2021-12-01 00:00:00 2021-12-01 00:00:00 Denisa leal, PANTOGRAPH WATCHER: [address] [place] [address] , Ph. [phone] [facility] [place] [facility] B[facility] [id number] [facility] 2021-11-27 00:00:00 2021-11-27 00:00:00 Outpatient SAGLIME_JOH N [facility] [id number] [facility] 2021-11-25 00:00:00 2021-11-25 00:00:00 Outpatient SAGLIME_JOH N [facility] [id number] [facility] 2021-11-24 00:00:00 2021-11-24 00:00:00 Outpatient SAGLIME_JOH N [facility] [id number] [facility] 2021-11-23 00:00:00 2021-11-23 00:00:00 Outpatient SAGLIME_JOH N [facility] [id number] [facility] 2021-11-23 00:00:00 2021-11-23 00:00:00 Denisa leal, PANTOGRAPH WATCHER: [address] [place] [address] , Ph. [phone] [facility] [place] [facility] B[facility] [id number] [facility] 2021-11-12 00:00:00 2021-11-12 00:00:00 Outpatient SAGLIME_JOH N [facility] [id number] [facility] 2021-09-07 00:00:00 2021-09-07 00:00:00 Orders Only Doctor Unassigned, [place] 1.2.840.1 [id number] 3.104.2.7 .3.379236 .8 [id number] [facility] 2021-08-25 00:00:00 2021-08-25 00:00:00 Telephone Keily Brewster 1.2.840.1 [id number] 3.104.2.7 .3.681031 .8 [id number] [facility] 2021-07-23 15:00:00 2021-07-23 15:41:17 Outpatient JUAN R DE SOUZA [facility] [id number] [facility] 2021-06-22 00:00:00 2021-06-22 00:00:00 Orders Only Doctor Unassigned, [place] [facility] 1.2.840.114 350.1.13.10 4.2.7.2.686 [id number] [facility] 2021-05-25 00:00:00 2021-05-25 00:00:00 Orders Only Doctor Unassigned, [place] 1.2.840.1 [id number] 3.104.2.7 .3.193049 .8 [id number] [facility] 2021-04-30 12:45:00 2021-04-30 13:17:54 Outpatient JUAN R DE SOUZA [facility] [id number] [facility] 2021-03-28 00:00:00 2021-03-28 00:00:00 Patient Secure Msg Doctor Unassigned, [place] [facility] 1.2.840.114 350.1.13.10 4.2.7.2.686 [id number] [facility] 2021-03-27 14:30:00 2021-03-27 15:12:02 Outpatient R CORTES REGALADO [facility] [id number] [facility] 2021-03-27 14:30:00 2021-03-27 15:12:02 Office Visit Cortes Regalado 1.2.840.1 [id number] 3.104.2.7 .3.259833 .8 [id number] [facility] 2021-03-27 00:00:00 2021-03-27 00:00:00 Travel 1.2.840.1 [id number] 3.104.2.7 .3.996284 .8 1.2.840.114 350.1.13.10 4.2.7.3.698 [id number] [facility] 2021-03-13 10:00:00 2021-03-13 10:57:46 Outpatient TATIANA SEVILLA [facility] [id number] [facility] 2021-03-13 10:00:00 2021-03-13 10:57:46 Outpatient TATIANA SEVILLA [facility] [id number] [facility] 2021-02-23 00:00:00 2021-02-23 00:00:00 Patient Secure Msg Cortes [facility] 1.2.840.114 350.1.13.10 4.2.7.2.686 [id number] [facility] 2021-02-23 00:00:00 2021-02-23 00:00:00 Patient Secure Msg Cortes Regalado 1.2.840.1 23993.1.1 3.104.2.7 .3.358850 .8 [id number] [facility] 2021-02-17 08:30:00 2021-02-17 08:41:17 Reworker Visit NicolleCortes lopez Lab, Ang - Db 1.2.840.1 01379.1.1 3.104.2.7 .3.820436 .8 [id number] [facility] 2021-02-17 08:30:00 2021-02-17 08:41:17 Reworker Visit Cortes Regalado Jerel Antony Roby Martinez 1.2.840.1 31871.1.1 3.104.2.7 .3.351564 .8 [id number] [facility] 2021-02-17 08:25:30 2021-02-17 08:40:30 Reworker Visit Jerel, Antony - [facility] 1.114 350.1.13.10 4.2.7.2.686 [id number] [facility] 2021-02-17 08:30:00 2021-02-17 08:30:00 Outpatient R CORTES REGALADO [facility] [id number] [facility] 2021-02-16 16:00:00 2021-02-16 16:34:33 Outpatient R CORTES REGALADO [facility] [id number] [facility] 2021-02-16 16:00:00 2021-02-16 16:34:33 Office Visit Cortes Regalado 1.2.840.1 23490.1.1 3.104.2.7 .3.853957 .8 [id number] [facility] 2021-02-16 16:00:00 2021-02-16 16:34:33 Office Visit Cortes Regalado 1.2.840.1 05718.1.1 3.104.2.7 .3.655701 .8 [id number] [facility] 2021-02-16 15:24:24 2021-02-16 16:34:33 [facility] 1.84.114 350.1.13.10 4.2.7.2.686 [id number] [facility] 2021-02-16 16:00:00 2021-02-16 16:00:00 Outpatient CORTES MARTINS [facility] [id number] [facility] 2021-02-16 16:00:00 2021-02-16 16:00:00 Outpatient EVELYN MARTINSTHIA [facility] [id number] [facility] 2021-02-16 00:00:00 2021-02-16 00:00:00 Travel 1.2.840.1 08581.1.1 3.104.2.7 .3.558752 .8 1.2.840.114 350.1.13.10 4.2.7.3.698 [id number] [facility] 2021-02-16 00:00:00 2021-02-16 00:00:00 Travel 1.2.840.1 [id number] 3.104.2.7 .3.484318 .8 1.2.840.114 350.1.13.10 4.2.7.3.698 [id number] [facility] 2021-02-13 07:45:00 2021-02-13 09:29:35 Outpatient Hermes CUEVAS TATIANA [facility] [id number] [facility] 2021-02-13 00:00:00 2021-02-13 00:00:00 Travel 1.2.840.1 15523.1.1 3.104.2.7 .3.206331 .8 1.2.840.114 350.1.13.10 4.2.7.3.698 084.8 [id number] [facility] 2021-02-13 00:00:00 2021-02-13 00:00:00 Travel 1.2.840.1 10242.1.1 3.104.2.7 .3.654148 .8 1.2.840.114 350.1.13.10 4.2.7.3.698 084.8 [id number] [facility] 2021-02-13 00:00:00 2021-02-13 00:00:00 Travel 1.2.840.1 88474.1.1 3.104.2.7 .3.423304 .8 1.2.840.114 350.1.13.10 4.2.7.3.698 084.8 [id number] [facility] 2021-02-06 10:40:00 2021-02-06 10:54:42 Outpatient R SONG BARKSDALE [facility] [id number] [facility] 2021-02-06 10:40:00 2021-02-06 10:54:42 Office Visit Song [place] 1.2.840.1 95185.1.1 3.104.2.7 .3.908507 .8 [id number] [facility] 2021-02-06 10:40:00 2021-02-06 10:54:42 Outpatient R SONG BARKSDALE [facility] [id number] [facility] 2021-02-06 10:40:00 2021-02-06 10:54:42 Office Visit Snog [place] 1.2.840.1 40872.1.1 3.104.2.7 .3.738138 .8 [id number] [facility] 2021-02-06 10:11:55 2021-02-06 10:54:42 Office Visit Sogn [place] 1.2.840.1 61576.1.1 3.104.2.7 .3.024731 .8 [id number] [facility] 2021-02-06 09:20:00 2021-02-06 09:40:00 Office Visit Song [place] 1.2.840.1 40884.1.1 3.104.2.7 .3.926434 .8 [id number] [facility] 2021-02-06 09:20:00 2021-02-06 09:40:00 Office Visit Song [place] [facility] 1.2.840.114 350.1.13.10 4.2.7.2.686 [id number] [facility] 2021-02-06 09:20:00 2021-02-06 09:40:00 Office Visit Song [place] 1.2.840.1 45983.1.1 3.104.2.7 .3.630849 .8 [id number] [facility] 2021-02-06 09:20:00 2021-02-06 09:40:00 Office Visit Song [place] 1.2.840.1 10761.1.1 3.104.2.7 .3.175876 .8 [id number] [facility] 2021-02-06 09:20:00 2021-02-06 09:20:00 [facility] [id number] [facility] 2021-02-06 09:20:00 2021-02-06 09:20:00 Outpatient R SONG BARKSDALE [facility] [id number] [facility] 2021-02-06 00:00:00 2021-02-06 00:00:00 Orders Only Doctor Unassigned, [place] 1.2.840.1 37146.1.1 3.104.2.7 .3.675339 .8 [id number] [facility] 2021-02-06 00:00:00 2021-02-06 00:00:00 Travel 1.2.840.1 09501.1.1 3.104.2.7 .3.862000 .8 1.2.840.114 350.1.13.10 4.2.7.3.698 084.8 [id number] [facility] 2021-02-06 00:00:00 2021-02-06 00:00:00 Orders Only Doctor Unassigned, [place] 1.2.840.1 79648.1.1 3.104.2.7 .3.782658 .8 [id number] [facility] 2021-02-06 00:00:00 2021-02-06 00:00:00 Travel 1.2.840.1 16783.1.1 3.104.2.7 .3.508155 .8 1.2.840.114 350.1.13.10 4.2.7.3.698 084.8 [id number] [facility] 2021-02-06 00:00:00 2021-02-06 00:00:00 Orders Only Doctor Unassigned, [place] 1.2.840.1 03686.1.1 3.104.2.7 .3.835688 .8 [id number] [facility] 2021-02-06 00:00:00 2021-02-06 00:00:00 Travel 1.2.840.1 49579.1.1 3.104.2.7 .3.209463 .8 1.2.840.114 350.1.13.10 4.2.7.3.698 084.8 [id number] [facility] 2021-01-15 10:00:00 2021-01-15 10:00:00 Outpatient SONG FREEMAN [facility] [id number] [facility] 2021-01-09 13:20:00 2021-01-09 13:20:00 Outpatient R SONG BARKSDALE [facility] [id number] [facility] 2021-01-07 00:00:00 2021-01-07 00:00:00 Patient Secure Song Santos [facility] 1.2.840.114 350.1.13.10 4.2.7.2.686 [id number] [facility] 2021-01-07 00:00:00 2021-01-07 00:00:00 Patient Secure Song Santos 1.2.840.1 20119.1.1 3.104.2.7 .3.496367 .8 [id number] [facility] 2021-01-07 00:00:00 2021-01-07 00:00:00 Patient Secure Song Santos 1.2.840.1 04271.1.1 3.104.2.7 .3.636975 .8 [id number] [facility] 2020-09-23 11:09:08 2020-09-23 11:29:08 Urgent Care Provider, [facility] Cortes Regalado [facility] [address] 1..840.114 350.1.13.10 4.2.7.2.686 [id number] [facility] 2020-09-23 11:00:00 2020-09-23 11:00:00 Outpatient R [facility] [id number] [facility] 2020-09-12 00:00:00 2020-09-12 00:00:00 Patient Secure Msg [facility] MEDICAL OFFICE BUILDING 1..840.114 350.1.13.10 4.2.7.2.686 [id number] [facility] 2020-09-11 10:09:35 2020-09-11 10:53:15 [facility] 1..840.114 350.1.13.10 4.2.7.2.686 [id number] [facility] 2020-09-11 10:40:00 2020-09-11 10:40:00 Outpatient R LUIZ [facility] [id number] [facility] 2020-09-11 00:00:00 2020-09-11 00:00:00 Orders Only Doctor Unassigned, [place] [facility] 1.2.840.114 350.1.13.10 4.2.7.2.686 [id number] [id number] [facility] 2020-09-10 00:00:00 2020-09-10 00:00:00 Telephone Song Barksdale [facility] 1.2.840.114 350.1.13.10 4.2.7.2.686 [id number] 095 [id number] [facility] 2020-09-04 00:00:00 2020-09-04 00:00:00 Patient Secure Msg Shamir [facility] Medical Office Building 1.2.840.114 350.1.13.10 4.2.7.2.686 [id number] [id number] [facility] 2020-08-22 00:00:00 2020-08-22 00:00:00 Case Management Meliza Franco [facility] nal Building 1.2.840.114 350.1.13.10 4.2.7.2.686 [id number] [facility] 2020-08-21 10:49:39 2020-08-21 11:21:33 Office Visit Yury Troy [facility] Building 1.2.840.114 350.1.13.10 4.2.7.2.686 [id number] [facility] 2020-08-21 10:45:00 2020-08-21 10:45:00 Outpatient R YURY TROY [facility] [id number] [facility] 2020-08-21 00:00:00 2020-08-21 00:00:00 Orders Only Doctor Unassigned, [place] [facility] 1.2.840.114 350.1.13.10 4.2.7.2.686 [id number] [facility] 2020-08-13 13:00:2020-08-13 13:00:00 Outpatient LUCIA HASSAN [facility] [id number] [facility] 2020-08-13 13:00:00 2020-08-13 13:00:00 Outpatient LUCIA HASSAN [facility] [id number] [facility] 2020-08-12 00:00:00 2020-08-12 00:00:00 Telephone Keily Brewster [facility] Office Building One 1..840.114 350.1.13.10 4.2.7.2.686 [id number] [facility] 2020-07-17 13:00:00 2020-07-17 13:00:00 [facility] [id number] [facility] 2020-07-04 10:00:00 2020-07-04 10:00:00 [facility] [id number] [facility] 2020-07-04 08:02:38 2020-07-04 09:02:38 Telemedici ne Visit Yuefemi [facility] Medical Office Building 1..840.114 350.1.13.10 4.2.7.2.686 [id number] 273 [id number] 2020-07-04 08:02:38 2020-07-04 09:02:38 Telemedici ne Visit Denny [facility] Medical Office Building 1.2.840.114 350.1.13.10 4.2.7.2.686 [id number] 273 [id number] [facility] 2020-06-19 11:00:00 2020-06-19 11:00:00 Outpatient LUCIA HASSAN [facility] [id number] [facility] 2020-06-19 08:11:06 2020-06-19 09:11:06 Telemedici ne Visit Denny [facility] Medical Office Building 1..840.114 350.1.13.10 4.2.7.2.686 [id number] 273 [id number] 2020-06-19 08:11:06 2020-06-19 09:11:06 Telemedici ne Visit Lucia Baldwin [facility] Medical Office Building 1.2.840.114 350.1.13.10 4.2.7.2.686 [id number] 273 [id number] [facility] 2020-06-17 00:00:00 2020-06-17 00:00:00 Patient Outreach Slick Sánchez [facility] 1.2.840.114 350.1.13.10 4.2.7.2.686 [id number] 2020-06-17 00:00:00 2020-06-17 00:00:00 Patient Outreach Slick Sánchez [facility] 1.2.840.114 350.1.13.10 4.2.7.2.686 [id number] [facility] 2020-06-12 08:09:12 2020-06-12 14:44:13 Telemedici ne Visit Lucia Baldwin [facility] Medical Office Building 1.2840.114 350.1.13.10 4.2.7.2.686 [id number] 273 [id number] 2020-06-12 08:09:12 2020-06-12 14:44:13 Telemedici ne [facility] 1.2.840.114 350.1.13.10 4.2.7.2.686 [id number] 273 [id number] [facility] 2020-06-12 14:00:00 2020-06-12 14:00:00 [facility] [id number] [facility] 2020-06-12 00:00:00 2020-06-12 00:00:00 Patient Secure Msg Denny [facility] Medical Office Building 1.2.840.114 350.1.13.10 4.2.7.2.686 [id number] 273 [id number] [facility] 2020-05-19 00:00:00 2020-05-19 00:00:00 Telephone [facility] 1.2.840.114 350.1.13.10 4.2.7.2.686 [id number] 273 [id number] 2020-05-19 00:00:00 2020-05-19 00:00:00 Telephone Denny [facility] Medical Office Building 1.2.840.114 350.1.13.10 4.2.7.2.686 [id number] 273 [id number] [facility] 2020-05-15 11:00:00 2020-05-15 11:00:00 Outpatient R LUCIA BALDWIN [facility] [id number] [facility] 2020-04-29 09:04:10 2020-04-29 13:44:29 Telemedici ne Visit Denny [facility] Medical Office Building 1.2.840.114 350.1.13.10 4.2.7.2.686 [id number] 273 [id number] 2020-04-29 09:04:10 2020-04-29 13:44:29 Telemedici ne Visit Denny [facility] Medical Office Building 1.2.840.114 350.1.13.10 4.2.7.2.686 [id number] 273 [id number] [facility] 2020-04-29 13:00:00 2020-04-29 13:00:00 Outpatient R LUCIA BALDWIN [facility] [id number] [facility] 2020-04-23 15:00:00 2020-04-23 15:00:00 Outpatient PAUL PALAFOX [facility] [id number] [facility] 2020-04-16 10:00:00 2020-04-16 10:00:00 Outpatient R GILDA DEE [facility] [id number] [facility] 2020-04-15 11:32:37 2020-04-15 15:05:15 Office Visit Gilda Dee [facility] Office Building 1.2.840.114 350.1.13.10 4.2.7.2.686 [id number] [facility] 2020-04-15 12:56:21 2020-04-15 15:04:41 Office Visit Lucia Baldwin [facility] Office Building 1.2.840.114 350.1.13.10 4.2.7.2.686 [id number] [facility] 2020-04-15 13:00:00 2020-04-15 13:00:00 Outpatient R [facility] [id number] [facility] 2020-04-07 00:00:00 2020-04-07 00:00:00 Telephone Keily Brewster [facility] nal Building 1.2.840.114 350.1.13.10 4.2.7.2.686 [id number] [facility] 2020-04-01 15:49:47 2020-04-01 17:45:43 Telemedici ne Visit Evelyn Regaladothia [facility] Office Building One 1.2840.114 350.1.13.10 4.2.7.2.686 [id number] 044 [id number] 2020-04-01 15:49:47 2020-04-01 17:45:43 [facility]medici ne [facility] 1.2840.114 350.1.13.10 4.2.7.2.686 [id number] [facility] 2020-04-01 16:00:00 2020-04-01 16:00:00 Outpatient R CORTES REGALADO [facility] [id number] [facility] 2020-03-18 13:00:00 2020-03-18 13:00:00 Outpatient R LUCIA BALDWIN [facility] [id number] [facility] 2020-03-18 11:30:57 2020-03-18 12:30:57 Telemedici ne Visit [facility] 1.2.840.114 350.1.13.10 4.2.7.2.686 [id number] 273 [id number] [facility] 2020-03-13 10:01:56 2020-03-13 10:40:04 Office Visit Luiz Gilda Mirza [facility] Medical Office Building 1.2.840.114 350.1.13.10 4.2.7.2.686 [id number] [facility] 2020-03-13 10:00:00 2020-03-13 10:00:00 Outpatient GILDA HENDERSON [facility] [id number] [facility] 2020-03-13 00:00:00 2020-03-13 00:00:00 Orders Only Doctor Unassigned, [place] [facility] 1.2.840.114 350.1.13.10 4.2.7.2.686 [id number] [facility] 2020-03-12 00:00:00 2020-03-12 00:00:00 Refill Gilda Dee [facility] Medical Office Building 1.2.840.114 350.1.13.10 4.2.7.2.686 [id number] [facility] 2020-03-11 08:30:00 2020-03-11 08:30:00 Outpatient GILDA HENDERSON [facility] [id number] [facility] 2020-03-10 13:00:00 2020-03-10 13:00:00 Outpatient LUCIA HASSAN [facility] [id number] [facility] 2020-03-10 00:00:00 2020-03-10 00:00:00 Patient Secure Msg Shamir [facility] Medical Office Building 1.2840.114 350.1.13.10 4.2.7.2.686 [id number] [facility] 2020-03-10 00:00:00 2020-03-10 00:00:00 Case Management LuizGilda [facility] Medical Office Building 1.2.840.114 350.1.13.10 4.2.7.2.686 [id number] [id number] [facility] 2020-03-10 00:00:00 2020-03-10 00:00:00 Telephone Keily Brewster [facility] Office Building One 1.2840.114 350.1.13.10 4.2.7.2.686 [id number] [facility] 2020-02-15 13:59:57 2020-02-15 15:22:42 Office Visit Denny Lucia [facility] Medical Office Building 1.2840.114 350.1.13.10 4.2.7.2.686 [id number] 273 [id number] [facility] 2020-02-15 14:00:00 2020-02-15 14:00:00 Outpatient R LUCIA BALDWIN [facility] [id number] [facility] 2020-01-17 13:42:35 2020-01-28 23:03:59 Office Visit Shamir [facility] Medical Office Building 1.2840.114 350.1.13.10 4.2.7.2.686 [id number] [facility] 2020-01-17 14:42:21 2020-01-17 14:57:21 Reworker Visit Draw, Clc-Bls Lab Shamir [facility] Medical Office Building 1.2840.114 350.1.13.10 4.2.7.2.686 [id number] [facility] 2020-01-17 13:40:00 2020-01-17 13:40:00 Outpatient R SHAMIR SONG [facility] [id number] [facility] 2020-01-11 14:00:00 2020-01-11 14:00:00 Outpatient R LUCIA BALDWIN [facility] [id number] [facility] 2020-01-10 00:00:00 2020-01-10 00:00:00 Telephone David Virgilrodrickjim [facility] Office Building One 1..114 350.1.13.10 4.2.7.2.686 [id number] [facility] 2020-01-05 00:00:00 2020-01-05 00:00:00 Orders Only Doctor Unassigned, [place] [facility] 1.0.114 350.1.13.10 4.2.7.2.686 [id number] [facility] 2019-12-11 00:00:00 2019-12-11 00:00:00 Telephone Keily Brewster Morteza [facility] Office Building One 1.84.114 350.1.13.10 4.2.7.2.686 [id number] 044 [id number] [facility] 2019-12-06 00:00:00 2019-12-06 00:00:00 Patient Secure Msg Shamir [facility] Medical Office Building 1..114 350.1.13.10 4.2.7.2.686 [id number] 095 [id number] [facility] 2019-12-04 00:00:00 2019-12-04 00:00:00 [facility]114 350.1.13.10 4.2.7.2.686 [id number] [facility] 2019-11-08 08:15:19 2019-11-08 15:40:19 Telemedici ne Visit Shamir [facility] Medical Office Building 1.114 350.1.13.10 4.2.7.2.686 [id number] [facility] 2019-11-08 14:00:00 2019-11-08 14:00:00 Outpatient [facility] [id number] [facility] 2019-10-12 13:13:30 2019-10-12 15:14:20 [facility] 1.114 350.1.13.10 4.2.7.2.686 [id number] [facility] 2019-10-12 14:15:00 2019-10-12 14:15:00 Outpatient R [facility]LY [facility] [id number] [facility] 2019-10-02 05:16:00 2019-10-04 12:31:00 Hospital Encounter José Sánchez [facility] 1.114 350.1.13.10 4.2.7.2.686 [id number] [facility] 2019-10-02 05:16:00 2019-10-02 05:16:00 Outpatient P JOSÉ SÁNCHEZ [facility] MARGARITA [id number] [facility] 2019-10-02 00:00:00 2019-10-02 00:00:00 Orders Only Doctor Unassigned, [place] [facility] 1.114 350.1.13.10 4.2.7.2.686 [id number] [facility] 2019-09-29 07:54:57 2019-09-29 08:09:57 Reworker Visit 1, [facility]..114 350.1.13.10 4.2.7.2.686 [id number] [facility] 2019-09-29 08:00:00 2019-09-29 08:00:00 Outpatient R [facility] [id number] [facility] 2019-09-28 14:45:12 2019-09-28 17:00:33 Routine Visit Song [facility] 1.2840.114 350.1.13.10 4.2.7.2.686 [id number] [facility] 2019-09-28 16:30:00 2019-09-28 16:30:00 Outpatient R LUCY AMAYA [facility] [id number] [facility] 2019-09-28 15:00:00 2019-09-28 15:00:00 [facility] [id number] [facility] 2019-09-28 00:00:00 2019-09-28 00:00:00 Orders Only Doctor Unassigned, [place] [facility] 1.2840.114 350.1.13.10 4.2.7.2.686 [id number] [facility] 2019-09-26 00:00:00 2019-09-26 00:00:00 [facility] 1.2.840.114 350.1.13.10 4.2.7.2.686 [id number] 134 [id number] [facility] 2019-09-25 09:57:19 2019-09-25 10:12:19 Routine Visit Room, [facility]c [facility]st [facility] 1.284.114 350.1.13.10 4.2.7.2.686 [id number] 134 [id number] [facility] 2019-09-25 10:00:00 2019-09-25 10:00:00 Outpatient R [facility] [id number] [facility] 2019-09-21 15:00:03 2019-09-21 17:16:02 Routine Visit Room, [facility] Geri Ovalle [facility] Professio nal Building 1.2.840.114 350.1.13.10 4.2.7.2.686 [id number] 134 [id number] [facility] 2019-09-21 15:00:00 2019-09-21 15:00:00 Outpatient R [facility] [id number] [facility] 2019-09-20 00:00:00 2019-09-20 00:00:00 Telephone Song [facility] Professio nal Building 1.2.840.114 350.1.13.10 4.2.7.2.686 [id number] [facility] 2019-09-18 10:01:30 2019-09-18 10:51:11 Routine Visit Room, [facility] 1.2.840.114 350.1.13.10 4.2.7.2.686 [id number] 134 [id number] [facility] 2019-09-18 10:00:00 2019-09-18 10:00:00 Outpatient R [facility] [id number] [facility] 2019-09-17 08:30:00 2019-09-17 08:30:00 Outpatient R [facility] [id number] [facility] 2019-09-17 00:00:00 2019-09-17 00:00:00 [facility] 1.2.840.114 350.1.13.10 4.2.7.2.686 [id number] 134 [id number] [facility] 2019-09-13 11:36:59 2019-09-16 12:42:21 [facility] 1..114 350.1.13.10 4.2.7.2.686 [id number] 134 [id number] [facility] 2019-09-14 09:08:15 2019-09-14 09:57:00 Emergency Timmy Kwon [facility] 1.0.114 350.1.13.10 4.2.7.2.686 [id number] [facility] 2019-09-14 09:45:00 2019-09-14 09:45:00 Outpatient R BARKSDALE, LUCY [facility] [id number] [facility] 2019-09-13 11:30:00 2019-09-13 11:30:00 Outpatient R BARKSDALESONG [facility] [id number] [facility] 2019-09-10 16:10:47 2019-09-10 16:45:51 Office Visit Keily Brewster [facility] 1.114 350.1.13.10 4.2.7.2.686 [id number] [facility] 2019-09-10 16:00:00 2019-09-10 16:00:00 Outpatient R KEILY BREWSTER [facility] [id number] [facility] 2019-09-04 10:45:05 2019-09-04 11:00:05 Reworker Visit Pob, Adc Lab Main Terence Rosaeeta [facility] 1.114 350.1.13.10 4.2.7.2.686 [id number] [facility] 2019-09-04 10:02:43 2019-09-04 10:32:43 Reworker Visit Jena, [facility] BIL[facility] 1.114 350.1.13.10 4.2.7.2.686 [id number] [facility] 2019-09-04 10:00:00 2019-09-04 10:00:00 Outpatient P [facility] [id number] [facility] 2019-09-02 00:00:00 2019-09-02 00:00:00 Telephone Keily Brewster [facility] Professio nal Building 1.2.840.114 350.1.13.10 4.2.7.2.686 [id number] [facility] 2019-08-23 09:43:04 2019-08-29 15:58:29 Routine Visit Song [place] [facility] Building 1.2.840.114 350.1.13.10 4.2.7.2.686 [id number] [facility] 2019-08-27 08:15:00 2019-08-27 08:15:00 Outpatient R GERI OVALLE [facility] [id number] [facility] 2019-08-24 00:00:00 2019-08-24 00:00:00 Telephone Shamir Song [facility] Building 1.2.840.114 350.1.13.10 4.2.7.2.686 [id number] 134 [id number] [facility] 2019-08-23 09:45:00 2019-08-23 09:45:00 Outpatient R SONG BARKSDALE [facility] [id number] [facility] 2019-08-16 08:15:00 2019-08-16 08:15:00 Outpatient R [facility] [id number] [facility] 2019-08-13 00:00:00 2019-08-13 00:00:00 Telephone Shamir Song [facility] Building 1.2.840.114 350.1.13.10 4.2.7.2.686 [id number] 134 [id number] [facility] 2019-08-10 11:00:00 2019-08-10 11:00:00 Outpatient R SONG BARKSDALE [facility] [id number] [facility] 2019-08-10 09:00:14 2019-08-10 09:15:14 Reworker Visit 2, Adc Lab Song [facility] Profess[facility] nal Building 1.2.840.114 350.1.13.10 4.2.7.2.686 [id number] [facility] 2019-08-10 08:30:00 2019-08-10 08:30:00 Outpatient R [facility] [id number] [facility] 2019-08-10 00:00:00 2019-08-10 00:00:00 Orders Only Doctor Unassigned, [place] [facility] 1.2.840.114 350.1.13.10 4.2.7.2.686 [id number] [facility] 2019-08-09 08:13:27 2019-08-09 09:24:52 Routine Visit Song [facility] 1.2.840.114 350.1.13.10 4.2.7.2.686 [id number] 134 [id number] [facility] 2019-08-09 08:45:00 2019-08-09 08:45:00 Outpatient R [facility] [id number] [facility] 2019-08-01 00:00:00 2019-08-01 00:00:00 Telephone Song [facility] Profess[facility]al Building 1.2.840.114 350.1.13.10 4.2.7.2.686 [id number] 134 [id number] [facility] 2019-07-26 08:45:00 2019-07-26 08:45:00 Outpatient R [facility] [id number] [facility] 2019-07-12 08:33:49 2019-07-12 13:46:18 Routine Visit [place], [facility] Building 1.2840.114 350.1.13.10 4.2.7.2.686 [id number] 134 [id number] [facility] 2019-07-12 08:45:00 2019-07-12 08:45:00 Outpatient R SONG BARKSDALE [facility] [id number] [facility] 2019-06-29 11:00:00 2019-06-29 11:00:00 Outpatient R SHAMIR [facility] [id number] [facility] 2019-06-29 00:00:00 2019-06-29 00:00:00 Orders Only Doctor Unassigned, [place] [facility] 1.2.114 350.1.13.10 4.2.7.2.686 [id number] [facility] 2019-06-01 09:49:38 2019-06-01 13:34:06 Reworker Visit Ultrasound, Adc Mfm IsaiasNguyễnridge Ingram [facility] Building 1.284.114 350.1.13.10 4.2.7.2.686 [id number] 134 [id number] [facility] 2019-06-01 11:23:14 2019-06-01 11:57:30 Reworker Visit 2, Adc Lab Shamir [facility] Building 1.2840.114 350.1.13.10 4.2.7.2.686 [id number] [facility] 2019-06-01 10:00:00 2019-06-01 10:00:00 Outpatient P NGUYỄN KITCHENIO [facility] [id number] [facility] 2019-06-01 08:59:05 2019-06-01 09:48:35 Routine Visit Song [place] [facility] Building 1.2840.114 350.1.13.10 4.2.7.2.686 [id number] 134 [id number] [facility] 2019-06-01 00:00:00 2019-06-01 00:00:00 Orders Only Doctor Unassigned, [place] [facility] 1.2.840.114 350.1.13.10 4.2.7.2.686 [id number] [facility] 2019-05-15 00:00:00 2019-05-15 00:00:00 Telephone Song [facility] 1.2.840.114 350.1.13.10 4.2.7.2.686 [id number] 134 [id number] [facility] 2019-05-04 08:30:00 2019-05-04 08:59:50 Outpatient R SONG BARKSDALE [facility] [id number] [facility] 2019-05-04 08:23:59 2019-05-04 08:59:50 Routine Visit Song [place] [facility] Building 1.2.840.114 350.1.13.10 4.2.7.2.686 [id number] 134 [id number] [facility] 2019-04-19 00:00:00 2019-04-19 00:00:00 Telephone Song [facility] [facility] 1.2.840.114 350.1.13.10 4.2.7.2.686 [id number] 134 [id number] [facility] 2019-04-13 08:32:31 2019-04-13 19:43:26 Routine Visit Song [facility] Building 1.2.840.114 350.1.13.10 4.2.7.2.686 [id number] 134 [id number] [facility] 2019-04-13 08:30:00 2019-04-13 09:47:39 Outpatient R SONG BARKSDALE [facility] [id number] [facility] 2019-04-06 00:00:00 2019-04-06 00:00:00 Telephone Song [facility] Building 1.2.840.114 350.1.13.10 4.2.7.2.686 [id number] 134 [id number] [facility] 2019-03-16 11:15:00 2019-03-16 12:07:16 Outpatient R SONG BARKSDALE [facility] [id number] [facility] 2018-10-25 00:00:00 2018-10-25 00:00:00 [facility]phone [facility] Building [address] [id number] [facility] Results Test Description Test Time Test Comments Results Result Co m[facility]:37:56* Test Item Value Reference Range Interpretation Comme nts LIPASE (test code = 9742490647) 163 U/L 0-220 Lab Interpretation (test cod e = 31683-8) Normal [facility] WITH [id number] 17:08:54* Test Item Value Reference Range Interpretation Comme nts WBC (test code = 6690-2) 11.19 See_Comment H [Automated messa ge] The system which generated this result transmitted reference range: 4.30 - 11.10 10*3/?L. The reference range was not used to interpret this result as normal/abnormal. RBC (test code = 789-8) 4.52 See_Comment [Automated messa ge] The system which generated this result transmitted reference range: 3.93 - 5.25 10*6/?L. The reference range was not used to interpret this result as normal/abnormal. HGB (test code = 718-7) 12.7 g/dL 11.6-15.0 HCT (test code = 4544-3) 39.1 % 35.7-45.2 MCV (test code = 787-2) 86.5 fL 80.6-95.5 MCH (test code = 785-6) 28.1 pg 25.9-32.8 MCHC (test code = 786-4) 32.5 g/dL 31.6-35.1 RDW-SD (test code = 60236-3) 41.6 fL 39.0-49.9 RDW-CV (test code = 788-0) 13.2 % 12.0-15.5 PLT (test code = 777-3) 357 See_Comment [[employer]] The system which generated this result transmitted reference range: 166 - 358 10*3/?L. The reference range was not used to interpret this result as normal/abnormal. MPV (test code = 43654-7) 10.1 fL 9.5-12.9 NRBC/100 WBC (test code = 1903021967) 0.0 See_Comment [Automated [employer]] The system which generated this result transmitted reference range: 0.0 - 10.0 /100 WBCs. The reference range was not used to interpret this result as normal/abnormal. NRBC x10^3 (test code = 0943979546) See_Comment [[employer]] The system which generated this result transmitted reference range: 10*3/?L. The reference range was not used to interpret this result as normal/abnormal. GRAN MAT (NEUT) % (test code = 770-8) 60.7 % IMM GRAN % (test code = 6171384392) 0.30 % LYMPH % (test code = 736-9) 29.3 % MONO % (test code = 5905-5) 5.5 % EOS % (test code = 713-8) 3.5 % BASO % (test code = 706-2) 0.7 % GRAN MAT x10^3(ANC) (test code = 2426927576) 6.80 10*3/uL 1.88-7.09 IMM GRAN x10^3 (test code = 2114894777) 0.03 10*3/uL 0.00-0.06 LYMPH x10^3 (test code = 731-0) 3.28 10*3/uL 1.32-3.29 MONO x10^3 (test code = 742-7) 0.61 10*3/uL 0.33-0.92 EOS x10^3 (test code = 711-2) 0.39 10*3/uL 0.03-0.39 BASO x10^3 (test code = 704-7) 0.08 10*3/uL 0.01-0.07 H Lab Interpretation (test code = 52335-9) [id number] 16:49:00* Test Item Value Reference Range Interpretation Comme nts POCT PREG (test code = 1605) negative On board controls acceptable with C Line (test code = 3574) present POCT PREG LOT # (test code = 3575) [id number] POCT PREG TEST DATE ( test code = 3576) 2023-11-26 Lab Interpretation (test cod e = 16498-2) Normal [facility] Notes Upcoming Encounters Date/Time Note Provider Source 2024-02-06 10:55:05 Abdulkadir Kahn, [facility] - 02/06/2024 10:10 AM 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 Patient denies nausea, vomiting, fever, chills, cough, shortness of breath, chest pain, and calf pain PHYSICAL EXAM OF LOWER EXTREMITY: Vascular: (-) edema, BILATERAL lower extremity (-) ecchymosis (-) erythema (+) 2/4 pedal pulses, bilateral (+) Capillary Refill time: within normal limits (-) varicosities (+) pedal hair growth Neurological: (+) sensation with 5.07 Diana Ronak monofilament examination to the most distal lower extremity (-) tinel's sign (-) clonus present. Dermatological: (+) sutures intact, (+) skin margins well aligned after suture removal (-) signs of infection, (-) open wounds, (-) macerations, (-) ischemic tissue, (-) abscess, (-) drainage, (-) mal odor (-) other primary or secondary lesions (+) normal temperature when compared to contralateral limb (+) normal color, tugor, and elasticity. Musculoskeletal: (+) good visual correction from surgical procedure (+) mild pain on palpation at the surgical site, as expected 5/5 muscle strength to extrinsic pedal muscle groups (-) evidence of compartment syndrome, (-) evidence of deep vein thrombosis ASSESSMENT: S/P LEFT PLANTAR FASCIA EXCISION, JANUARY 23, 2024 TREATMENT PLAN: - Extensive visit discussing possible post-op complications - surgical site healing as expected - antibiotics - continue as directed, now taking clindamycin (discontinued Keflex) - Pain - Well controlled, now taking Toradol (discontinue [place]) - Wound - Surgical site cleansed in a sterile fashion, applied antibiotic medication, dry sterile dressing, and fracture boot - sutures -removed 02/05 without complications - Dressing - instructions provided - Weight bearing - partial weight-bearing, use boot for long distance ambulation, - DVT prophylaxis - AGAIN educated about non-weight bearing exercises - Return 2 weeks to start physical therapy Patient advised to report to my clinic or the emergency room immediately with any questions or concerns. Discussion: A detailed discussion was provided to the patient with specific reference to etiology, pathology, alternate treatment options, and prognosis. All risks and complications (including side effects) with each treatment/medication alternative were outlined in detail including but not limited to: Pain, swelling, numbness, loss of function, loss of limb, bleeding, hematoma, scarring, failure to relieve condition, surgery, additional/revisional surgery, reflex sympathetic dystrophy, complex regional pain syndrome, reoccurrence of deformity, joint stiffness, flail toe, bone and/or soft tissue infection, blood clots, pulmonary embolism, possible , delayed or non-healing. X-rays, graphs and drawings were all used to assist with patient comprehension when appropriate. All patients questions were answered and stated they fully understood. No guarantee as to results or outcome of treatment was made. I have discussed with the patient or legally responsible person prior to obtaining consent: the risks, potential benefits and drawbacks, significant alternatives, potential for problems related to recuperation, likelihood of success, and possible results of non-treatment, and the patient or thelegally responsible person has agreed to proceed. ESSOR OF PHYSICAL EDUCATION [facility] Maintenance Due Date Last Done Comments Varicella Vaccines (1 of 2 - 13+ 2-dose series) 2002 Hepatitis A Vaccines (1 of 2 - Risk 2-dose series) 2008 Hepatitis B Vaccines (1 of 3 - 19+ 3-dose series) 2008 HPV/Cotest 12/31/2019 Cervical Cancer Screening 01/06/2021 Pap Smear 01/06/2021 01/06/2018 Influenza Vaccine (#1) 2023 9, 01/06/2018 Annual Physical 03/31/2024 03/31/2023, 02/16/2021, 01/17/2020 DTaP/Tdap/Td Vaccines (3 - T d or Tdap) 08/08/2029 08/09/2019, 10/11/2017 HIB Vaccines Aged Out No longer eligi ble based on patient's age to complete this topic HPV Vaccines Aged Out No longer eligi ble based on patient's age to complete this topic IPV Vaccines Aged Out No longer eligi ble based on patient's age to complete this topic Meningococcal Vaccine Aged Out No megan ashley eligible based on patient's age to complete this topic Pneumococcal Vaccine: Pediatrics (0 to 5 Years) and At-Risk Patients (6 to 64 Years) Aged Out No longer eligible b ased on patient's age to complete this topic Rotavirus Vaccines Aged Out No longer eligible based on patient's age to complete this topic [facility]157[facility] 10:55:05 Diagnosis Abnormal foot finding - Prim librado [facility]idlrlu5356-51-13 10:55:05 [facility]w7285[facility]60[facility]22 10:55:05* Abdulkadir Khan DPM - 02/06/2024 10:10 AM 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 Patient denies nausea, vomiting, fever, chills, cough, shortness of breath, chest pain, and calf pain PHYSICAL EXAM OF LOWER EXTREMITY: Vascular: (-) edema, BILATERAL lower extremity (-) ecchymosis (-) erythema (+) 2/4 pedal pulses, bilateral (+) Capillary Refill time: within normal limits (-) varicosities (+) pedal hair growth Neurological: (+) sensation with 5.07 Diana Ronak monofilament examination to the most distal lower extremity (-) tinel's sign (-) clonus present. Dermatological: (+) sutures intact, (+) skin margins well aligned after suture removal (-) signs of infection, (-) open wounds, (-) macerations, (-) ischemic tissue, (-) abscess, (-) drainage, (-) mal odor (-) other primary or secondary lesions (+) normal temperature when compared to contralateral limb (+) normal color, tugor, and elasticity. Musculoskeletal: (+) good visual correction from surgical procedure (+) mild pain on palpation at the surgical site, as expected 5/5 muscle strength to extrinsic pedal muscle groups (-) evidence of compartment syndrome, (-) evidence of deep vein thrombosis ASSESSMENT: S/P LEFT PLANTAR FASCIA EXCISION, JANUARY 23, 2024 TREATMENT PLAN: - Extensive visit discussing possible post-op complications - surgical site healing as expected - antibiotics - continue as directed, now taking clindamycin (discontinued Keflex) - Pain - Well controlled, now taking Toradol (discontinue [place]) - Wound - Surgical site cleansed in a sterile fashion, applied antibiotic medication, dry sterile dressing, and fracture boot - sutures -removed 02/05 without complications - Dressing - instructions provided - Weight bearing - partial weight-bearing, use boot for long distance ambulation, - DVT prophylaxis - AGAIN educated about non-weight bearing exercises - Return 2 weeks to start physical therapy Patient advised to report to my clinic or the emergency room immediately with any questions or concerns. Discussion: A detailed discussion was provided to the patient with specific reference to etiology, pathology, alternate treatment options, and prognosis. All risks and complications (including side effects) with each treatment/medication alternative were outlined in detail including but not limited to: Pain, swelling, numbness, loss of function, loss of limb, bleeding, hematoma, scarring, failure to relieve condition, surgery, additional/revisional surgery, reflex sympathetic dystrophy, complex regional pain syndrome, reoccurrence of deformity, joint stiffness, flail toe, bone and/or soft tissue infection, blood clots, pulmonary embolism, possible , delayed or non-healing. X-rays, graphs and drawings were all used to assist with patient comprehension when appropriate. All patients questions were answered and stated they fully understood. No guarantee as to results or outcome of treatment was made. I have discussed with the patient or legally responsible person prior to obtaining consent: the risks, potential benefits and drawbacks, significant alternatives, potential for problems related to recuperation, likelihood of success, and possible results of non-treatment, and the patient or thelegally responsible person has agreed to proceed. [facility]2024-11-11 10:55:05Upcoming Encounters Health Maintenance Due Date Last Done Comments Varicella Vaccines (1 of 2 - 13+ 2-dose series) 2002 Hepatitis A Vaccines (1 of 2 - Risk 2-dose series) 2008 Hepatitis B Vaccines (1 of 3 - 19+ 3-dose series) 2008 HPV/Cotest 12/31/2019 Cervical Cancer Screening 01/06/2021 Pap Smear 01/06/2021 01/06/2018 Influenza Vaccine (#1) 2023 9, 01/06/2018 Annual Physical 03/31/2024 03/31/2023, 02/16/2021, 01/17/2020 DTaP/Tdap/Td Vaccines (3 - T d or Tdap) 08/08/2029 08/09/2019, 10/11/2017 HIB Vaccines Aged Out No longer eligi ble based on patient's age to complete this topic HPV Vaccines Aged Out No longer eligi ble based on patient's age to complete this topic IPV Vaccines Aged Out No longer eligi ble based on patient's age to complete this topic Meningococcal Vaccine Aged Out No megan ashley eligible based on patient's age to complete this topic Pneumococcal Vaccine: Pediatrics (0 to 5 Years) and At-Risk Patients (6 to 64 Years) Aged Out No longer eligible b ased on patient's age to complete this topic Rotavirus Vaccines Aged Out No longer eligible based on patient's age to complete this topic [facility]hpfwms1319-10-83 10:55:05 Diagnosis Abnormal foot finding - Prim [facility]2024-11-11 10:55:05 [facility]Jfqckxs9249-35-69 09:56:41Upcoming Encounters Health Maintenance Due Date Last Done Comments Varicella Vaccines (1 of 2 - 13+ 2-dose series) 2002 Hepatitis A Vaccines (1 of 2 - Risk 2-dose series) 2008 Hepatitis B Vaccines (1 of 3 - 19+ 3-dose series) 2008 HPV/Cotest 12/31/2019 Cervical Cancer Screening 01/06/2021 Pap Smear 01/06/2021 01/06/2018 Influenza Vaccine (#1) 2023 9, 01/06/2018 Annual Physical 03/31/2024 03/31/2023, 02/16/2021, 01/17/2020 DTaP/Tdap/Td Vaccines (3 - T d or Tdap) 08/08/2029 08/09/2019, 10/11/2017 HIB Vaccines Aged Out No longer eligi ble based on patient's age to complete this topic HPV Vaccines Aged Out No longer eligi ble based on patient's age to complete this topic IPV Vaccines Aged Out No longer eligi ble based on patient's age to complete this topic Meningococcal Vaccine Aged Out No megan ashley eligible based on patient's age to complete this topic Pneumococcal Vaccine: Pediatrics (0 to 5 Years) and At-Risk Patients (6 to 64 Years) Aged Out No longer eligible b ased on patient's age to complete this topic Rotavirus Vaccines Aged Out No longer eligible based on patient's age to complete this topic [facility]gzxkrk1167-20-76 09:56:41 Diagnosis Abnormal foot finding - Prim 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 Patient denies nausea, vomiting, fever, chills, cough, shortness of breath, chest pain, and calf pain PHYSICAL EXAM OF LOWER EXTREMITY: Vascular: (-) edema, BILATERAL lower extremity (-) ecchymosis (-) erythema (+) 2/4 pedal pulses, bilateral (+) Capillary Refill time: within normal limits (-) varicosities (+) pedal hair growth Neurological: (+) sensation with 5.07 Diana Ronak monofilament examination to the most distal lower extremity (-) tinel's sign (-) clonus present. Dermatological: (+) sutures intact, (+) skin margins well aligned (-) signs of infection, (-) open wounds, (-) macerations, (-) ischemic tissue, (-) abscess, (-) drainage, (-) mal odor (-) other primary or secondary lesions (+) normal temperature when compared to contralateral limb (+) normal color, tugor, and elasticity. Musculoskeletal: (+) good visual correction from surgical procedure (+) mild pain on palpation at the surgical site, as expected 5/5 muscle strength to extrinsic pedal muscle groups (-) evidence of compartment syndrome, (-) evidence of deep vein thrombosis ASSESSMENT: S/P LEFT PLANTAR FASCIA EXCISION, JANUARY 23, 2024 TREATMENT PLAN: - Extensive visit discussing possible post-op complications - surgical site healing as expected - antibiotics - continue as directed, now taking clindamycin (discontinued Keflex) - Pain - Well controlled, now taking Toradol (discontinue [place]) - Wound - Surgical site cleansed in a sterile fashion, applied antibiotic medication, dry sterile dressing, and fracture boot - Dressing - instructions provided - Weight bearing - NONE, continue with Durable Medical Equipment, patient states no complications with mobilization using devices - DVT prophylaxis - AGAIN educated about non-weight bearing exercises - Return 1 week. Patient advised to report to my clinic or the emergency room immediately with any questions or concerns. Discussion: A detailed discussion was provided to the patient with specific reference to etiology, pathology, alternate treatment options, and prognosis. All risks and complications (including side effects) with each treatment/medication alternative were outlined in detail including but not limited to: Pain, swelling, numbness, loss of function, loss of limb, bleeding, hematoma, scarring, failure to relieve condition, surgery, additional/revisional surgery, reflex sympathetic dystrophy, complex regional pain syndrome, reoccurrence of deformity, joint stiffness, flail toe, bone and/or soft tissue infection, blood clots, pulmonary embolism, possible , delayed or non-healing. X-rays, graphs and drawings were all used to assist with patient comprehension when appropriate. All patients questions were answered and stated they fully understood. No guarantee as to results or outcome of treatment was made. I have discussed with the patient or legally responsible person prior to obtaining consent: the risks, potential benefits and drawbacks, significant alternatives, potential for problems related to recuperation, likelihood of success, and possible results of non-treatment, and the patient or thelegally responsible person has agreed to proceed. [facility]2024-11-04 09:56:41Upcoming Encounters Health Maintenance Due Date Last Done Comments Varicella Vaccines (1 of 2 - 13+ 2-dose series) 2002 Hepatitis A Vaccines (1 of 2 - Risk 2-dose series) 2008 Hepatitis B Vaccines (1 of 3 - 19+ 3-dose series) 2008 HPV/Cotest 12/31/2019 Cervical Cancer Screening 01/06/2021 Pap Smear 01/06/2021 01/06/2018 Influenza Vaccine (#1) 2023 9, 01/06/2018 Annual Physical 03/31/2024 03/31/2023, 02/16/2021, 01/17/2020 DTaP/Tdap/Td Vaccines (3 - T d or Tdap) 08/08/2029 08/09/2019, 10/11/2017 HIB Vaccines Aged Out No longer eligi ble based on patient's age to complete this topic HPV Vaccines Aged Out No longer eligi ble based on patient's age to complete this topic IPV Vaccines Aged Out No longer eligi ble based on patient's age to complete this topic Meningococcal Vaccine Aged Out No megan ashley eligible based on patient's age to complete this topic Pneumococcal Vaccine: Pediatrics (0 to 5 Years) and At-Risk Patients (6 to 64 Years) Aged Out No longer eligible b ased on patient's age to complete this topic Rotavirus Vaccines Aged Out No longer eligible based on patient's age to complete this topic [facility]iqkrkt1990-09-31 09:56:41 Diagnosis Abnormal foot finding - Prim librado [facility]aObijgcu7572-58-74 09:56:41 [place] 555914-11-04 09:56:41* Abdulkadir Kahn, [place] - 01/30/2024 9:10 AM 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 Patient denies nausea, vomiting, fever, chills, cough, shortness of breath, chest pain, and calf pain PHYSICAL EXAM OF LOWER EXTREMITY: Vascular: (-) edema, BILATERAL lower extremity (-) ecchymosis (-) erythema (+) 2/4 pedal pulses, bilateral (+) Capillary Refill time: within normal limits (-) varicosities (+) pedal hair growth Neurological: (+) sensation with 5.07 Diana Ronak monofilament examination to the most distal lower extremity (-) tinel's sign (-) clonus present. Dermatological: (+) sutures intact, (+) skin margins well aligned (-) signs of infection, (-) open wounds, (-) macerations, (-) ischemic tissue, (-) abscess, (-) drainage, (-) mal odor (-) other primary or secondary lesions (+) normal temperature when compared to contralateral limb (+) normal color, tugor, and elasticity. Musculoskeletal: (+) good visual correction from surgical procedure (+) mild pain on palpation at the surgical site, as expected 5/5 muscle strength to extrinsic pedal muscle groups (-) evidence of compartment syndrome, (-) evidence of deep vein thrombosis ASSESSMENT: S/P LEFT PLANTAR FASCIA EXCISION, JANUARY 23, 2024 TREATMENT PLAN: - Extensive visit discussing possible post-op complications - surgical site healing as expected - antibiotics - continue as directed, now taking clindamycin (discontinued Keflex) - Pain - Well controlled, now taking Toradol (discontinue [place]) - Wound - Surgical site cleansed in a sterile fashion, applied antibiotic medication, dry sterile dressing, and fracture boot - Dressing - instructions provided - Weight bearing - NONE, continue with Durable Medical Equipment, patient states no complications with mobilization using devices - DVT prophylaxis - AGAIN educated about non-weight bearing exercises - Return 1 week. Patient advised to report to my clinic or the emergency room immediately with any questions or concerns. Discussion: A detailed discussion was provided to the patient with specific reference to etiology, pathology, alternate treatment options, and prognosis. All risks and complications (including side effects) with each treatment/medication alternative were outlined in detail including but not limited to: Pain, swelling, numbness, loss of function, loss of limb, bleeding, hematoma, scarring, failure to relieve condition, surgery, additional/revisional surgery, reflex sympathetic dystrophy, complex regional pain syndrome, reoccurrence of deformity, joint stiffness, flail toe, bone and/or soft tissue infection, blood clots, pulmonary embolism, possible , delayed or non-healing. X-rays, graphs and drawings were all used to assist with patient comprehension when appropriate. All patients questions were answered and stated they fully understood. No guarantee as to results or outcome of treatment was made. I have discussed with the patient or legally responsible person prior to obtaining consent: the risks, potential benefits and drawbacks, significant alternatives, potential for problems related to recuperation, likelihood of success, and possible results of non-treatment, and the patient or thelegally responsible person has agreed to proceed. [facility]2024-10-30 14:47:28* Clinic-Administered Medication (Routine) - Pending Review Specialty Diagnoses / Procedures Referred By Seamus correia Referred To Contact Diagnoses Plantar fasciitis Abdulkadir Kahn DPM [id number] [facility] [address] [place] [address] Phone: tel: fax: Referral ID Status Reason Start Date Expiration Date V isits Requested Visits Authorized [id number] Pending Review 01/25/2024 07/23/2024 1 1 [facility]2024-10-30 14:47:28Upcoming Encounters Health Maintenance Due Date Last Done Comments Annual Physical 1992 Varicella Vaccines (1 of 2 - 13+ 2-dose series) 2002 Hepatitis A Vaccines (1 of 2 - Risk 2-dose series) 2008 Hepatitis B Vaccines (1 of 3 - 19+ 3-dose series) 2008 HPV/Cotest 12/31/2019 Cervical Cancer Screening 01/06/2021 Pap Smear 01/06/2021 01/06/2018 Influenza Vaccine (#1) 2023 9, 01/06/2018 DTaP/Tdap/Td Vaccines (3 - T d or Tdap) 08/08/2029 08/09/2019, 10/11/2017 HIB Vaccines Aged Out No longer eligi ble based on patient's age to complete this topic HPV Vaccines Aged Out No longer eligi ble based on patient's age to complete this topic IPV Vaccines Aged Out No longer eligi ble based on patient's age to complete this topic Meningococcal Vaccine Aged Out No megan ashley eligible based on patient's age to complete this topic Pneumococcal Vaccine: Pediatrics (0 to 5 Years) and At-Risk Patients (6 to 64 Years) Aged Out No longer eligible b ased on patient's age to complete this topic Rotavirus Vaccines Aged Out No longer eligible based on patient's age to complete this topic [facility]ctfyfd6592-66-29 14:47:28 Diagnosis Plantar fasciitis - Primary Plantar fascial fibromatosis [facility]ngyjsv8295-27-89 14:47:28 [place] 555914-10-30 13:08:28 Patient was advised to stop taking [place] and Keflex due to allergic reaction with itching and breathing complications - PRESCRIBED 01/24 CLINDAMYCIN - PRESCRIBED 01/24 TORADOL pt called stating this is the second day of taking the hydrocodone pills she took at 9:30am and she is having problems breathing and her body is very itchy she dosent know if its an allergic reaction or should [id number] 13:56:42* Abdulkadir Kahn DPM - 01/23/2024 7:00 AM CDT OPERATIVE REPORT MEDICAL RECORD NUMBER OF PATIENT AT SURGICAL FACILITY: [id number] FACILITY: [facility] Address: [address] [place] [id number] SURGEON: Dr. Abdulkadir Kahn PATTERN CHECKER: none PREOPERATIVE DIAGNOSIS: 1. LEFT foot painful contracted plantar fascia 2. LEFT foot painful plantar calcaneal exostosis POSTOPERATIVE DIAGNOSIS: 1. LEFT foot painful contracted plantar fascia 2. LEFT foot painful plantar calcaneal exostosis PROCEDURE: 1. LEFT foot excision of plantar fascia medial band 2. LEFT foot excision of plantar calcaneal exostosis 3. LEFT foot x-ray guided needle placement with interpretation 4. LEFT foot intraoperative injection 5. LEFT lower extremity application of cast ANESTHESIA: General intubation HEMOSTASIS: Pneumatic calf tourniquet at 250 mmHg for 20 minutes ESTIMATED BLOOD LOSS: 5 cc MATERIALS: 1. 2-0 nylon 2. Betadine-soaked Adaptic, dry sterile dressing, loosely wrapped Malcolm bandage 3. Lower extremity cast with the use of Unna boot for stabilization and edema control INJECTION: 1. Intraoperative injection of 10 cc of 0.5% Marcaine plain 2. Intraoperative injection of 1 cc of dexamethasone CONDITION: STABLE COMPLICATIONS: NONE OPERATIVE FINDINGS: 1. Excessively tight medial band of the plantar fascia able to be palpated and demarcated during the surgical procedure, but was successfully reduced by excising the medial band from its origination on the calcaneus, confirmed with Hubscher maneuver 2. The plantar calcaneal exostosis was successfully able to be located with x-ray guided needle placement where the spur was removed in total until the heel was with smooth anatomical margins 3. Careful attention was paid to avoid iatrogenic injury to the neurovascular and tendinous structures INDICATION FOR PROCEDURE: The patient had undergone extensive therapy with conservative treatment options that were unsuccessful at resolving the painful plantar fasciitis. The patient had conducted research on both conservative and surgical options, which were also discussed in great detail prior to the procedure. The patient had a thorough understanding of the surgical plan after extensively discussing conservative and surgical options. The patient agreed to surgical intervention to excise the medial band of the plantar fascia and removed the plantar calcaneal exostosis after understanding the risks, benefits, complications, alternatives. Many of which were discussed in great detail were but not limited to: Pain, swelling, numbness, loss of function, loss of limb, loss of life, bleeding, blood clot, embolism, scarring, infection, ischemia, delayed/nonhealing, recurrence, over-correction, under correction, arthritis, biomechanical abnormalities, need for further surgery. PROCEDURE IN DETAIL: Prior to the patient being brought to the operative room the patient was consented, had a thorough understanding of the procedure, a thorough understanding of all complications, benefits, risks, alternatives, the patient had all questions answered, and no guarantees were given. A non-removable skin marker was used to label the planned surgical site and was confirmed with the patient. The patient was then brought to the operative room placed in a supine position under general intubation. A time-out was taken to ensure the correct patient, limb, and surgical procedure. The marked lower extremity was prepped and draped in a normal sterile fashion. Using intraoperative fluoroscopy from multiple angles a 26 gauge needle was used to locate the plantar calcaneal exostosis. This would be the planned location for the surgical incision, just distal to the weight-bearing surface of the heel. A Esmarch was utilized and the tourniquet was inflated. Using a #15 scalpel blade, a 1 cm incision from medial to lateral was created. The wound was carried down to the level of fascia using blunt dissection. A Byron elevator was used to find the medial and lateral margins of the medial band for the plantar fascia. Using a #15 scalpel blade, a wedge resection of the plantar fascia medial band was removed. Next, using blunt dissection the plantar calcaneal spur was able to be visualized and confirmed with intraoperative fluoroscopy. A coarse nasal rasp was then inserted to debride the plantar calcaneal exostosis until smooth anatomical margins were achieved. Next a fine nasal rasp was used to smooth any remaining irregular surfaces. During the debridement careful attention was paid to avoid iatrogenic injury to the neurovascular and tendinous structures. Intraoperative fluoroscopy from multiple angles was used to confirm full resection of the calcaneal spur. The tourniquet was deflated. After the tourniquet was deflated, there was no excessive bleeding confirming that there was no injury to the vascular structures. The wound was copiously irrigated with saline. The wound was inspected for any loose bodies, which were removed with careful blunt dissection. The skin was then reapproximated with 2-0 nylon. The surgical site was then injected with 10 cc of 0.5% Marcaine plain followed by 1 cc of dexamethasone. Aspiration of the syringe was conducted in order to ensure no inadvertent injection into the circulatory system. After confirmation that all the surgical counts were correct, the wound was then dressed with Betadine-soaked Adaptic, dry sterile dressing, loosely wrapped Malcolm bandage. A lower extremity cast with the use of Unna boot was applied for edema control and stabilization. The patient then recovered from anesthesia and left the operating room to the recovery room with vital signs stable and vascular status intact as noted by immediate hyperemia to this distal segment of the lower extremity. The patient tolerated the procedure and anesthesia well without complications. The primary attending doctor was scrubbed and present for the entire procedure. After a period of monitoring/observation the patient would be transferred from the post-anesthesia care unit and discharged to home. The patient has postoperative antibiotics to be taken on schedule. The patient has postoperative pain medication to be taken as needed with food. The patient is to be nonweightbearing to the surgical limb using a fracture boot, and the patient was able to comply with directions as seen in the office prior to the procedure. The patient was educated on blood clot prophylaxis with nonweightbearing exercises, and the patient was able to comply with directions as seen in the office prior to the procedure. The patient must make a follow-up appointment with me in the office within 1 week. If the patient has any questions or concerns can call my office for a sooner appointment or report immediately to the emergency room. [id number] 13:56:42 [id number] 13:56:42 Diagnosis Abnormal foot finding - Prim librado [id number] 13:56:42 [place] [id number] 11:38:41* Abdulkadir Kahn DPM - 01/09/2024 10:50 AM CDT CHIEF COMPLAINT: PLANTAR FASCIITIS, LEFT POSSIBLE LUMBAR RADICULOPATHY HISTORY OF PRESENT ILLNESS: Patient states continued irritating pain, left plantar heel despite multiple conservative treatment options Patient requesting more aggressive surgical options Patient states pain currently rated 3/10 on palpation, left plantar heel --- Patient lost to follow-up, states recently moved and had too many personal obligations to attend doctor appointments Patient states recurring pain, left plantar heel Patient requesting repeat injection, strapping, medication since this was helpful in the past Patient denies infection, injury, wounds in the bilateral lower extremity Patient states pain currently rated 6/10 on palpation, left plantar heel --- Patient states pain has slowly recurred since previous exam Patient states immobilization boot has not provided significant improvement Patient denies infection, injury, wounds Patient states pain currently rated 4/10 on palpation, left plantar heel --- Patient states painful plantar heel with 1st step after rest, starting after wearing irregular fitting shoes on a cruise, approximately June 27, 2023 Patient denies injury. Pain currently rated 4/10 on palpation, left plantar heel. Physical Exam of the lower extremity: Vascular (-) edema, bilateral lower extremity (-) ecchymosis (-) erythema (+) 2/4 pedal pulses, bilateral (+) Capillary Refill time: within normal limits (-) varicosities (+) pedal hair growth. Neurological (+) sensation with 5.07 Diana Ronak monofilament examination to the most distal lower extremity (-) clonus present. (+) tinel's sign, LEFT TARSAL TUNNEL Dermatological (-) open wounds, (-) macerations, (-) infection, (-) ischemic tissue (-) other primary or secondary lesions (+) normal temperature when compared to contralateral limb (+) normal color, tugor, and elasticity. Musculoskeletal (+) pain on palpation to the plantar medial origination of the plantar fascia with Hubscher maneuver, pain much reduced with relaxation of the plantar fascia (-) pain with lateral heel compression (+) Gastrocsoleus equinus, bilateral (+) flexible pes planus foot type, bilateral 5/5 muscle strength to extrinsic pedal muscle groups (-) evidence of compartment syndrome, (-) evidence of deep vein thrombosis. X-rays bilateral feet 08/09/2023: (+) Small plantar calcaneal spur, left (-) fracture (-) dislocation (-) arthritis (-) spur right foot Assessment Plantar fasciitis, left Possible lumbar radiculopathy Calcaneal spur Contracted plantar fascia. Treatment - Extensive visit discussing possible pedal complications associated with plantar fasciitis - radiculopathy - follow-up with undercar specialist as needed - injection - moderate response from 12/20 AND 08/07 single tendon origin/insertion, LEFT plantar heel a. Aseptic technique with sterile preparation prior to injection b. Injection of 1.5cc in 1:1 mix of 1% lidocaine plain, 0.5% Marcaine plain, dexamethasone C. Patient responded well without complications and very satisfied with treatment plan and results - strapping - moderate temporary response from 12/20 AND 08/07 to ankle and foot, Written instructions provided for icing and strapping - x-rays - reviewed - MRI - patient defers and understands risks - Medication - continue as needed 09/13 AND 08/16 MELOXICAM, completed 12/20 and 08/07 MEDROL DOSEPAK without complications, patient understands risk of meloxicam and , patient advised to test for prior to use of medication - weight bearing- reduced activity in fracture BOOT, DISPENSED 08/16, MUST OBTAIN EVEN-UP WHEN WEARING BOOT - Orthotics - Discussed custom orthotics, patient would benefit from long-term arch support for functional and accommodative applications - Shoes - educated patient on appropriate shoe gear - ANTIBIOTICS - PRESCRIBED KEFLEX, for postop prophylaxis, patient also requesting Diflucan with antibiotic for yeast infection prevention - PAIN - PRESCRIBED NORCO, for postop prophylaxis, patient advised to use appropriate medication for appropriate pain level - WEIGHT-BEARING STATUS - NONE after surgery, in fracture boot, patient states previous boot is in good condition, patient able to comply with nonweightbearing directions as seen in the office - DVT PROPHYLAXIS - nonweightbearing exercises, patient able to comply with directions is seen in the office - CONSENT - discussed in great detail, the patient agrees with the surgical plan after thorough understanding of the risks, complications, benefits, alternatives, expected healing times for both conservative and surgical options - PREOP LABS - reviewed - SURGERY - plantar fascia and spur excision, patient requesting to expedite process to surgery since cannot have surgical while planning to get Return 2 weeks for preop eval Patient advised to report to the clinic or the emergency room immediately with any questions or concerns. Patient Instructions: Discussion: A detailed discussion was provided to the patient with specific reference to etiology, pathology, alternate treatment options, and prognosis. All risks and complications (including side effects) with each treatment/medication alternative were outlined in detail including but not limited to: Pain, swelling, numbness,loss of function, loss of limb, bleeding, hematoma, scarring, failure to relieve condition, surgery, additional/revisional surgery, reflex sympathetic dystrophy, complex regional pain syndrome, reoccurrence of deformity, joint stiffness, flail toe, bone and/or soft tissue infection, blood clots, pulmonary embolism, possible , delayed or non-healing. X-rays, graphs and drawings were all used to assist with patient comprehension when appropriate. All patients questions were answered and stated they fully understood. No guarantee as to results or outcome of treatment was made. I have discussed with the patient or legally responsible person prior to obtaining consent: the risks, potential benefits and drawbacks, significant alternatives, potential for problems related to recuperation, likelihood of success, and possible results of non-treatment, and the patient or the legally responsible person has agreed to proceed. [place] [id number] 11:38:41 [id number] 11:38:41 Diagnosis Abnormal foot finding - Prim librado Plantar fasciitis, left [id number] 11:38:41 [id number] 11:38:41* Abdulkadir Kahn, DP - 01/09/2024 10:50 AM CDT CHIEF COMPLAINT: PLANTAR FASCIITIS, LEFT POSSIBLE LUMBAR RADICULOPATHY HISTORY OF PRESENT ILLNESS: Patient states continued irritating pain, left plantar heel despite multiple conservative treatment options Patient requesting more aggressive surgical options Patient states pain currently rated 3/10 on palpation, left plantar heel --- Patient lost to follow-up, states recently moved and had too many personal obligations to attend doctor appointments Patient states recurring pain, left plantar heel Patient requesting repeat injection, strapping, medication since this was helpful in the past Patient denies infection, injury, wounds in the bilateral lower extremity Patient states pain currently rated 6/10 on palpation, left plantar heel --- Patient states pain has slowly recurred since previous exam Patient states immobilization boot has not provided significant improvement Patient denies infection, injury, wounds Patient states pain currently rated 4/10 on palpation, left plantar heel --- Patient states painful plantar heel with 1st step after rest, starting after wearing irregular fitting shoes on a cruise, approximately June 27, 2023 Patient denies injury. Pain currently rated 4/10 on palpation, left plantar heel. Physical Exam of the lower extremity: Vascular (-) edema, bilateral lower extremity (-) ecchymosis (-) erythema (+) 2/4 pedal pulses, bilateral (+) Capillary Refill time: within normal limits (-) varicosities (+) pedal hair growth. Neurological (+) sensation with 5.07 Diana Ronak monofilament examination to the most distal lower extremity (-) clonus present. (+) tinel's sign, LEFT TARSAL TUNNEL Dermatological (-) open wounds, (-) macerations, (-) infection, (-) ischemic tissue (-) other primary or secondary lesions (+) normal temperature when compared to contralateral limb (+) normal color, tugor, and elasticity. Musculoskeletal (+) pain on palpation to the plantar medial origination of the plantar fascia with Hubscher maneuver, pain much reduced with relaxation of the plantar fascia (-) pain with lateral heel compression (+) Gastrocsoleus equinus, bilateral (+) flexible pes planus foot type, bilateral 5/5 muscle strength to extrinsic pedal muscle groups (-) evidence of compartment syndrome, (-) evidence of deep vein thrombosis. X-rays bilateral feet 08/09/2023: (+) Small plantar calcaneal spur, left (-) fracture (-) dislocation (-) arthritis (-) spur right foot Assessment Plantar fasciitis, left Possible lumbar radiculopathy Calcaneal spur Contracted plantar fascia. Treatment - Extensive visit discussing possible pedal complications associated with plantar fasciitis - radiculopathy - follow-up with undercar specialist as needed - injection - moderate response from 12/20 AND 08/07 single tendon origin/insertion, LEFT plantar heel a. Aseptic technique with sterile preparation prior to injection b. Injection of 1.5cc in 1:1 mix of 1% lidocaine plain, 0.5% Marcaine plain, dexamethasone C. Patient responded well without complications and very satisfied with treatment plan and results - strapping - moderate temporary response from 12/20 AND 08/07 to ankle and foot, Written instructions provided for icing and strapping - x-rays - reviewed - MRI - patient defers and understands risks - Medication - continue as needed 09/13 AND 08/16 MELOXICAM, completed 12/20 and 08/07 MEDROL DOSEPAK without complications, patient understands risk of meloxicam and , patient advised to test for prior to use of medication - weight bearing- reduced activity in fracture BOOT, DISPENSED 08/16, MUST OBTAIN EVEN-UP WHEN WEARING BOOT - Orthotics - Discussed custom orthotics, patient would benefit from long-term arch support for functional and accommodative applications - Shoes - educated patient on appropriate shoe gear - ANTIBIOTICS - PRESCRIBED KEFLEX, for postop prophylaxis, patient also requesting Diflucan with antibiotic for yeast infection prevention - PAIN - PRESCRIBED NORCO, for postop prophylaxis, patient advised to use appropriate medication for appropriate pain level - WEIGHT-BEARING STATUS - NONE after surgery, in fracture boot, patient states previous boot is in good condition, patient able to comply with nonweightbearing directions as seen in the office - DVT PROPHYLAXIS - nonweightbearing exercises, patient able to comply with directions is seen in the office - CONSENT - discussed in great detail, the patient agrees with the surgical plan after thorough understanding of the risks, complications, benefits, alternatives, expected healing times for both conservative and surgical options - PREOP LABS - reviewed - SURGERY - plantar fascia and spur excision, patient requesting to expedite process to surgery since cannot have surgical while planning to get Return 2 weeks for preop eval Patient advised to report to the clinic or the emergency room immediately with any questions or concerns. Patient Instructions: Discussion: A detailed discussion was provided to the patient with specific reference to etiology, pathology, alternate treatment options, and prognosis. All risks and complications (including side effects) with each treatment/medication alternative were outlined in detail including but not limited to: Pain, swelling, numbness,loss of function, loss of limb, bleeding, hematoma, scarring, failure to relieve condition, surgery, additional/revisional surgery, reflex sympathetic dystrophy, complex regional pain syndrome, reoccurrence of deformity, joint stiffness, flail toe, bone and/or soft tissue infection, blood clots, pulmonary embolism, possible , delayed or non-healing. X-rays, graphs and drawings were all used to assist with patient comprehension when appropriate. All patients questions were answered and stated they fully understood. No guarantee as to results or outcome of treatment was made. I have discussed with the patient or legally responsible person prior to obtaining consent: the risks, potential benefits and drawbacks, significant alternatives, potential for problems related to recuperation, likelihood of success, and possible results of non-treatment, and the patient or the legally responsible person has agreed to proceed. [id number] 11:38:41 [id number] 11:38:41 Diagnosis Abnormal foot finding - Prim librado Plantar fasciitis, left [id number] 11:38:41 [place] [id number] 11:18:51* Abdulkadir Kahn DPM - 12/28/2023 10:40 AM CDT CHIEF COMPLAINT: PLANTAR FASCIITIS, LEFT POSSIBLE LUMBAR RADICULOPATHY HISTORY OF PRESENT ILLNESS: Patient states continued irritating pain, left plantar heel despite multiple conservative treatment options Patient requesting more aggressive surgical options Patient states pain currently rated 3/10 on palpation, left plantar heel --- Patient lost to follow-up, states recently moved and had too many personal obligations to attend doctor appointments Patient states recurring pain, left plantar heel Patient requesting repeat injection, strapping, medication since this was helpful in the past Patient denies infection, injury, wounds in the bilateral lower extremity Patient states pain currently rated 6/10 on palpation, left plantar heel --- Patient states pain has slowly recurred since previous exam Patient states immobilization boot has not provided significant improvement Patient denies infection, injury, wounds Patient states pain currently rated 4/10 on palpation, left plantar heel --- Patient states painful plantar heel with 1st step after rest, starting after wearing irregular fitting shoes on a cruise, approximately June 27, 2023 Patient denies injury. Pain currently rated 4/10 on palpation, left plantar heel. Physical Exam of the lower extremity: Vascular (-) edema, bilateral lower extremity (-) ecchymosis (-) erythema (+) 2/4 pedal pulses, bilateral (+) Capillary Refill time: within normal limits (-) varicosities (+) pedal hair growth. Neurological (+) sensation with 5.07 Diana Ronak monofilament examination to the most distal lower extremity (-) clonus present. (+) tinel's sign, LEFT TARSAL TUNNEL Dermatological (-) open wounds, (-) macerations, (-) infection, (-) ischemic tissue (-) other primary or secondary lesions (+) normal temperature when compared to contralateral limb (+) normal color, tugor, and elasticity. Musculoskeletal (+) pain on palpation to the plantar medial origination of the plantar fascia with Hubscher maneuver, pain much reduced with relaxation of the plantar fascia (-) pain with lateral heel compression (+) Gastrocsoleus equinus, bilateral (+) flexible pes planus foot type, bilateral 5/5 muscle strength to extrinsic pedal muscle groups (-) evidence of compartment syndrome, (-) evidence of deep vein thrombosis. X-rays bilateral feet 08/09/2023: (+) Small plantar calcaneal spur, left (-) fracture (-) dislocation (-) arthritis (-) spur right foot Assessment Plantar fasciitis, left Possible lumbar radiculopathy Calcaneal spur Contracted plantar fascia. Treatment - Extensive visit discussing possible pedal complications associated with plantar fasciitis - radiculopathy - follow-up with undercar specialist as needed - injection - moderate response from 12/20 AND 08/07 single tendon origin/insertion, LEFT plantar heel a. Aseptic technique with sterile preparation prior to injection b. Injection of 1.5cc in 1:1 mix of 1% lidocaine plain, 0.5% Marcaine plain, dexamethasone C. Patient responded well without complications and very satisfied with treatment plan and results - strapping - moderate temporary response from 12/20 AND 08/07 to ankle and foot, Written instructions provided for icing and strapping - x-rays - reviewed - MRI - patient defers and understands risks - Medication - continue as needed 09/13 AND 08/16 MELOXICAM, completed 12/20 and 08/07 MEDROL DOSEPAK without complications, patient understands risk of meloxicam and , patient advised to test for prior to use of medication - weight bearing- reduced activity in fracture BOOT, DISPENSED 08/16, MUST OBTAIN EVEN-UP WHEN WEARING BOOT - Orthotics - Discussed custom orthotics, patient would benefit from long-term arch support for functional and accommodative applications - Shoes - educated patient on appropriate shoe gear - PREOP LABS-ORDERED 12/27 - SURGERY - plantar fascia and spur excision, patient requesting to expedite process to surgery since cannot have surgical while planning to get Return 2 weeks for preop eval Patient advised to report to the clinic or the emergency room immediately with any questions or concerns. Patient Instructions: Discussion: A detailed discussion was provided to the patient with specific reference to etiology, pathology, alternate treatment options, and prognosis. All risks and complications (including side effects) with each treatment/medication alternative were outlined in detail including but not limited to: Pain, swelling, numbness,loss of function, loss of limb, bleeding, hematoma, scarring, failure to relieve condition, surgery, additional/revisional surgery, reflex sympathetic dystrophy, complex regional pain syndrome, reoccurrence of deformity, joint stiffness, flail toe, bone and/or soft tissue infection, blood clots, pulmonary embolism, possible , delayed or non-healing. X-rays, graphs and drawings were all used to assist with patient comprehension when appropriate. All patients questions were answered and stated they fully understood. No guarantee as to results or outcome of treatment was made. I have discussed with the patient or legally responsible person prior to obtaining consent: the risks, potential benefits and drawbacks, significant alternatives, potential for problems related to recuperation, likelihood of success, and possible results of non-treatment, and the patient or the legally responsible person has agreed to proceed. [facility]ws[facility]p8066[facility] 11:18:51Upcoming Encounters Health Maintenance Due Date Last Done Comments Varicella Vaccines (1 of 2 - 13+ 2-dose series) 2002 Hepatitis A Vaccines (1 of 2 - Risk 2-dose series) 2008 Hepatitis B Vaccines (1 of 3 - 19+ 3-dose series) 2008 HPV/Cotest 12/31/2019 Cervical Cancer Screening 01/06/2021 Pap Smear 01/06/2021 01/06/2018 Influenza Vaccine (#1) 2023 9, 01/06/2018 DTaP/Tdap/Td Vaccines (3 - T d or Tdap) 08/08/2029 08/09/2019, 10/11/2017 HIB Vaccines Aged Out No longer eligi ble based on patient's age to complete this topic HPV Vaccines Aged Out No longer eligi ble based on patient's age to complete this topic IPV Vaccines Aged Out No longer eligi ble based on patient's age to complete this topic Meningococcal Vaccine Aged Out No megan ashley eligible based on patient's age to complete this topic Pneumococcal Vaccine: Pediatrics (0 to 5 Years) and At-Risk Patients (6 to 64 Years) Aged Out No longer eligible b ased on patient's age to complete this topic Rotavirus Vaccines Aged Out No longer eligible based on patient's age to complete this topic [facility]aHugvjzt2653-22-15 11:18:51 Diagnosis Abnormal foot finding - Prim librado [id number] 11:18:51 [place] [id number] 11:18:51* Abdulkadir Kahn DPM - 12/28/2023 10:40 AM CDT CHIEF COMPLAINT: PLANTAR FASCIITIS, LEFT POSSIBLE LUMBAR RADICULOPATHY HISTORY OF PRESENT ILLNESS: Patient states continued irritating pain, left plantar heel despite multiple conservative treatment options Patient requesting more aggressive surgical options Patient states pain currently rated 3/10 on palpation, left plantar heel --- Patient lost to follow-up, states recently moved and had too many personal obligations to attend doctor appointments Patient states recurring pain, left plantar heel Patient requesting repeat injection, strapping, medication since this was helpful in the past Patient denies infection, injury, wounds in the bilateral lower extremity Patient states pain currently rated 6/10 on palpation, left plantar heel --- Patient states pain has slowly recurred since previous exam Patient states immobilization boot has not provided significant improvement Patient denies infection, injury, wounds Patient states pain currently rated 4/10 on palpation, left plantar heel --- Patient states painful plantar heel with 1st step after rest, starting after wearing irregular fitting shoes on a cruise, approximately June 27, 2023 Patient denies injury. Pain currently rated 4/10 on palpation, left plantar heel. Physical Exam of the lower extremity: Vascular (-) edema, bilateral lower extremity (-) ecchymosis (-) erythema (+) 2/4 pedal pulses, bilateral (+) Capillary Refill time: within normal limits (-) varicosities (+) pedal hair growth. Neurological (+) sensation with 5.07 Diana Ronak monofilament examination to the most distal lower extremity (-) clonus present. (+) tinel's sign, LEFT TARSAL TUNNEL Dermatological (-) open wounds, (-) macerations, (-) infection, (-) ischemic tissue (-) other primary or secondary lesions (+) normal temperature when compared to contralateral limb (+) normal color, tugor, and elasticity. Musculoskeletal (+) pain on palpation to the plantar medial origination of the plantar fascia with Hubscher maneuver, pain much reduced with relaxation of the plantar fascia (-) pain with lateral heel compression (+) Gastrocsoleus equinus, bilateral (+) flexible pes planus foot type, bilateral 5/5 muscle strength to extrinsic pedal muscle groups (-) evidence of compartment syndrome, (-) evidence of deep vein thrombosis. X-rays bilateral feet 08/09/2023: (+) Small plantar calcaneal spur, left (-) fracture (-) dislocation (-) arthritis (-) spur right foot Assessment Plantar fasciitis, left Possible lumbar radiculopathy Calcaneal spur Contracted plantar fascia. Treatment - Extensive visit discussing possible pedal complications associated with plantar fasciitis - radiculopathy - follow-up with undercar specialist as needed - injection - moderate response from 12/20 AND 08/07 single tendon origin/insertion, LEFT plantar heel a. Aseptic technique with sterile preparation prior to injection b. Injection of 1.5cc in 1:1 mix of 1% lidocaine plain, 0.5% Marcaine plain, dexamethasone C. Patient responded well without complications and very satisfied with treatment plan and results - strapping - moderate temporary response from 12/20 AND 08/07 to ankle and foot, Written instructions provided for icing and strapping - x-rays - reviewed - MRI - patient defers and understands risks - Medication - continue as needed 09/13 AND 08/16 MELOXICAM, completed 12/20 and 08/07 MEDROL DOSEPAK without complications, patient understands risk of meloxicam and , patient advised to test for prior to use of medication - weight bearing- reduced activity in fracture BOOT, DISPENSED 08/16, MUST OBTAIN EVEN-UP WHEN WEARING BOOT - Orthotics - Discussed custom orthotics, patient would benefit from long-term arch support for functional and accommodative applications - Shoes - educated patient on appropriate shoe gear - PREOP LABS-ORDERED 12/27 - SURGERY - plantar fascia and spur excision, patient requesting to expedite process to surgery since cannot have surgical while planning to get Return 2 weeks for preop eval Patient advised to report to the clinic or the emergency room immediately with any questions or concerns. Patient Instructions: Discussion: A detailed discussion was provided to the patient with specific reference to etiology, pathology, alternate treatment options, and prognosis. All risks and complications (including side effects) with each treatment/medication alternative were outlined in detail including but not limited to: Pain, swelling, numbness,loss of function, loss of limb, bleeding, hematoma, scarring, failure to relieve condition, surgery, additional/revisional surgery, reflex sympathetic dystrophy, complex regional pain syndrome, reoccurrence of deformity, joint stiffness, flail toe, bone and/or soft tissue infection, blood clots, pulmonary embolism, possible , delayed or non-healing. X-rays, graphs and drawings were all used to assist with patient comprehension when appropriate. All patients questions were answered and stated they fully understood. No guarantee as to results or outcome of treatment was made. I have discussed with the patient or legally responsible person prior to obtaining consent: the risks, potential benefits and drawbacks, significant alternatives, potential for problems related to recuperation, likelihood of success, and possible results of non-treatment, and the patient or the legally responsible person has agreed to proceed. [id number] 11:18:51Upcoming Encounters Health Maintenance Due Date Last Done Comments Varicella Vaccines (1 of 2 - 13+ 2-dose series) 2002 Hepatitis A Vaccines (1 of 2 - Risk 2-dose series) 2008 Hepatitis B Vaccines (1 of 3 - 19+ 3-dose series) 2008 HPV/Cotest 12/31/2019 Cervical Cancer Screening 01/06/2021 Pap Smear 01/06/2021 01/06/2018 Influenza Vaccine (#1) 2023 9, 01/06/2018 DTaP/Tdap/Td Vaccines (3 - T d or Tdap) 08/08/2029 08/09/2019, 10/11/2017 HIB Vaccines Aged Out No longer eligi ble based on patient's age to complete this topic HPV Vaccines Aged Out No longer eligi ble based on patient's age to complete this topic IPV Vaccines Aged Out No longer eligi ble based on patient's age to complete this topic Meningococcal Vaccine Aged Out No megan ashley eligible based on patient's age to complete this topic Pneumococcal Vaccine: Pediatrics (0 to 5 Years) and At-Risk Patients (6 to 64 Years) Aged Out No longer eligible b ased on patient's age to complete this topic Rotavirus Vaccines Aged Out No longer eligible based on patient's age to complete this topic [id number] 11:18:51 Diagnosis Abnormal foot finding - Prim librado [id number] 11:18:51 [place] [id number] 10:27:26* Abdulkadir Kahn DPM - 12/21/2023 9:20 AM CDT CHIEF COMPLAINT: PLANTAR FASCIITIS, LEFT POSSIBLE LUMBAR RADICULOPATHY HISTORY OF PRESENT ILLNESS: Patient lost to follow-up, states recently moved and had too many personal obligations to attend doctor appointments Patient states recurring pain, left plantar heel Patient requesting repeat injection, strapping, medication since this was helpful in the past Patient denies infection, injury, wounds in the bilateral lower extremity Patient states pain currently rated 6/10 on palpation, left plantar heel --- Patient states pain has slowly recurred since previous exam Patient states immobilization boot has not provided significant improvement Patient denies infection, injury, wounds Patient states pain currently rated 4/10 on palpation, left plantar heel --- Patient states painful plantar heel with 1st step after rest, starting after wearing irregular fitting shoes on a cruise, approximately June 27, 2023 Patient denies injury. Pain currently rated 4/10 on palpation, left plantar heel. Physical Exam of the lower extremity: Vascular (-) edema, bilateral lower extremity (-) ecchymosis (-) erythema (+) 2/4 pedal pulses, bilateral (+) Capillary Refill time: within normal limits (-) varicosities (+) pedal hair growth. Neurological (+) sensation with 5.07 Diana Ronak monofilament examination to the most distal lower extremity (-) clonus present. (+) tinel's sign, LEFT TARSAL TUNNEL Dermatological (-) open wounds, (-) macerations, (-) infection, (-) ischemic tissue (-) other primary or secondary lesions (+) normal temperature when compared to contralateral limb (+) normal color, tugor, and elasticity. Musculoskeletal (+) pain on palpation to the plantar medial origination of the plantar fascia with Hubscher maneuver, pain much reduced with relaxation of the plantar fascia (-) pain with lateral heel compression (+) Gastrocsoleus equinus, bilateral (+) flexible pes planus foot type, bilateral 5/5 muscle strength to extrinsic pedal muscle groups (-) evidence of compartment syndrome, (-) evidence of deep vein thrombosis. X-rays bilateral feet 08/09/2023: (+) Small plantar calcaneal spur, left (-) fracture (-) dislocation (-) arthritis (-) spur right foot Assessment Plantar fasciitis, left Possible lumbar radiculopathy Calcaneal spur Contracted plantar fascia. Treatment - Extensive visit discussing possible pedal complications associated with plantar fasciitis - radiculopathy - PENDING PREVIOUSLY ORDERED x-rays - INJECTION - PROVIDED 12/20 AND 08/07 single tendon origin/insertion, LEFT plantar heel a. Aseptic technique with sterile preparation prior to injection b. Injection of 1.5cc in 1:1 mix of 1% lidocaine plain, 0.5% Marcaine plain, dexamethasone C. Patient responded well without complications and very satisfied with treatment plan and results - strapping - APPLIED 12/20 AND 08/07 to ankle and foot, Written instructions provided for icing and strapping - X-RAYS - PENDING PREVIOUSLY ORDERED 09/13 lumbar spine - MRI - patient defers, states unable to ORDERED 09/13 - Medication - PRESCRIBED 12/20 and 08/07 MEDROL DOSEPAK, continue as needed 09/13 AND 08/16 MELOXICAM, patient understands risk of meloxicam and , patient advised to test for prior to use of medication - weight bearing- reduced activity in fracture BOOT, DISPENSED 08/16, MUST OBTAIN EVEN-UP WHEN WEARING BOOT - Orthotics - Discussed custom orthotics, patient would benefit from long-term arch support for functional and accommodative applications - Shoes - educated patient on appropriate shoe gear - SURGERY - plantar fascia and spur excision, patient requesting to expedite process to surgery since cannot have surgical while planning to get Return 1 week for injection eval and possible surgical planning since patient defers further studies of the LUMBAR SPINE Patient advised to report to the clinic or the emergency room immediately with any questions or concerns. Patient Instructions: Discussion: A detailed discussion was provided to the patient with specific reference to etiology, pathology, alternate treatment options, and prognosis. All risks and complications (including side effects) with each treatment/medication alternative were outlined in detail including but not limited to: Pain, swelling, numbness,loss of function, loss of limb, bleeding, hematoma, scarring, failure to relieve condition, surgery, additional/revisional surgery, reflex sympathetic dystrophy, complex regional pain syndrome, reoccurrence of deformity, joint stiffness, flail toe, bone and/or soft tissue infection, blood clots, pulmonary embolism, possible , delayed or non-healing. X-rays, graphs and drawings were all used to assist with patient comprehension when appropriate. All patients questions were answered and stated they fully understood. No guarantee as to results or outcome of treatment was made. I have discussed with the patient or legally responsible person prior to obtaining consent: the risks, potential benefits and drawbacks, significant alternatives, potential for problems related to recuperation, likelihood of success, and possible results of non-treatment, and the patient or the legally responsible person has agreed to proceed. [facility]aWapivtv2724-26-53 10:27:26Upcoming Encounters Health Maintenance Due Date Last Done Comments Varicella Vaccines (1 of 2 - 13+ 2-dose series) 2002 Hepatitis A Vaccines (1 of 2 - Risk 2-dose series) 2008 Hepatitis B Vaccines (1 of 3 - 19+ 3-dose series) 2008 HPV/Cotest 12/31/2019 Cervical Cancer Screening 01/06/2021 Pap Smear 01/06/2021 01/06/2018 Influenza Vaccine (#1) 2023 9, 01/06/2018 DTaP/Tdap/Td Vaccines (3 - T d or Tdap) 08/08/2029 08/09/2019, 10/11/2017 HIB Vaccines Aged Out No longer eligi ble based on patient's age to complete this topic HPV Vaccines Aged Out No longer eligi ble based on patient's age to complete this topic IPV Vaccines Aged Out No longer eligi ble based on patient's age to complete this topic Meningococcal Vaccine Aged Out No megan ashley eligible based on patient's age to complete this topic Pneumococcal Vaccine: Pediatrics (0 to 5 Years) and At-Risk Patients (6 to 64 Years) Aged Out No longer eligible b ased on patient's age to complete this topic Rotavirus Vaccines Aged Out No longer eligible based on patient's age to complete this topic [id number] 10:27:26 Diagnosis Abnormal foot finding - Prim librado [facility]aHktbsya3174-44-82 10:27:26 [facility]aRjyrjse4403-62-94 10:27:26* Abdulkadir Kahn DPM - 12/21/2023 9:20 AM CDT CHIEF COMPLAINT: PLANTAR FASCIITIS, LEFT POSSIBLE LUMBAR RADICULOPATHY HISTORY OF PRESENT ILLNESS: Patient lost to follow-up, states recently moved and had too many personal obligations to attend doctor appointments Patient states recurring pain, left plantar heel Patient requesting repeat injection, strapping, medication since this was helpful in the past Patient denies infection, injury, wounds in the bilateral lower extremity Patient states pain currently rated 6/10 on palpation, left plantar heel --- Patient states pain has slowly recurred since previous exam Patient states immobilization boot has not provided significant improvement Patient denies infection, injury, wounds Patient states pain currently rated 4/10 on palpation, left plantar heel --- Patient states painful plantar heel with 1st step after rest, starting after wearing irregular fitting shoes on a cruise, approximately June 27, 2023 Patient denies injury. Pain currently rated 4/10 on palpation, left plantar heel. Physical Exam of the lower extremity: Vascular (-) edema, bilateral lower extremity (-) ecchymosis (-) erythema (+) 2/4 pedal pulses, bilateral (+) Capillary Refill time: within normal limits (-) varicosities (+) pedal hair growth. Neurological (+) sensation with 5.07 Diana Ronak monofilament examination to the most distal lower extremity (-) clonus present. (+) tinel's sign, LEFT TARSAL TUNNEL Dermatological (-) open wounds, (-) macerations, (-) infection, (-) ischemic tissue (-) other primary or secondary lesions (+) normal temperature when compared to contralateral limb (+) normal color, tugor, and elasticity. Musculoskeletal (+) pain on palpation to the plantar medial origination of the plantar fascia with Hubscher maneuver, pain much reduced with relaxation of the plantar fascia (-) pain with lateral heel compression (+) Gastrocsoleus equinus, bilateral (+) flexible pes planus foot type, bilateral 5/5 muscle strength to extrinsic pedal muscle groups (-) evidence of compartment syndrome, (-) evidence of deep vein thrombosis. X-rays bilateral feet 08/09/2023: (+) Small plantar calcaneal spur, left (-) fracture (-) dislocation (-) arthritis (-) spur right foot Assessment Plantar fasciitis, left Possible lumbar radiculopathy Calcaneal spur Contracted plantar fascia. Treatment - Extensive visit discussing possible pedal complications associated with plantar fasciitis - radiculopathy - PENDING PREVIOUSLY ORDERED x-rays - INJECTION - PROVIDED 12/20 AND 08/07 single tendon origin/insertion, LEFT plantar heel a. Aseptic technique with sterile preparation prior to injection b. Injection of 1.5cc in 1:1 mix of 1% lidocaine plain, 0.5% Marcaine plain, dexamethasone C. Patient responded well without complications and very satisfied with treatment plan and results - strapping - APPLIED 12/20 AND 08/07 to ankle and foot, Written instructions provided for icing and strapping - X-RAYS - PENDING PREVIOUSLY ORDERED 09/13 lumbar spine - MRI - patient defers, states unable to ORDERED 09/13 - Medication - PRESCRIBED 12/20 and 08/07 MEDROL DOSEPAK, continue as needed 09/13 AND 08/16 MELOXICAM, patient understands risk of meloxicam and , patient advised to test for prior to use of medication - weight bearing- reduced activity in fracture BOOT, DISPENSED 08/16, MUST OBTAIN EVEN-UP WHEN WEARING BOOT - Orthotics - Discussed custom orthotics, patient would benefit from long-term arch support for functional and accommodative applications - Shoes - educated patient on appropriate shoe gear - SURGERY - plantar fascia and spur excision, patient requesting to expedite process to surgery since cannot have surgical while planning to get Return 1 week for injection eval and possible surgical planning since patient defers further studies of the LUMBAR SPINE Patient advised to report to the clinic or the emergency room immediately with any questions or concerns. Patient Instructions: Discussion: A detailed discussion was provided to the patient with specific reference to etiology, pathology, alternate treatment options, and prognosis. All risks and complications (including side effects) with each treatment/medication alternative were outlined in detail including but not limited to: Pain, swelling, numbness,loss of function, loss of limb, bleeding, hematoma, scarring, failure to relieve condition, surgery, additional/revisional surgery, reflex sympathetic dystrophy, complex regional pain syndrome, reoccurrence of deformity, joint stiffness, flail toe, bone and/or soft tissue infection, blood clots, pulmonary embolism, possible , delayed or non-healing. X-rays, graphs and drawings were all used to assist with patient comprehension when appropriate. All patients questions were answered and stated they fully understood. No guarantee as to results or outcome of treatment was made. I have discussed with the patient or legally responsible person prior to obtaining consent: the risks, potential benefits and drawbacks, significant alternatives, potential for problems related to recuperation, likelihood of success, and possible results of non-treatment, and the patient or the legally responsible person has agreed to proceed. [facility]Qzgyoqc3467-14-41 10:27:26Upcoming Encounters Health Maintenance Due Date Last Done Comments Varicella Vaccines (1 of 2 - 13+ 2-dose series) 2002 Hepatitis A Vaccines (1 of 2 - Risk 2-dose series) 2008 Hepatitis B Vaccines (1 of 3 - 19+ 3-dose series) 2008 HPV/Cotest 12/31/2019 Cervical Cancer Screening 01/06/2021 Pap Smear 01/06/2021 01/06/2018 Influenza Vaccine (#1) 2023 9, 01/06/2018 DTaP/Tdap/Td Vaccines (3 - T d or Tdap) 08/08/2029 08/09/2019, 10/11/2017 HIB Vaccines Aged Out No longer eligi ble based on patient's age to complete this topic HPV Vaccines Aged Out No longer eligi ble based on patient's age to complete this topic IPV Vaccines Aged Out No longer eligi ble based on patient's age to complete this topic Meningococcal Vaccine Aged Out No megan ashley eligible based on patient's age to complete this topic Pneumococcal Vaccine: Pediatrics (0 to 5 Years) and At-Risk Patients (6 to 64 Years) Aged Out No longer eligible b ased on patient's age to complete this topic Rotavirus Vaccines Aged Out No longer eligible based on patient's age to complete this topic [facility]aXnlcfxk0466-37-47 10:27:26 Diagnosis Abnormal foot finding - Prim librado [facility]aQbiqwpy4908-31-22 10:27:26 [facility]aBwahpjg5309-10-03 12:11:43 Diagnosis Plantar fasciitis - Primary Plantar fascial fibromatosis Abnormal foot finding [facility]aMjkckjk3499-86-39 12:11:43 [facility]aKqubeeg4112-87-90 12:11:43* Abdulkadir Kahn DPM - 08/17/2023 11:40 AM CDT FULL NOTE TO FOLLOW [place] [address]-07-02 12:11:43 [facility]aFhewmnj4512-02-42 12:11:43 Diagnosis Plantar fasciitis - Primary Plantar fascial fibromatosis Abnormal foot finding [facility]aLsuolne5728-75-06 12:11:43 [place] [address]-07-02 12:11:43* Abdulkadir Kahn DPM - 08/17/2023 11:40 AM CDT FULL NOTE TO FOLLOW [facility]aOnnyipm5124-74-81 12:11:43 [place] [address]-06-20 15:43:15* Abdulkadir Kahn DPM - 09/14/2023 9:10 AM CDT CHIEF COMPLAINT: POSSIBLE LUMBAR RADICULOPATHY PLANTAR FASCIITIS, LEFT --- Patient states pain has slowly recurred since previous exam Patient states immobilization boot has not provided significant improvement Patient denies infection, injury, wounds Patient states pain currently rated 4/10 on palpation, left plantar heel --- Patient states painful plantar heel with 1st step after rest, starting after wearing irregular fitting shoes on a cruise, approximately June 27, 2023 Patient denies injury. Pain currently rated 4/10 on palpation, left plantar heel. Physical Exam of the lower extremity: Vascular (-) edema, bilateral lower extremity (-) ecchymosis (-) erythema (+) 2/4 pedal pulses, bilateral (+) Capillary Refill time: within normal limits (-) varicosities (+) pedal hair growth. Neurological (+) sensation with 5.07 Diana Ronak monofilament examination to the most distal lower extremity (-) clonus present. (+) tinel's sign, LEFT TARSAL TUNNEL Dermatological (-) open wounds, (-) macerations, (-) infection, (-) ischemic tissue (-) other primary or secondary lesions (+) normal temperature when compared to contralateral limb (+) normal color, tugor, and elasticity. Musculoskeletal (+) pain on palpation to the plantar medial origination of the plantar fascia with Hubscher maneuver, pain much reduced with relaxation of the plantar fascia (-) pain with lateral heel compression (+) Gastrocsoleus equinus, bilateral (+) flexible pes planus foot type, bilateral 5/5 muscle strength to extrinsic pedal muscle groups (-) evidence of compartment syndrome, (-) evidence of deep vein thrombosis. X-rays bilateral feet 08/09/2023: (+) Small plantar calcaneal spur, left (-) fracture (-) dislocation (-) arthritis (-) spur right foot Assessment Plantar fasciitis, left Possible lumbar radiculopathy Calcaneal spur Contracted plantar fascia. Treatment - Extensive visit discussing possible pedal complications associated with plantar fasciitis - radiculopathy- ordered x-rays - INJECTION - responded well to 08/07 single tendon origin/insertion, LEFT plantar heel a. Aseptic technique with sterile preparation prior to injection b. Injection of 1.5cc in 1:1 mix of 1% lidocaine plain, 0.5% Marcaine plain, dexamethasone - strapping - responded well to 08/07 to ankle and foot, Written instructions provided for icing and strapping - X-RAYS - ORDERED 09/13 lumbar spine - MRI - ORDERED 09/13 - Medication - REFILLED 09/13 AND 08/16 MELOXICAM, responded well to 08/07 MEDROL DOSEPAK, refilled medication, patient states dog spilled medication, patient understands risk of meloxicam and , patient advised to test for prior to use of medication - weight bearing- reduced activity in fracture BOOT, DISPENSED 08/16, MUST OBTAIN EVEN-UP WHEN WEARING BOOT - Orthotics - Discussed custom orthotics, patient would benefit from long-term arch support for functional and accommodative applications - Shoes - educated patient on appropriate shoe gear - SURGERY - plantar fascia and spur excision, patient requesting to expedite process to surgery since cannot have surgical while planning to get Return 2 weeks for an MRI AND LUMBAR SPINE results Patient advised to report to the clinic or the emergency room immediately with any questions or concerns. Patient Instructions: Discussion: A detailed discussion was provided to the patient with specific reference to etiology, pathology, alternate treatment options, and prognosis. All risks and complications (including side effects) with each treatment/medication alternative were outlined in detail including but not limited to: Pain, swelling, numbness,loss of function, loss of limb, bleeding, hematoma, scarring, failure to relieve condition, surgery, additional/revisional surgery, reflex sympathetic dystrophy, complex regional pain syndrome, reoccurrence of deformity, joint stiffness, flail toe, bone and/or soft tissue infection, blood clots, pulmonary embolism, possible , delayed or non-healing. X-rays, graphs and drawings were all used to assist with patient comprehension when appropriate. All patients questions were answered and stated they fully understood. No guarantee as to results or outcome of treatment was made. I have discussed with the patient or legally responsible person prior to obtaining consent: the risks, potential benefits and drawbacks, significant alternatives, potential for problems related to recuperation, likelihood of success, and possible results of non-treatment, and the patient or the legally responsible person has agreed to proceed. [id number] 15:43:15Upcoming Encounters Health Maintenance Due Date Last Done Comments Varicella Vaccines (1 of 2 - 13+ 2-dose series) 2002 DTaP/Tdap/Td Vaccines (1 - Tdap) 2008 Hepatitis B Vaccines (1 of 3 - 19+ 3-dose series) 2008 Pap Smear 2010 Cervical Cancer Screening 12/31/2019 HPV/Cotest 12/31/2019 Influenza Vaccine (Season Ended) 2023 HIB Vaccines Aged Out No longer eligi ble based on patient's age to complete this topic HPV Vaccines Aged Out No longer eligi ble based on patient's age to complete this topic Hepatitis A Vaccines Aged Out No long er eligible based on patient's age to complete this topic IPV Vaccines Aged Out No longer eligi ble based on patient's age to complete this topic Meningococcal Vaccine Aged Out No megan ashley eligible based on patient's age to complete this topic Pneumococcal Vaccine: Pediat rics (0 to 5 Years) and At-Risk Patients (6 to 64 Years) Aged Out No longer eligible b ased on patient's age to complete this topic Rotavirus Vaccines Aged Out No longer eligible based on patient's age to complete this topic [facility]bvaxcs0330-09-[facility] 15:43:15 Diagnosis Abnormal foot finding - Rosy pavon [id number] 15:43:15 [id number] 15:43:15* Abdulkadir Kahn, [place] - 09/14/2023 9:10 AM CDT CHIEF COMPLAINT: POSSIBLE LUMBAR RADICULOPATHY PLANTAR FASCIITIS, LEFT --- Patient states pain has slowly recurred since previous exam Patient states immobilization boot has not provided significant improvement Patient denies infection, injury, wounds Patient states pain currently rated 4/10 on palpation, left plantar heel --- Patient states painful plantar heel with 1st step after rest, starting after wearing irregular fitting shoes on a cruise, approximately June 27, 2023 Patient denies injury. Pain currently rated 4/10 on palpation, left plantar heel. Physical Exam of the lower extremity: Vascular (-) edema, bilateral lower extremity (-) ecchymosis (-) erythema (+) 2/4 pedal pulses, bilateral (+) Capillary Refill time: within normal limits (-) varicosities (+) pedal hair growth. Neurological (+) sensation with 5.07 Diana Ronak monofilament examination to the most distal lower extremity (-) clonus present. (+) tinel's sign, LEFT TARSAL TUNNEL Dermatological (-) open wounds, (-) macerations, (-) infection, (-) ischemic tissue (-) other primary or secondary lesions (+) normal temperature when compared to contralateral limb (+) normal color, tugor, and elasticity. Musculoskeletal (+) pain on palpation to the plantar medial origination of the plantar fascia with Hubscher maneuver, pain much reduced with relaxation of the plantar fascia (-) pain with lateral heel compression (+) Gastrocsoleus equinus, bilateral (+) flexible pes planus foot type, bilateral 5/5 muscle strength to extrinsic pedal muscle groups (-) evidence of compartment syndrome, (-) evidence of deep vein thrombosis. X-rays bilateral feet 08/09/2023: (+) Small plantar calcaneal spur, left (-) fracture (-) dislocation (-) arthritis (-) spur right foot Assessment Plantar fasciitis, left Possible lumbar radiculopathy Calcaneal spur Contracted plantar fascia. Treatment - Extensive visit discussing possible pedal complications associated with plantar fasciitis - radiculopathy- ordered x-rays - INJECTION - responded well to 08/07 single tendon origin/insertion, LEFT plantar heel a. Aseptic technique with sterile preparation prior to injection b. Injection of 1.5cc in 1:1 mix of 1% lidocaine plain, 0.5% Marcaine plain, dexamethasone - strapping - responded well to 08/07 to ankle and foot, Written instructions provided for icing and strapping - X-RAYS - ORDERED 09/13 lumbar spine - MRI - ORDERED 09/13 - Medication - REFILLED 09/13 AND 08/16 MELOXICAM, responded well to 08/07 MEDROL DOSEPAK, refilled medication, patient states dog spilled medication, patient understands risk of meloxicam and , patient advised to test for prior to use of medication - weight bearing- reduced activity in fracture BOOT, DISPENSED 08/16, MUST OBTAIN EVEN-UP WHEN WEARING BOOT - Orthotics - Discussed custom orthotics, patient would benefit from long-term arch support for functional and accommodative applications - Shoes - educated patient on appropriate shoe gear - SURGERY - plantar fascia and spur excision, patient requesting to expedite process to surgery since cannot have surgical while planning to get Return 2 weeks for an MRI AND LUMBAR SPINE results Patient advised to report to the clinic or the emergency room immediately with any questions or concerns. Patient Instructions: Discussion: A detailed discussion was provided to the patient with specific reference to etiology, pathology, alternate treatment options, and prognosis. All risks and complications (including side effects) with each treatment/medication alternative were outlined in detail including but not limited to: Pain, swelling, numbness,loss of function, loss of limb, bleeding, hematoma, scarring, failure to relieve condition, surgery, additional/revisional surgery, reflex sympathetic dystrophy, complex regional pain syndrome, reoccurrence of deformity, joint stiffness, flail toe, bone and/or soft tissue infection, blood clots, pulmonary embolism, possible , delayed or non-healing. X-rays, graphs and drawings were all used to assist with patient comprehension when appropriate. All patients questions were answered and stated they fully understood. No guarantee as to results or outcome of treatment was made. I have discussed with the patient or legally responsible person prior to obtaining consent: the risks, potential benefits and drawbacks, significant alternatives, potential for problems related to recuperation, likelihood of success, and possible results of non-treatment, and the patient or the legally responsible person has agreed to proceed. [id number] 15:43:15Upcoming Encounters Health Maintenance Due Date Last Done Comments Varicella Vaccines (1 of 2 - 13+ 2-dose series) 2002 DTaP/Tdap/Td Vaccines (1 - Tdap) 2008 Hepatitis B Vaccines (1 of 3 - 19+ 3-dose series) 2008 Pap Smear 2010 Cervical Cancer Screening 12/31/2019 HPV/Cotest 12/31/2019 Influenza Vaccine (Season Ended) 2023 HIB Vaccines Aged Out No longer eligi ble based on patient's age to complete this topic HPV Vaccines Aged Out No longer eligi ble based on patient's age to complete this topic Hepatitis A Vaccines Aged Out No long er eligible based on patient's age to complete this topic IPV Vaccines Aged Out No longer eligi ble based on patient's age to complete this topic Meningococcal Vaccine Aged Out No megan ashley eligible based on patient's age to complete this topic Pneumococcal Vaccine: Pediat rics (0 to 5 Years) and At-Risk Patients (6 to 64 Years) Aged Out No longer eligible b ased on patient's age to complete this topic Rotavirus Vaccines Aged Out No longer eligible based on patient's age to complete this topic [facility]aTkrnqrc3944-62-64 15:43:15 Diagnosis Abnormal foot finding - Prim librado [id number] 15:43:15 [place] [id number] 17:50:00 Regarding: contant pain in sternum area down to gall bladder, call back Dillan [phone] ----- Message from Alberto Martinez sent at 04/03/2023 5:46 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 Would like a nurse to call back dillan [phone] NA Hector [facility]NL[facility] HospitalIrgqsf2261-29-33 17:50:00 Adult Triage Assessment Last Clinic Visit: last seen Tuesday04/01/23 by non-[facility] provider [facility] for annual check up Primary Symptom: had some extreme jaw pain - resolved, "sternum pain" Onset / Duration: jaw pain started 1734 - resolved, sternum pain 1734 ongoing Location / Description: chest/sternum pain between breasts "sharp", "constant" Pain / Severity: 1/10 now, sternum pain 4-5/10 about 5 minutes ago Associated Symptoms: reports a lot of acid reflux, reports has gained 15 lbs. In past 4-5 months, denies difficulty breathing, "I'm more nervous than anything", denies feeling dizzy/lightheaded, during call at 1814 "the pain is all gone now" Fever / Method: did not check temp, denies feeling hot Hydration: drinking a little less than usual amount today, urinating as usual today Treatment so far: laying down Effect on ADL's: significant change LMP: 03/26/23 Pre-existing condition / Immunocompromised: anxiety and depression [facility] Reason for Disposition Pain also in shoulder(s) or arm(s) or jaw [1] Chest pain lasts > 5 minutes AND [2] occurred in past 3 days (72 hours) Protocols used: Chest [id number] Assessment and triage done, disposition to go to ED now. Callback/EMS 911 warnings given. Pt voiced understanding and agreement with plan of care, states will be taken to [facility] ED. [facility]
[2024-07-18] MEDS ORDERED: KETOROLAC 30 MG/ML INJ ONE (11:18)
[2024-07-18] MEDS ORDERED: ONDANSETRON 4 MG/2 ML VIAL ONE (11:18)
[2024-07-18] MEDS ORDERED: NA CHLORIDE 0.9% 1,000 ML ONE (11:19)
[2024-07-18] MEDS ORDERED: MORPHINE 4 MG/ML SYR ONE ×2 (11:19→13:44)
[2024-07-18 11:30] LABS: Absolute Basophils 0.1 K/uL (0-0.5); Absolute Eosinophils 0.3 K/uL (0-0.5); Absolute Lymphocytes (CBC) 1.8 K/uL (0.7-4.9); Absolute Monocytes 0.7 K/uL (0.1-1.3); Absolute Neutrophil 8.7 K/uL (1.8-8.0); Eosinophils % 2.2 % (0-4.4); Hematocrit 37.3 % (36.0-45.0); Hemoglobin 12.5 g/dL (12.0-15.0); Lymphocytes % 15.5 % (15.3-44.8); MCH 28.2 pg (27.0-35.0); MCHC 33.4 g/dL (32.0-36.0); MCV 84.4 fL (80-100); MPV 9.1 fL (7.6-11.3); Monocytes % 6.4 % (3.3-12.3); Neutrophils % 74.9 % (41.7-73.7); Platelets 287 thou/uL (152-406); RBC Red Blood Cell Count 4.42 M/uL (3.86-4.86)
[2024-07-18 11:34] LABS: Specific Gravity 1.021 (1.005-1.030)
[2024-07-18 11:36] LABS: Specific Gravity 1.021 (1.005-1.030); Sqamous Epithelial 20-50 /HPF (None Seen); Urine Bacteria 20-50 /HPF (<20); Urine Bilirubin NEGATIVE (Negative); Urine Blood 3+ (Negative); Urine Clarity Extremely Turbid (Clear); Urine Color Yellow (Yellow); Urine Culture Reflex Order REFLEXED; Urine Glucose NEGATIVE (Negative); Urine Ketones NEGATIVE (Negative); Urine Microscopic Reflex YN ORDER UMIC; Urine Mucus 3+ /HPF (None Seen); Urine Nitrite NEGATIVE (Negative); Urine Protein 2+ (Negative); Urine RBC >50 /HPF (None Seen); Urine Urobilinogen Normal (Normal); Urine WBC >50 /HPF (<5); Urine pH 7.5 (5.0-7.0)
[2024-07-18 11:47] LABS: ALT/SGPT 26 U/L (13-56); Albumin 3.5 g/dL (3.4-5.0); Albumin/Globulin Ratio 0.9 (1.1-1.8); Alkaline Phosphatase 98 U/L (45-117); Anion Gap 6.1 mEq/L (5.0-15.0); BUN Blood Urea Nitrogen 11 mg/dL (7-18); Bicarbonate 27 mEq/L (21-32); Bilirubin Total 0.4 mg/dL (0.2-1.0); Globulin 4.1 g/dL (2.3-3.5); Glomerular Filtration Rate 98 ml/min (=/>90); Glucose Level 117 mg/dL (74-106); Lipase 26 U/L (13-75); Potassium 4.1 mEq/L (3.5-5.1); Protein, Total 7.6 g/dL (6.4-8.2); Sodium Level 137 mEq/L (136-145)
[2024-07-18 11:48] LABS: AST/SGOT < 10 U/L (15-37)
--- NOTE | 2024-07-18 12:53 | RAD REPORT ---
EXAMINATION: CT Abdomen Pelvis Wo Contrast CLINICAL INDICATION: Female, 33 years old. Flank pain;Kidney stones TECHNIQUE: CT abdomen and pelvis was performed, without IV contrast, as per department protocol. Axia l, sagittal and coronal reconstructions were obtained. One or more of the following dose reduction techniques were used: Automated exposure control, adjustment of the mA and kV according to the patien t size, and iterative reconstruction. Unless otherwise specified, incidental findings do not require dedicated imaging follow-up. COMPARISON: No prior exam. FINDINGS: The lack of intravenous contrast limits the sensitivity of this exam for evaluation of solid visceral organs, vascular structures, and retroperitoneum. LOWER CHEST: The visualized lung bases are clear. LIVER: Normal in size and contour. No focal lesion. BILIARY SYSTEM: Status post cholecystectomy. SPLEEN: Normal size. No focal lesion. PANCREAS: No mass, ductal dilation, or kristi-pancreatic fluid. ADRENALS: Normal; no mass. KIDNEYS AND URETERS: Bilateral small calculi near the pelves, largest at the right upper to midpole m easuring 2-3MM. Normal size and contour. No hydronephrosis. URINARY BLADDER: Normal contour. GASTROINTESTINAL TRACT: No evidence of bowel obstruction, significant free fluid, free air or abscess . APPENDIX: Appendix surgically absent. LYMPH NODES: No lymphadenopathy. MUSCULOSKELETAL: No acute or suspicious osseous abnormality. ADDITIONAL FINDINGS: Collapsed breast implant capsules bilaterally.. IMPRESSION: Bilateral small nonobstructing renal calculi not exceeding 3 mm. No hydroureteronephrosis. Other incidental findings as above..
[2024-07-18] MEDS ORDERED: Levofloxacin500mg IV 500 MG/100 ML BAG IV ONE (12:58)
--- NOTE | 2024-07-18 13:32 | ER ---
Nurse's Notes [facility] Name: Mayda Argueta Age: 33 yrs Sex: Female : 1990 Arrival Date: 07/18/2024 Time: 10:28 Bed 12 Private MD: Mago Gagnon Diagnosis: Pyelonephritis, abdominal pain, left flank pain Presentation: 07/18 10:36 Chief complaint: Patient states: feels like she is passing a kidney stone, left sided iw flank pain since 11 last night , previous hx of kidney stones, pain radiates to left lower abd , has been taking Flomax and toradol. Coronavirus screen: At this time, the client does not indicate any symptoms associated with coronavirus-19. Ebola Screen: No symptoms or risks identified at this time. Initial Sepsis Screen: Does the patient meet any 2 criteria? No. Patient's initial sepsis screen is negative. Does the patient have a suspected source of infection? No. Patient's initial sepsis screen is negative. Risk Assessment: Do you want to hurt yourself or someone else? Patient reports no desire to harm self or others. Onset of symptoms was July 17, 2024. 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 - Infectious Disease History:: Denies. - Social history:: Smoking status: Patient denies any tobacco usage or history of. Screenin:35 [facility] ED Fall Risk Assessment (Adult) History of falling in the last 3 months, kc6 including since admission No falls in past 3 months (0 pts) Confusion or Disorientation No (0 pts) Intoxicated or Sedated No (0 pts) Impaired Gait No (0 pts) Mobility Assist Device Used No (0 pt) Altered Elimination No (0 pt) Score/Fall Risk Level 0 - 2 = Low Risk Oriented to surroundings, Maintained a safe environment. Abuse screen: Denies threats or abuse. Denies injuries from another. Nutritional screening: No deficits noted. Tuberculosis screening: No symptoms or risk factors identified. Assessment: 11:36 General: Appears in no apparent distress. comfortable, well groomed, well developed, kc6 Behavior is calm, cooperative, appropriate for age. Pain: Complains of pain in left low back and left lower quadrant. Neuro: Level of Consciousness is awake, alert, obeys commands, Oriented to person, place, time, situation, Appropriate for age. Cardiovascular: Capillary refill < 3 seconds. Respiratory: Airway is patent Trachea midline Respiratory effort is even, unlabored, Respiratory pattern is regular, symmetrical. GI: Abdomen is flat, non-distended, Bowel sounds present X 4 quads. Abd is soft X 4 quads Abdomen is tender to palpation in left lower quadrant Reports lower abdominal pain, Patient currently denies diarrhea, nausea, vomiting. : Reports pain in left flank(s), in lower back. EENT: No signs and/or symptoms were reported regarding the EENT system. Derm: No signs and/or symptoms reported regarding the dermatologic system. Skin is intact, is healthy with good turgor, Skin is pink, warm \T\ dry. Musculoskeletal: No signs and/or symptoms reported regarding the musculoskeletal system. Circulation, motion, and sensation intact. Range of motion: intact in all extremities. 12:37 Reassessment: Patient appears in no apparent distress at this time. No changes from kc6 previously documented assessment. Patient and/or family updated on plan of care and expected duration. Pain level reassessed. Patient is alert, oriented x 3, equal unlabored respirations, skin warm/dry/pink. 13:47 Reassessment: No changes from previously documented assessment. Patient and/or family ll1 updated on plan of care and expected duration. Pain level reassessed. Patient is alert, oriented x 3, equal unlabored respirations, skin warm/dry/pink. 13:56 Reassessment: No changes from previously documented assessment. Patient and/or family ll1 updated on plan of care and expected duration. Pain level reassessed. Patient is alert, oriented x 3, equal unlabored respirations, skin warm/dry/pink. Vital Signs: 10:36 BP 133 / 91; Pulse 104; Resp 18; Temp 98.6; Pulse Ox 98% on R/A; Weight 80.74 kg; iw Height 5 ft. 3 in. ; Pain 4/10; 13:06 BP 138 / 77; Pulse 78; Resp 18 S; Pulse Ox 99% on R/A; kc6 13:56 BP 117 / 81; Pulse 75; Resp 16; Pulse Ox 98% ; ll1 10:36 Body Mass Index 31.53 (80.74 kg, 160.02 cm) iw 10:36 Pain Scale: Adult iw ED Course: 10:28 Patient arrived in ED. as 10:28 Yaz Thakkar MD is Attending Physician. sp3 10:32 Mago Gagnon is Private Physician. as 10:38 Triage completed. iw 10:38 Arm band placed on. iw 10:49 Patient placed in an exam room, on a stretcher. iw 10:52 Elham Delgado, RN is Primary Nurse. kc6 11:23 Initial lab(s) drawn, by ED staff, sent to lab. Inserted saline lock: 20 gauge in right db antecubital area, using aseptic technique. Blood collected. Flushed with 10 mL NS. 11:35 Patient has correct armband on for positive identification. Bed in low position. Call kc6 light in reach. Side rails up X 1. Adult w/ patient. Pulse ox on. NIBP on. Door closed. Noise minimized. Lights dimmed. Warm blanket given. Pillow given. Verbal reassurance given. 11:35 Patient maintains SpO2 saturation greater than 95% on room air. kc6 12:22 CT Abd/Pelvis - Without Contrast In Process Unspecified. EDMS 13:57 Provided Education on: finish all prescribed antibiotics. ll1 13:57 No provider procedures requiring assistance completed. IV discontinued, intact, ll1 bleeding controlled, No redness/swelling at site. Pressure dressing applied. Administered Medications: 11:25 Drug: TORadol - Ketorolac IVP 15 mg IVP once Route: IVP; Site: right antecubital; kc6 12:37 Follow up: Response: No adverse reaction kc6 11:25 Drug: NS 0.9% IV 1000 ml IV at 1 bolus Per protocol; to be given as a bolus over 60 kc6 minutes Route: IV; Rate: 1 bolus; Site: right antecubital; 12:37 Follow up: Response: No adverse reaction; IV Status: Completed infusion; IV Intake: kc6 1000ml 11:26 Drug: Ondansetron IVP 4 mg IVP once; over 2 minutes Route: IVP; Site: right antecubital;kc6 12:37 Follow up: Response: No adverse reaction kc6 12:22 Not Given (Patient Refused): morphineor iv 4 mg IVP once over 4 mins kc6 13:05 Drug: levofloxacin IVPB 500 mg 100 ml IVPB once over 60 mins Volume: 100 ml; Route: kc6 IVPB; Infused Over: 60 mins; Site: right antecubital; 13:58 Follow up: Response: No adverse reaction; IV Status: Completed infusion; IV Intake: ll1 100ml 13:47 Drug: morphine IVP or IV 4 mg IVP once over 4 mins {Note: RASS 0, pain 5/10.} Route: iw IVP; Infused Over: 4 mins; Site: right antecubital; 13:58 Follow up: Response: No adverse reaction; Pain is decreased; RASS: Alert and Calm (0) 1 Medication: 11:35 VIS not applicable for this client. kc6 Intake: 12:37 IV: 1000ml; Total: 1000ml. kc6 13:58 IV: 100ml; Total: 1100ml. 1 Outcome: 13:31 Discharge ordered by . sp3 13:57 Discharged to home ambulatory, 1 13:57 Condition: stable 13:57 Discharge instructions given to patient, family, Instructed on discharge instructions, follow up and referral plans. no drinking with medication, no driving heavy equipment, medication usage, Demonstrated understanding of instructions, follow-up care, medications, Prescriptions given X 2, 13:58 Patient left the ED. 1 Addendum: 07/20/2024 08:06 Addendum: Culture Results: Positive urine culture. No further action required. Bacteria e b sensitive to prescribed antibiotic. Signatures: Dispatcher [employer] EDMS Zahida Wilson Irene, RN RN iw Noreen Mart Lynsay, RN RN ll1 Yaz Thakkar MD MD sp3 Elham Delgado RN RN kc6 Yasmine Castellanos RN RN db Corrections: (The following items were deleted from the chart) 07/18 11:26 11:25 morphine IVP or IV 4 mg IVP in right antecubital over 4 mins kc6 kc6
--- NOTE | 2024-07-18 13:32 | EDPHYS ---
Physician Documentation [facility] Name: Mayda Argueta Age: 33 yrs Sex: Female : 1990 Arrival Date: 07/18/2024 Time: 10:28 Bed 12 Private MD: Mago Gagnon ED Physician Yaz Thakkar HPI: 07/18 13:27 This 33 yrs old Female presents to ER via Ambulatory with complaints of Left flank pain.sp3 13:27 33-year-old female with history of kidney stones, anxiety now presents ED with chief sp3 complaint left flank pain for the last 48 hours somewhat resolved with ketorolac. Patient states she has had 2 prior kidney stones in the past. 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 - Infectious Disease History:: Denies. - Social history:: Smoking status: Patient denies any tobacco usage or history of. ROS: 13:28 Constitutional: Negative for fever, chills, and weight loss, Eyes: Negative for injury, sp3 pain, redness, and discharge, ENT: Negative for injury, pain, and discharge, Neck: Negative for injury, pain, and swelling, Cardiovascular: Negative for chest pain, palpitations, and edema, Respiratory: Negative for shortness of breath, cough, wheezing, and pleuritic chest pain, Back: Negative for injury and pain, MS/Extremity: Negative for injury and deformity, Skin: Negative for injury, rash, and discoloration, Neuro: Negative for headache, weakness, numbness, tingling, and seizure, 13:28 All other systems are negative, Exam: 13:29 Constitutional: This is a well developed, well nourished patient who is awake, alert, sp3 and in no acute distress. Head/Face: Normocephalic, atraumatic. Eyes: Pupils equal round and reactive to light, extra-ocular motions intact. Lids and lashes normal. Conjunctiva and sclera are non-icteric and not injected. Cornea within normal limits. Periorbital areas with no swelling, redness, or edema. Neck: Trachea midline, no thyromegaly or masses palpated, and no cervical lymphadenopathy. Supple, full range of motion without nuchal rigidity, or vertebral point tenderness. No Meningismus. Chest/axilla: Normal chest wall appearance and motion. Nontender with no deformity. No lesions are appreciated. Cardiovascular: Regular rate and rhythm with a normal S1 and S2. No gallops, murmurs, or rubs. Normal PMI, no JVD. No pulse deficits. Respiratory: Lungs have equal breath sounds bilaterally, clear to auscultation and percussion. No rales, rhonchi or wheezes noted. No increased work of breathing, no retractions or nasal flaring. Skin: Warm, dry with normal turgor. Normal color with no rashes, no lesions, and no evidence of cellulitis. MS/ Extremity: Pulses equal, no cyanosis. Neurovascular intact. Full, normal range of motion. Neuro: Awake and alert, GCS 15, oriented to person, place, time, and situation. Cranial nerves II-XII grossly intact. Motor strength 5/5 in all extremities. Sensory grossly intact. Cerebellar exam normal. Normal gait. Psych: Awake, alert, with orientation to person, place and time. Behavior, mood, and affect are within normal limits. 13:29 Abdomen/GI: Mild left-sided pain without rebound guarding or peritoneal signs. Positive left CVA tenderness mild in nature., Vital Signs: 10:36 BP 133 / 91; Pulse 104; Resp 18; Temp 98.6; Pulse Ox 98% on R/A; Weight 80.74 kg; iw Height 5 ft. 3 in. ; Pain 4/10; 13:06 BP 138 / 77; Pulse 78; Resp 18 S; Pulse Ox 99% on R/A; kc6 13:56 BP 117 / 81; Pulse 75; Resp 16; Pulse Ox 98% ; ll1 10:36 Body Mass Index 31.53 (80.74 kg, 160.02 cm) iw 10:36 Pain Scale: Adult iw MDM: 10:40 Medical Screening Exam initiated sp3 13:29 Data reviewed: vital signs, nurses notes, lab test result(s), radiologic studies. ED sp3 course: 33-year-old female with left flank pain and left abdominal pain. Differential diagnosis includes ureterolithiasis/kidney stone spectrum, UTI/pyelonephritis Bactrim, other intra-abdominal pathology, musculoskeletal, among others. CT scan demonstrates no ureteral lithiasis and a few intrarenal stones. No hydronephrosis noted. WBC count is normal however UA demonstrates extensive infection. Given CVA tenderness I believe patient has pyelonephritis early stage. We will treat with Levaquin 1 dose IV and discharge patient home on p.o. Levaquin and pain medication as needed. Follow-up with PCP.. 07/18 10:57 Order name: CBC with Diff; Complete Time: 12:55 sp3 07/18 10:57 Order name: CMP; Complete Time: 12:55 sp3 07/18 10:57 Order name: Lipase; Complete Time: 12:55 sp3 07/18 10:57 Order name: Urinalysis w/ reflexes; Complete Time: 12:55 sp3 07/18 11:04 Order name: Test, Urine; Complete Time: 12:55 bd 07/18 11:40 Order name: Urine Culture EDOK 07/18 10:57 Order name: CT Abd/Pelvis - Without Contrast; Complete Time: 12:55 sp3 07/18 10:57 Order name: IV Saline Lock; Complete Time: 11:25 sp3 07/18 10:57 Order name: Labs collected and sent; Complete Time: 11:25 sp3 Administered Medications: 11:25 Drug: TORadol - Ketorolac IVP 15 mg IVP once Route: IVP; Site: right antecubital; kc6 12:37 Follow up: Response: No adverse reaction kc6 11:25 Drug: NS 0.9% IV 1000 ml IV at 1 bolus Per protocol; to be given as a bolus over 60 kc6 minutes Route: IV; Rate: 1 bolus; Site: right antecubital; 12:37 Follow up: Response: No adverse reaction; IV Status: Completed infusion; IV Intake: kc6 1000ml 11:26 Drug: Ondansetron IVP 4 mg IVP once; over 2 minutes Route: IVP; Site: right antecubital;kc6 12:37 Follow up: Response: No adverse reaction kc6 12:22 Not Given (Patient Refused): morphineor iv 4 mg IVP once over 4 mins kc6 13:05 Drug: levofloxacin IVPB 500 mg 100 ml IVPB once over 60 mins Volume: 100 ml; Route: kc6 IVPB; Infused Over: 60 mins; Site: right antecubital; 13:58 Follow up: Response: No adverse reaction; IV Status: Completed infusion; IV Intake: ll1 100ml 13:47 Drug: morphine IVP or IV 4 mg IVP once over 4 mins {Note: RASS 0, pain 5/10.} Route: iw IVP; Infused Over: 4 mins; Site: right antecubital; 13:58 Follow up: Response: No adverse reaction; Pain is decreased; RASS: Alert and Calm (0) ll1 Disposition Summary: 07/18/24 13:31 Discharge Ordered Notes: Location: Home sp3 Condition: Stable sp3 Diagnosis - Pyelonephritis, abdominal pain, left flank pain sp3 Followup: sp3 - With: Private Physician - When: Upon discharge from the Emergency Department - Reason: Continuance of care Discharge Instructions: - Discharge Summary Sheet sp3 - Pyelonephritis, Adult sp3 Forms: - Medication Reconciliation Form sp3 - Antibiotic Education sp3 - Prescription Opioid Use sp3 - Patient Portal Instructions sp3 - Leadership Thank You Letter sp3 Prescriptions: - Tramadol 50 mg Oral Tablet - take 1 tablet ORAL route every 8 hours as needed; 12 tablet; Refills: 0, sp3 Product Selection Permitted - levofloxacin 500 mg Oral tablet - take 1 tablet ORAL route once daily for 7 days; 7 tablet; Refills: 0, Product sp3 Selection Permitted Signatures: Dispatcher [employer] EDMS Frieda Quintanilla, TK FREY Yaz Thakkar MD MD sp3 Elham Delgado RN RN kc6 Antonio Hills RN ll1 Corrections: (The following items were deleted from the chart) 10:57 10:57 CBC+H.LAB.BRZ ordered. EDMS EDMS 10:57 10:57 COMPREHENSIVE METABOLIC PANEL+C.LAB.BRZ ordered. EDMS EDMS 10:57 10:57 LIPASE+C.LAB.BRZ ordered. EDMS EDMS 10:57 10:57 Urinalysis+U.LAB.BRZ ordered. EDMS EDMS
[2024-07-18 14:18] VITALS: TEMP 98.6
[2024-07-18 14:24] VITALS: BP 117/81; O2SAT 98
== END 2024-07-18 13:58 | disposition home or self-care (01) ==
LOC: ER 10:28
DX: N12 Tubulo-interstitial nephritis, not specified as acute or chronic (principal); Z87.442 Personal history of urinary calculi
CPT/HCPCS: 96365; 96361; 87088; 85025; 81001; 87086; 36415; 81025; 87077; 87186; 83690; 80053; 74176; 96375; 99284; J2405; J7030

== ENCOUNTER 2025-01-23 13:32 | Emergency (ER) | payer OTHER ==
[2025-01-23] MEDS ORDERED: MORPHINE 2 MG/ML SYR ONE (14:12)
[2025-01-23 14:35] LABS: Absolute Lymphocytes (CBC) 2.4 K/uL (0.7-4.9); Hematocrit 37.0 % (36.0-45.0); Hemoglobin 12.1 g/dL (12.0-15.0); MCH 28.5 pg (27.0-35.0); MCHC 32.8 g/dL (32.0-36.0); MCV 86.9 fL (80-100); MPV 8.6 fL (7.6-11.3); Nucleated RBC Absolute Count 0.0 (0-0); Nucleated Red Blood Cells % 0.0 % (0-0); RBC Red Blood Cell Count 4.26 M/uL (3.86-4.86); White Blood Count 7.90 thou/uL (4.3-10.9)
[2025-01-23 14:43] LABS: Urine Culture Reflex Order REFLEXED; Urine Microscopic Reflex YN ORDER UMIC
[2025-01-23 14:51] LABS: Anion Gap 8.4 mEq/L (5.0-15.0); BUN Blood Urea Nitrogen 17.0 mg/dL (7-18); Glucose Level 80.0 mg/dL (74-106); Potassium 3.4 mEq/L (3.5-5.1)
--- NOTE | 2025-01-23 15:23 | RAD REPORT ---
EXAMINATION: Abdomen Pelvis Wo Contrast CLINICAL INDICATION: Female, 34 years old.right flank pain TECHNIQUE: CT abdomen and pelvis was performed, without IV contrast, as per department protocol. Axia l, sagittal and coronal reconstructions were obtained. One or more of the following dose reduction techniques were used: Automated exposure control, adjustment of the mA and/or kV according to the pat ient size, and/or iterative reconstruction. Unless otherwise specified, incidental findings do not require dedicated imaging follow-up. [id number]. IV CONTRAST: Not administered. COMPARISON: 07/18/2024 FINDINGS: The lack of intravenous contrast limits the sensitivity of this exam for evaluation of solid visceral organs, vascular structures, and retroperitoneum. LOWER CHEST: No acute process identified. No significant pericardial effusion. Probable ruptured gaetano st prostheses which are partially imaged. UPPER GI: No significant abnormality. LIVER: No significant focal abnormality. GALLBLADDER/BILE DUCTS: Cholecystectomy. Moderate extrahepatic biliary ductal dilatation. This could be secondary to the post-cholecystectomy state. Recommend correlation with LFT's. If abnormal, consider MRCP for further evaluation. ? PANCREAS: No mass, ductal dilation, or kristi-pancreatic fluid. SPLEEN: Unremarkable. ADRENALS: No adrenal masses. KIDNEYS AND URETERS: Mild right-sided hydroureteronephrosis secondary to a 3 mm stone in the right di stal ureter. Bilateral renal calculi. ABDOMINAL AORTA AND OTHER VESSELS: Normal caliber aorta and IVC. PERITONEUM: No abnormal free fluid. No free air. LYMPH NODES: No pathologic lymphadenopathy. ABDOMINAL WALL: Unremarkable SMALL BOWEL/COLON: Small bowel has normal course and caliber. No colonic wall thickening or pericolon ic inflammatory changes. Appendix absent. URINARY BLADDER: Underdistended but grossly unremarkable. REPRODUCTIVE ORGANS: No pathologic process. MUSCULOSKELETAL: No acute or suspicious osseous abnormality. ADDITIONAL FINDINGS: None. IMPRESSION: Mild right-sided hydroureteronephrosis secondary to a 3 mm stone in the right distal ureter.
[2025-01-23] MEDS ORDERED: NA CHLORIDE 0.9% 1,000 ML ONE (15:30)
[2025-01-23] MEDS ORDERED: KETOROLAC 30 MG/ML INJ ONE (16:34)
[2025-01-23] MEDS ORDERED: TAMSULOSIN 0.4 MG SR CAP ONE (16:34)
--- NOTE | 2025-01-23 17:20 | EDPHYS ---
Physician Documentation [facility] Name: Mayda Argueta Age: 34 yrs Sex: Female : 1990 Arrival Date: 01/23/2025 Time: 13:32 Bed 16 Private MD: ED Physician Abdirahman Fields HPI: 01/23 15:59 This 34 yrs old Female presents to ER via Ambulatory with complaints of Possible Kidney ms3 Stone. 15:59 34-year-old female past medical history of anxiety, depression, kidney stones presents ms3 to the emergency department for right flank pain that began on John and has become worse over the last 2 days. Patient states the pain radiates to the front. She rates her pain an 8/10. Patient endorses urinary frequency. She denies dysuria.. Historical: - Allergies: 13:54 No Known Allergies; bp - PMHx: 13:54 Anxiety; depressive disorder; Kidney stones; bp - PSHx: 13:54 Appendectomy; section; Cholecystectomy; bp - Immunization history:: Adult Immunizations up to date. - Infectious Disease History:: Denies. - Social history:: Smoking status: Patient denies any tobacco usage or history of. ROS: 15:59 Constitutional: Negative for fever, and chills. Cardiovascular: Negative for chest ms3 pain, and palpitations. Respiratory: Negative for shortness of breath, cough, wheezing, and pleuritic chest pain, 15:59 Skin: Negative for injury, rash, and discoloration, 15:59 Abdomen/GI: Positive for flank pain, Exam: 15:59 Constitutional: This is a well developed, well nourished patient who is awake, alert, ms3 and in no acute distress. Cardiovascular: Regular rate and rhythm with a normal S1 and S2. No gallops, murmurs, or rubs. Normal PMI, no JVD. No pulse deficits. Respiratory: Lungs have equal breath sounds bilaterally, clear to auscultation and percussion. No rales, rhonchi or wheezes noted. No increased work of breathing, no retractions or nasal flaring. Abdomen/GI: Soft, non-tender, with normal bowel sounds. No distension or tympany. No guarding or rebound. No evidence of tenderness throughout. 15:59 Skin: Warm, dry with normal turgor. Normal color with no rashes, no lesions, and no evidence of cellulitis. MS/ Extremity: Pulses equal, no cyanosis. Neurovascular intact. Full, normal range of motion. 15:59 Back: pain, that is moderate, CVA tenderness, that is mild, is noted on the right, Vital Signs: 13:53 BP 121 / 81; Pulse 84; Resp 16; Temp 98; Pulse Ox 100% ; bp 15:35 BP 111 / 80; Pulse 70; Resp 16; Pulse Ox 100% on R/A; jb4 16:53 BP 100 / 68; Pulse 51; Resp 16; Pulse Ox 98% on R/A; jb4 17:37 BP 122 / 96; Pulse 72; Resp 16; Pulse Ox 100% on R/A; jb4 MDM: 14:03 Medical Screening Exam initiated ms3 15:59 Differential diagnosis: nephrolithiasis, UTI. Data reviewed: vital signs, nurses notes, ms3 lab test result(s), radiologic studies, CT scan, and as a result, I will discharge patient. I considered the following discharge prescriptions or medication management in the emergency department Medications were administered in the Emergency Department. See MAR. Independent interpretation of the following test(s) in the Emergency Department CT Scan: My interpretation is CT abdomen pelvis without contrast images reviewed by me reveal right kidney stone. Counseling: I had a detailed discussion with the patient and/or guardian regarding the historical points, exam findings, and any diagnostic results supporting the discharge/admit diagnosis, lab results, radiology results, the need for outpatient follow up. ED course: Discussed lab and CT results with patient. Patient to follow-up with urology in 2 to 3 days. All questions were answered. Return precautions were discussed include worsening symptoms, or any other concerns.. 01/23 13:40 Order name: UA Rfx Zeus Cult if indicated; Complete Time: 15:28 ms3 01/23 13:40 Order name: CBC with Diff; Complete Time: 15:28 ms3 01/23 13:40 Order name: BMP; Complete Time: 15:28 ms3 01/23 13:40 Order name: Test, Serum; Complete Time: 15:28 ms3 01/23 14:51 Order name: Urine Culture EDMS 01/23 14:03 Order name: CT Abd/Pelvis - Without Contrast; Complete Time: 15:28 ms3 Administered Medications: 14:29 Drug: morphine IVP or IV 4 mg IVP once over 4 mins Route: IVP; Infused Over: 4 mins; jb4 Site: left antecubital; 15:41 Follow up: Response: No adverse reaction; Marked relief of symptoms jb4 15:40 Drug: NS 0.9% IV 1000 ml IV at 1 bolus Per protocol; to be given as a bolus over 60 jb4 minutes Route: IV; Rate: 1 bolus; Site: left antecubital; 17:39 Follow up: Response: No adverse reaction; IV Status: Completed infusion; IV Intake: jb4 1000ml 16:44 Drug: Ketorolac IVP 10 mg 10 mg IVP once Route: IVP; Site: left antecubital; jb4 17:39 Follow up: Response: No adverse reaction; Marked relief of symptoms; Pain is decreased jb4 16:45 Drug: Tamsulosin PO Extended Release 24 hour Capsule 0.4 mg PO once Route: PO; jb4 17:39 Follow up: Response: No adverse reaction jb4 Disposition Summary: 01/23/25 17:19 Discharge Ordered Notes: Location: Home ms3 Condition: Stable ms3 Diagnosis - Kidney stone 3mm ms3 - Right flank pain ms3 Followup: ms3 - With: Sumit Sams MD - When: 2 - 3 days - Reason: Recheck today's complaints Discharge Instructions: - Discharge Summary Sheet ms3 - Kidney Stones ms3 Forms: - Medication Reconciliation Form ms3 - Antibiotic Education ms3 - Prescription Opioid Use ms3 - Patient Portal Instructions ms3 - Leadership Thank You Letter ms3 Prescriptions: - Flomax 0.4 mg Oral capsule - take 1 capsule ORAL route daily; 15 capsule; Refills: 0, Product Selection ms3 Permitted - ketorolac 10 mg Oral tablet - take 1 tablet ORAL route every 6 hours as needed for pain; maximum total ms3 duration of 5 days from all oral, intranasal, or parenteral formulations; 20 tablet; Refills: 0, Product Selection Permitted Signatures: Dispatcher [employer] Brian Scales RN RN jb4 Abdulkadir Benedict RN RN bp Abdirahman Fields DO DO ms3 Corrections: (The following items were deleted from the chart) 13:41 13:41 UA Rfx Zeus Cult if indicated+U.LAB.BRZ ordered. EDMS EDMS 13:41 13:41 CBC+H.LAB.BRZ ordered. EDMS EDMS : 13:41 BASIC METABOLIC PANEL+C.LAB.BRZ ordered. EDMS EDMS : 13:41 TEST, SERUM+SC.LAB.BRZ ordered. EDMS EDMS 14: 14:04 Abdomen Pelvis Wo Con+CT.RAD.BRZ ordered. EDMS EDMS
--- NOTE | 2025-01-23 17:20 | ER ---
Nurse's Notes [facility] Name: Mayda Argueta Age: 34 yrs Sex: Female : 1990 Arrival Date: 01/23/2025 Time: 13:32 Bed 16 Private MD: Diagnosis: Kidney stone 3mm ;Right flank pain Presentation: 01/23 13:53 Chief complaint: Patient states: R FLANK PAIN SINCE TUESDAY WITH URINARY FREQUENCY. bp Coronavirus screen: At this time, the client does not indicate any symptoms associated with coronavirus-19. Ebola Screen: No symptoms or risks identified at this time. Initial Sepsis Screen: Does the patient meet any 2 criteria? No. Patient's initial sepsis screen is negative. Does the patient have a suspected source of infection? No. Patient's initial sepsis screen is negative. Risk Assessment: Do you want to hurt yourself or someone else? Patient reports no desire to harm self or others. Onset of symptoms is unknown. 13:53 Method Of Arrival: Ambulatory bp 13:53 Acuity: CATHY 3 bp Triage Assessment: 13:54 General: Appears in no apparent distress. uncomfortable, Behavior is calm, cooperative, bp appropriate for age. Pain: Complains of pain in right flank. EENT: No deficits noted. Neuro: No deficits noted. Cardiovascular: No deficits noted. Respiratory: No deficits noted. GI: No signs and/or symptoms were reported involving the gastrointestinal system. : Reports pain in right flank(s). Derm: No deficits noted. Musculoskeletal: No deficits noted. Historical: - Allergies: 13:54 No Known Allergies; bp - PMHx: 13:54 Anxiety; depressive disorder; Kidney stones; bp - PSHx: 13:54 Appendectomy; section; Cholecystectomy; bp - Immunization history:: Adult Immunizations up to date. - Infectious Disease History:: Denies. - Social history:: Smoking status: Patient denies any tobacco usage or history of. Screenin:36 [facility] ED Fall Risk Assessment (Adult) History of falling in the last 3 months, jb4 including since admission No falls in past 3 months (0 pts) Confusion or Disorientation No (0 pts) Intoxicated or Sedated No (0 pts) Impaired Gait No (0 pts) Mobility Assist Device Used No (0 pt) Altered Elimination No (0 pt) Score/Fall Risk Level 0 - 2 = Low Risk Oriented to surroundings, Maintained a safe environment. Abuse screen: Denies threats or abuse. Nutritional screening: No deficits noted. Tuberculosis screening: No symptoms or risk factors identified. Assessment: 15:17 Reassessment: Patient appears in no apparent distress at this time. Patient and/or jb4 family updated on plan of care and expected duration. Pain level reassessed. Patient is alert, oriented x 3, equal unlabored respirations, skin warm/dry/pink. Patient states feeling better. 16:53 Reassessment: Patient appears in no apparent distress at this time. Patient and/or jb4 family updated on plan of care and expected duration. Pain level reassessed. Patient is alert, oriented x 3, equal unlabored respirations, skin warm/dry/pink. 17:37 Reassessment: Patient appears in no apparent distress at this time. Patient and/or jb4 family updated on plan of care and expected duration. Pain level reassessed. Patient is alert, oriented x 3, equal unlabored respirations, skin warm/dry/pink. Vital Signs: 13:53 BP 121 / 81; Pulse 84; Resp 16; Temp 98; Pulse Ox 100% ; bp 15:35 BP 111 / 80; Pulse 70; Resp 16; Pulse Ox 100% on R/A; jb4 16:53 BP 100 / 68; Pulse 51; Resp 16; Pulse Ox 98% on R/A; jb4 17:37 BP 122 / 96; Pulse 72; Resp 16; Pulse Ox 100% on R/A; jb4 ED Course: 13:34 Patient arrived in ED. im 13:40 Abdirahman Fields DO is Attending Physician. ms3 13:54 Triage completed. bp 13:54 Arm band placed on. bp 13:55 Brian Oviedo, RN is Primary Nurse. jb4 15:18 CT Abd/Pelvis - Without Contrast In Process Unspecified. EDMS 15:36 Patient has correct armband on for positive identification. Bed in low position. Call jb4 light in reach. Side rails up X 1. Provided Education on: plan of care. 15:36 No provider procedures requiring assistance completed. jb4 17:19 Sumit Sams MD is Referral Physician. ms3 17:37 IV discontinued, intact, bleeding controlled, No redness/swelling at site. Pressure jb4 dressing applied. Administered Medications: 14:29 Drug: morphine IVP or IV 4 mg IVP once over 4 mins Route: IVP; Infused Over: 4 mins; jb4 Site: left antecubital; 15:41 Follow up: Response: No adverse reaction; Marked relief of symptoms jb4 15:40 Drug: NS 0.9% IV 1000 ml IV at 1 bolus Per protocol; to be given as a bolus over 60 jb4 minutes Route: IV; Rate: 1 bolus; Site: left antecubital; 17:39 Follow up: Response: No adverse reaction; IV Status: Completed infusion; IV Intake: jb4 1000ml 16:44 Drug: Ketorolac IVP 10 mg 10 mg IVP once Route: IVP; Site: left antecubital; jb4 17:39 Follow up: Response: No adverse reaction; Marked relief of symptoms; Pain is decreased jb4 16:45 Drug: Tamsulosin PO Extended Release 24 hour Capsule 0.4 mg PO once Route: PO; jb4 17:39 Follow up: Response: No adverse reaction jb4 Medication: 17:37 VIS not applicable for this client. jb4 Intake: 17:39 IV: 1000ml; Total: 1000ml. jb4 Outcome: 17:19 Discharge ordered by . ms3 17:37 Discharged to home ambulatory, jb4 17:37 Condition: stable 17:37 Discharge instructions given to patient, Instructed on discharge instructions, follow up and referral plans. no drinking with medication, medication usage, Demonstrated understanding of instructions, follow-up care, medications, Prescriptions given X 2, 17:40 Patient left the ED. jb4 Signatures: Dispatcher [employer] EDBrian Grimes RN TK jb4 Abdulkadir Benedict RN RN bp Sims, Marcus, DO DO ms3 Mara Anguiano
[2025-01-23 17:49] VITALS: TEMP 98
[2025-01-23 17:53] VITALS: BP 122/96; O2SAT 100
== END 2025-01-23 17:40 | disposition home or self-care (01) ==
LOC: ER 13:32
DX: N20.0 Calculus of kidney (principal); Z87.442 Personal history of urinary calculi
CPT/HCPCS: 96361; 87088; 85025; 81001; 87086; 80048; 36415; 84703; 74176; 96375; 96374; 99284; J1885; J2270; J7030